=== PATIENT | female | born 1955 | race Asian ===

== ENCOUNTER 2019-01-24 22:09 | Emergency (ER) | payer SELFPAY ==
[~2019-01-24] VITALS: Ht 160 cm; Wt 68.2 kg
[2019-01-24 22:12] VITALS: BP 132/80
[2019-01-24] MEDS ORDERED: INSLAN SQ (22:44)
== END 2019-01-25 01:30 | disposition home or self-care (01) ==
LOC: EMS 22:11
DX: F31.9 Bipolar disorder, unspecified (principal); E11.9 Type 2 diabetes mellitus without complications; I10 Essential (primary) hypertension; Z79.4 Long term (current) use of insulin

== ENCOUNTER 2019-07-14 00:47 | Inpatient (IN) | payer MEDICARE ==
[~2019-07-14] VITALS: Ht 160 cm; Wt 73.8 kg
[~2019-07-14 00:47] MED LIST: AMLO5TAB9 PO; CIPR500S5 PO; DIVA500T52 PO; FOLI1 PO; INSLAN SQ; LISI-662 PO; METF-960 PO; MULT-248 PO; NALT50TA PO; SOLI5 PO; THIA100T67 PO
[2019-07-14 02:15] LABS: GLUCOSE,POINT OF CARE 235 MG/DL (70-110)
[2019-07-14] MEDS ORDERED: METF-960 PO (02:46)
[2019-07-14] MEDS ORDERED: DIVA125T32 PO (02:46)
[2019-07-14] MEDS ORDERED: NALT50TA6 PO (02:46)
[2019-07-14] MEDS ORDERED: ZIPR20CA2 PO (02:46)
[2019-07-14] MEDS ORDERED: SOLI5 PO (02:46)
[2019-07-14] MEDS ORDERED: AMLO5TAB9 PO (02:46)
[2019-07-14] MEDS ORDERED: LISI-660 PO (02:46)
[2019-07-14] MEDS ORDERED: DIVALPROEX SODIUM 125 MG DR TABLET PO ONE (03:45)
[2019-07-14] MEDS ORDERED: SOLIFENACIN SUCCINATE 5 MG TABLET PO ONE (03:45)
[2019-07-14] MEDS ORDERED: AmLODIPine BESYLATE 5 MG TABLET PO ONE (03:45)
[2019-07-14] MEDS ORDERED: LISINOPRIL 10 MG TABLET PO ONE (03:45)
[2019-07-14] MEDS ORDERED: MetFORMIN HCL 500 MG TABLET PO ONE (03:45)
[2019-07-14] MEDS ORDERED: ZIPRASIDONE HCL 20 MG CAPSULE PO ONE (04:00)
[2019-07-14 04:37] LABS: BASOPHILS % (AUTO) 0.6 % (0.0-2.0); EOSINOPHILS % (AUTO) 4.8 % (1.0-6.0); HEMATOCRIT 39.4 % (36-46); HEMOGLOBIN 13.2 g/dL (12.0-16.0); LYMPHOCYTES # (AUTO) 3.2 K/uL (1.0-4.8); LYMPHOCYTES % (AUTO) 40.4 % (22.0-44.0); MEAN CORPUSCULAR HEMOGLOBIN 31.2 pg (26.0-34.0); MEAN CORPUSCULAR HGB CONC 33.6 G/dL (31.0-37.0); MEAN CORPUSCULAR VOLUME 93 fL (80-100); MONOCYTES # (AUTO) 0.6 K/uL (0.1-1.0); MONOCYTES % (AUTO) 7.6 % (2.0-9.0); NEUTROPHILS # (AUTO) 3.7 K/uL (1.8-7.7); NEUTROPHILS % (AUTO) 46.6 % (40.0-70.0); PLATELET COUNT (AUTO) 312 K/uL (150-450); RED BLOOD CELL COUNT(AUTO) 4.24 MIL/uL (4.00-5.20); RED CELL DISTRIBUTION WIDTH 14.1 % (11.5-14.5)
[2019-07-14 05:14] LABS: ALANINE AMINOTRANSFERASE 12 U/L (12-78); ALKALINE PHOSPHATASE 126 U/L (46-116); ANION GAP 7 mmol/L (8-16); ASPARTATE AMINOTRANSFERASE 12 U/L (15-37); BILIRUBIN,TOTAL 0.2 mg/dL (0.1-1.0); CALCIUM, TOTAL 9.1 mg/dL (8.8-10.5); CARBON DIOXIDE 29 mmol/L (22-29); CHLORIDE 99 mmol/L (98-107); CREATININE 0.82 mg/dL (0.60-1.30); GLOMERULAR FILTR. RATE CALC > 60 mL/min (>60); GLUCOSE,RANDOM 252 mg/dL (70-110); POTASSIUM 3.6 mmol/L (3.5-5.1); SODIUM SERUM 135 mmol/L (136-145); TOTAL PROTEIN, SERUM 7.4 g/dL (6.4-8.2); UREA NITROGEN, BLOOD 11 mg/dL (7-18)
[2019-07-14] MEDS ORDERED: ZOLPIDEM TARTRATE 10 MG TABLET PO PRN (05:45)
[2019-07-14] MEDS ORDERED: OLANZapine 5 MG TABLET PO PRN ×2 (05:45→06:00)
[2019-07-14] MEDS ORDERED: LORazepam 2 MG TABLET PO PRN (05:45)
[2019-07-14 06:55] LABS: GLUCOSE,POINT OF CARE 217 MG/DL (70-110)
[2019-07-14] MEDS ORDERED: LOPERAMIDE HCL 2 MG CAPSULE PO PRN (07:15)
[2019-07-14] MEDS ORDERED: ALBUTEROL SULFATE HFA 90 MCG/PUFF 8 GM INHALER IH PRN (07:15)
[2019-07-14] MEDS ORDERED: CloNIDine HCL 0.1 MG TABLET PO PRN (07:15)
[2019-07-14] MEDS ORDERED: DOCUSATE SODIUM 100 MG CAPSULE PO PRN (07:15)
[2019-07-14] MEDS ORDERED: PETROLATUM,WHITE 28 GM JELLY TP PRN (07:15)
[2019-07-14] MEDS ORDERED: IBUPROFEN 400 MG TABLET PO PRN (07:15)
[2019-07-14] MEDS ORDERED: GuaiFENesin/D-METHORPHAN [SUGAR-FREE] 200-20MG/10 ML SYRUP UDCUP PO PRN (07:15)
[2019-07-14] MEDS ORDERED: ACETAMINOPHEN 325 MG TABLET PO PRN (07:15)
[2019-07-14] MEDS ORDERED: MAGNESIUM HYDROXIDE SUSPENSION 30 ML UDCUP PO PRN (07:15)
[2019-07-14] MEDS ORDERED: NICOTINE 14 MG/24 HOUR PATCH TD PRN (07:15)
[2019-07-14] MEDS ORDERED: ONDANSETRON HCL 4 MG TABLET PO PRN (07:15)
[2019-07-14 14:25] VITALS: BP 140/78
[2019-07-14 14:26] LABS: GLUCOMETER DEV NAME(LOC) BV3S.; GLUCOSE,POINT OF CARE 206 MG/DL (70-110)
[2019-07-14] MEDS ORDERED: GLUCAGON,HUMAN RECOMBINANT 1 MG VIAL IM PRN (15:30)
[2019-07-14 16:15] VITALS: BP 140/74
[2019-07-14] MEDS: ZIPRASIDONE HCL 20 MG CAPSULE PO SCH (16:41)
[2019-07-14] MEDS: INSULIN LISPRO 100 UNITS/ML SQ PRN ×2 (17:00→21:00)
[2019-07-14 17:05] LABS: GLUCOMETER DEV NAME(LOC) BV3S.; GLUCOSE,POINT OF CARE 249 MG/DL (70-110)
[2019-07-14] MEDS: MetFORMIN HCL 500 MG TABLET PO SCH (17:07)
[2019-07-14] MEDS: LISINOPRIL 5 MG TABLET PO SCH (17:07)
[2019-07-14 20:46] LABS: GLUCOMETER DEV NAME(LOC) BV3S.; GLUCOSE,POINT OF CARE 258 MG/DL (70-110)
[2019-07-14] MEDS: INSULIN GLARGINE,HUM.REC.ANLOG 100 UNITS/ML SQ SCH (21:00)
[2019-07-15 01:30] VITALS: BP 133/76
[2019-07-15] MEDS ORDERED: PNEUMOCOCCAL VACCINE POLYVALENT 0.5 ML VIAL [PPSV23] IM ONE (02:00)
[2019-07-15] MEDS: ZIPRASIDONE HCL 20 MG CAPSULE PO SCH ×2 (06:35→16:34)
[2019-07-15] MEDS: MetFORMIN HCL 500 MG TABLET PO SCH ×2 (06:35→16:34)
[2019-07-15 06:58] LABS: GLUCOMETER DEV NAME(LOC) BV3S.; GLUCOSE,POINT OF CARE 119 MG/DL (70-110)
[2019-07-15 08:20] VITALS: BP 135/75
[2019-07-15 08:49] LABS: CHOL/HDL RATIO 5.5 (3.9-5.7)
[2019-07-15] MEDS: LISINOPRIL 5 MG TABLET PO SCH ×2 (09:16→16:33)
[2019-07-15] MEDS: INSULIN LISPRO 100 UNITS/ML SQ PRN ×3 (11:52→20:37)
[2019-07-15 12:01] LABS: GLUCOMETER DEV NAME(LOC) BV3S.; GLUCOSE,POINT OF CARE 150 MG/DL (70-110)
[2019-07-15] MEDS ORDERED: GuaiFENesin/D-METHORPHAN [SUGAR-FREE] 200-20MG/10 ML SYRUP UDCUP PO PRN (13:00)
[2019-07-15] MEDS ORDERED: HydrOXYzine PAMOATE 50 MG CAPSULE PO PRN (13:00)
[2019-07-15 16:15] LABS: GLUCOMETER DEV NAME(LOC) BV3S.; GLUCOSE,POINT OF CARE 223 MG/DL (70-110)
[2019-07-15] MEDS: THIAMINE HCL 100 MG TABLET PO SCH (16:34)
[2019-07-15 17:33] VITALS: BP 140/74
[2019-07-15] MEDS: DIVALPROEX SODIUM 500 MG ER TABLET PO SCH (20:32)
[2019-07-15] MEDS: INSULIN GLARGINE,HUM.REC.ANLOG 100 UNITS/ML SQ SCH (20:37)
[2019-07-15 20:48] LABS: GLUCOMETER DEV NAME(LOC) BV3S.; GLUCOSE,POINT OF CARE 156 MG/DL (70-110)
[2019-07-16 06:30] LABS: GLUCOMETER DEV NAME(LOC) BV3S.; GLUCOSE,POINT OF CARE 113 MG/DL (70-110)
[2019-07-16 06:32] VITALS: BP 144/81
[2019-07-16] MEDS: MetFORMIN HCL 500 MG TABLET PO SCH ×2 (07:02→16:12)
[2019-07-16] MEDS: ZIPRASIDONE HCL 20 MG CAPSULE PO SCH (07:02)
[2019-07-16 08:08] VITALS: BP 138/68
[2019-07-16] MEDS: LISINOPRIL 5 MG TABLET PO SCH ×2 (08:51→16:12)
[2019-07-16] MEDS: SOLIFENACIN SUCCINATE 5 MG TABLET PO SCH (08:51)
[2019-07-16] MEDS: MULTIVITAMINS WITH MINERALS, THERAPEUTIC TABLET PO SCH (08:51)
[2019-07-16] MEDS: NALTREXONE HCL 50 MG TABLET PO SCH (08:51)
[2019-07-16] MEDS: FOLIC ACID 1 MG TABLET PO SCH (08:51)
[2019-07-16] MEDS: THIAMINE HCL 100 MG TABLET PO SCH ×2 (08:51→16:12)
[2019-07-16 11:06] LABS: GLUCOMETER DEV NAME(LOC) BV3S.; GLUCOSE,POINT OF CARE 208 MG/DL (70-110)
[2019-07-16] MEDS: INSULIN LISPRO 100 UNITS/ML SQ PRN ×3 (11:43→21:00)
[2019-07-16] MEDS ORDERED: DIVA500T52 PO (15:26)
[2019-07-16] MEDS ORDERED: ZIPR40CA2 PO (15:26)
[2019-07-16] MEDS ORDERED: NALT50TA PO (15:26)
[2019-07-16] MEDS: ZIPRASIDONE HCL 40 MG CAPSULE PO SCH (16:12)
[2019-07-16 16:36] LABS: GLUCOMETER DEV NAME(LOC) BV3S.; GLUCOSE,POINT OF CARE 196 MG/DL (70-110)
[2019-07-16 19:20] VITALS: BP 116/69
[2019-07-16] MEDS: DIVALPROEX SODIUM 500 MG ER TABLET PO SCH (20:05)
[2019-07-16] MEDS: INSULIN GLARGINE,HUM.REC.ANLOG 100 UNITS/ML SQ SCH (21:00)
[2019-07-16 21:10] LABS: GLUCOMETER DEV NAME(LOC) BV3S.; GLUCOSE,POINT OF CARE 218 MG/DL (70-110)
[2019-07-17 06:16] LABS: GLUCOMETER DEV NAME(LOC) BV3S.; GLUCOSE,POINT OF CARE 132 MG/DL (70-110)
[2019-07-17 06:23] VITALS: BP 117/70
[2019-07-17] MEDS: ZIPRASIDONE HCL 40 MG CAPSULE PO SCH (06:56)
[2019-07-17] MEDS: MetFORMIN HCL 500 MG TABLET PO SCH (06:56)
[2019-07-17 08:07] VITALS: BP 148/90
[2019-07-17] MEDS ORDERED: BACTDSB PO (08:13)
[2019-07-17] MEDS ORDERED: CEPH250 PO (08:13)
[2019-07-17] MEDS: SOLIFENACIN SUCCINATE 5 MG TABLET PO SCH (08:17)
[2019-07-17] MEDS: NALTREXONE HCL 50 MG TABLET PO SCH (08:18)
[2019-07-17] MEDS: FOLIC ACID 1 MG TABLET PO SCH (08:18)
[2019-07-17] MEDS: LISINOPRIL 5 MG TABLET PO SCH (08:18)
[2019-07-17] MEDS: MULTIVITAMINS WITH MINERALS, THERAPEUTIC TABLET PO SCH (08:18)
[2019-07-17] MEDS: THIAMINE HCL 100 MG TABLET PO SCH (08:18)
[2019-07-17] MEDS ORDERED: SULFAMETHOX/TRIMETH DS 800-160 MG/TABLET PO SCH (09:00)
[2019-07-17] MEDS ORDERED: CEPHALEXIN MONOHYDRATE 250 MG CAPSULE PO SCH (09:00)
[2019-07-17] MEDS ORDERED: BACITRACIN 28.4 GM OINTMENT TP SCH (09:00)
== END 2019-07-17 10:00 | disposition home or self-care (01) | DRG 885 ==
LOC: EDBD 00:53 → EMS 00:53 → B3A 09:21
PROVIDERS: ADMIT Psychiatry & Neurology Psychiatry; ATTEND Psychiatry & Neurology Psychiatry
DX: F25.0 Schizoaffective disorder, bipolar type (principal); E87.1 Hypo-osmolality and hyponatremia; L03.119 Cellulitis of unspecified part of limb; E11.40 Type 2 diabetes mellitus with diabetic neuropathy, unspecified; E11.65 Type 2 diabetes mellitus with hyperglycemia; F32.9 Major depressive disorder, single episode, unspecified; F41.9 Anxiety disorder, unspecified; I10 Essential (primary) hypertension; R32 Unspecified urinary incontinence; Z79.4 Long term (current) use of insulin; Z91.14 Patient's other noncompliance with medication regimen; Z91.19 Patient's noncompliance with other medical treatment and regimen; Z63.9 Problem related to primary support group, unspecified; Z88.8 Allergy status to other drugs, medicaments and biological substances
CPT/HCPCS: G0480; J1815

== ENCOUNTER → 2019-09-26 | Outpatient (CLI) | payer MEDICARE ==
[~2019-09-26] MED LIST changes: +BACTDSB PO; +CEPH250 PO; +LISI-660 PO; +LISI-661 PO; +MAGOX PO; +NALT50TA6 PO; +ZIPR40CA2 PO; +ZIPR60CA2 PO
== END | disposition home or self-care (01) ==
LOC: LABMN 10:55
PROVIDERS: ATTEND Psychiatry & Neurology Psychiatry
DX: F25.9 Schizoaffective disorder, unspecified (principal); F17.200 Nicotine dependence, unspecified, uncomplicated; Z88.4 Allergy status to anesthetic agent

== ENCOUNTER 2019-09-28 12:22 | Emergency (ER) | payer MEDICARE ==
[~2019-09-28] VITALS: Ht 154.9 cm; Wt 68.0 kg
[~2019-09-28 12:22] MED LIST changes: -LISI-661 PO; -MAGOX PO; -ZIPR60CA2 PO
[2019-09-28] MEDS ORDERED: SODIUM CHLORIDE 0.9% 1,000 ML IV ONE (12:45)
[2019-09-28] MEDS ORDERED: ONDANSETRON HCL 4 MG/2 ML VIAL IVP ONE (12:45)
[2019-09-28 13:00] LABS: BASOPHILS % (AUTO) 0.4 % (0.0-2.0); EOSINOPHILS % (AUTO) 0.5 % (1.0-6.0); HEMATOCRIT 42.4 % (36-46); HEMOGLOBIN 14.1 g/dL (12.0-16.0); LYMPHOCYTES # (AUTO) 1.7 K/uL (1.0-4.8); LYMPHOCYTES % (AUTO) 14.7 % (22.0-44.0); MEAN CORPUSCULAR HEMOGLOBIN 30.5 pg (26.0-34.0); MEAN CORPUSCULAR HGB CONC 33.3 G/dL (31.0-37.0); MEAN CORPUSCULAR VOLUME 92 fL (80-100); MONOCYTES # (AUTO) 0.4 K/uL (0.1-1.0); MONOCYTES % (AUTO) 3.3 % (2.0-9.0); NEUTROPHILS # (AUTO) 9.4 K/uL (1.8-7.7); NEUTROPHILS % (AUTO) 81.1 % (40.0-70.0); PLATELET COUNT (AUTO) 363 K/uL (150-450); RED BLOOD CELL COUNT(AUTO) 4.63 MIL/uL (4.00-5.20); RED CELL DISTRIBUTION WIDTH 13.9 % (11.5-14.5)
[2019-09-28 13:13] LABS: ANION GAP 14 mmol/L (8-16); CALCIUM, TOTAL 9.2 mg/dL (8.8-10.5); CARBON DIOXIDE 23 mmol/L (22-29); CHLORIDE 100 mmol/L (98-107); CREATININE 0.99 mg/dL (0.60-1.30); GLOMERULAR FILTR. RATE CALC 58 mL/min (>60); GLUCOSE,RANDOM 179 mg/dL (70-110); POTASSIUM 3.4 mmol/L (3.5-5.1); SODIUM SERUM 137 mmol/L (136-145); UREA NITROGEN, BLOOD 9 mg/dL (7-18)
[2019-09-28 13:20] LABS: ALANINE AMINOTRANSFERASE 24 U/L (12-78); ALBUMIN 3.4 g/dL (3.4-5.0); ALKALINE PHOSPHATASE 123 U/L (46-116); ASPARTATE AMINOTRANSFERASE 19 U/L (15-37); BILIRUBIN,TOTAL 0.5 mg/dL (0.1-1.0); LIPASE 343 U/L (73-393); TOTAL PROTEIN, SERUM 8.1 g/dL (6.4-8.2); VALPROIC ACID 42 mcg/mL (50-100)
[2019-09-28 14:43] LABS: APPEARANCE,URINE CLOUDY (CLEAR); BILIRUBIN,URINE NEGATIVE (NEGATIVE); GLUCOSE, URINE (UA) NEGATIVE (NEGATIVE); KETONES,URINE 15 mg/dL (NEGATIVE); LEUKOCYTE ESTERASE ,URINE SMALL (NEGATIVE); OCCULT BLOOD,URINE NEGATIVE (NEGATIVE); PROTEIN,URINE POS 1+ (NEGATIVE)
[2019-09-28] MEDS ORDERED: POTASSIUM CHLORIDE 20 MEQ ER TABLET PO ONE (14:45)
[2019-09-28 14:54] LABS: AMPHET/METH SCREEN,URINE NEGATIVE (NEGATIVE); BARBITURATE SCREEN, URINE NEGATIVE (NEGATIVE); BENZODIAZEPINES SCREEN,URINE NEGATIVE (NEGATIVE); CANNABINOID SCREEN,URINE NEGATIVE (NEGATIVE); COCAINE SCREEN,URINE NEGATIVE (NEGATIVE); METHADONE SCREEN, URINE NEGATIVE (NEGATIVE); OPIATE SCREEN,URINE NEGATIVE (NEGATIVE)
[2019-09-28 14:57] LABS: PHENCYCLIDINE SCREEN,URINE NEGATIVE (NEGATIVE)
[2019-09-28 15:17] LABS: BACTERIA,URINE Many /HPF (None Seen); NITRATE,URINE POSITIVE (NEGATIVE); RBC,URINE 0-2 /HPF (0-2); SQUAMOUS EPITHELIAL CELL,UR Moderate /LPF (None Seen); WBC,URINE 26-50 /HPF (0-5)
[2019-09-28] MEDS ORDERED: CefTRIAXone 1 GM/DEXTROSE 50 ML IV ONE (15:30)
[2019-09-28 16:31] VITALS: BP 143/66
== END 2019-09-28 20:15 | disposition home or self-care (01) ==
LOC: EMS 12:24
DX: F25.9 Schizoaffective disorder, unspecified (principal); F22 Delusional disorders; E87.6 Hypokalemia; R11.2 Nausea with vomiting, unspecified; F31.9 Bipolar disorder, unspecified; E11.9 Type 2 diabetes mellitus without complications; I10 Essential (primary) hypertension; Z88.8 Allergy status to other drugs, medicaments and biological substances; Z79.84 Long term (current) use of oral hypoglycemic drugs; Z79.899 Other long term (current) drug therapy; Z79.4 Long term (current) use of insulin
CPT/HCPCS: 36415; 71045; 80053; 80164; 80307; 81001; 83690; 84484; 85025; 87077; 87086; 93005; 96365; 96375; 99285; G0480; J0696; J2405; J7030

== ENCOUNTER 2019-09-29 12:56 | Inpatient (IN) | payer MEDICARE ==
[~2019-09-29] VITALS: Ht 152.4 cm; Wt 70.8 kg
[~2019-09-29 12:56] MED LIST changes: -BACTDSB PO; -CEPH250 PO; -CIPR500S5 PO; -LISI-662 PO; -NALT50TA6 PO
[2019-09-29] MEDS ORDERED: ZOLPIDEM TARTRATE 10 MG TABLET PO PRN (13:30)
[2019-09-29] MEDS ORDERED: HALOPERIDOL 5 MG TABLET PO PRN (13:30)
[2019-09-29 13:43] VITALS: BP 153/98
[2019-09-29] MEDS: NALTREXONE HCL 50 MG TABLET PO SCH (14:59)
[2019-09-29] MEDS ORDERED: -PHARMACY VACCINE NOTE- MISC ONE (15:00)
[2019-09-29 15:43] LABS: GLUCOMETER DEV NAME(LOC) BV2X.; GLUCOSE,POINT OF CARE 201 MG/DL (70-110)
[2019-09-29 16:11] VITALS: BP 138/59
[2019-09-29] MEDS: ZIPRASIDONE HCL 40 MG CAPSULE PO SCH (16:32)
[2019-09-29] MEDS ORDERED: LORazepam 2 MG/ML VIAL ONE (16:36)
[2019-09-29 16:37] VITALS: BP 126/78
[2019-09-29] MEDS: LORazepam 2 MG TABLET PO PRN (16:45)
[2019-09-29] MEDS ORDERED: GLUCAGON,HUMAN RECOMBINANT 1 MG VIAL IM PRN (20:45)
[2019-09-29] MEDS: DIVALPROEX SODIUM 500 MG ER TABLET PO SCH (21:00)
[2019-09-29 21:02] LABS: GLUCOMETER DEV NAME(LOC) BV2X.; GLUCOSE,POINT OF CARE 253 MG/DL (70-110)
[2019-09-29] MEDS: INSULIN LISPRO 100 UNITS/ML SQ PRN (21:05)
[2019-09-29] MEDS: INSULIN GLARGINE,HUM.REC.ANLOG 100 UNITS/ML SQ SCH (21:06)
[2019-09-30 06:23] VITALS: BP 110/89
[2019-09-30 06:29] LABS: GLUCOMETER DEV NAME(LOC) BV2X.; GLUCOSE,POINT OF CARE 188 MG/DL (70-110)
[2019-09-30] MEDS: MetFORMIN HCL 500 MG TABLET PO SCH ×2 (06:49→16:33)
[2019-09-30] MEDS: ZIPRASIDONE HCL 40 MG CAPSULE PO SCH ×2 (06:49→16:33)
[2019-09-30] MEDS: INSULIN LISPRO 100 UNITS/ML SQ PRN ×2 (06:52→16:39)
[2019-09-30 08:14] LABS: BASOPHILS % (AUTO) 0.6 % (0.0-2.0); EOSINOPHILS % (AUTO) 2.6 % (1.0-6.0); HEMATOCRIT 41.6 % (36-46); HEMOGLOBIN 14.2 g/dL (12.0-16.0); LYMPHOCYTES # (AUTO) 2.5 K/uL (1.0-4.8); LYMPHOCYTES % (AUTO) 46.9 % (22.0-44.0); MEAN CORPUSCULAR HEMOGLOBIN 31.5 pg (26.0-34.0); MEAN CORPUSCULAR HGB CONC 34.2 G/dL (31.0-37.0); MEAN CORPUSCULAR VOLUME 92 fL (80-100); MONOCYTES # (AUTO) 0.3 K/uL (0.1-1.0); MONOCYTES % (AUTO) 5.5 % (2.0-9.0); NEUTROPHILS # (AUTO) 2.3 K/uL (1.8-7.7); NEUTROPHILS % (AUTO) 44.4 % (40.0-70.0); PLATELET COUNT (AUTO) 337 K/uL (150-450); RED BLOOD CELL COUNT(AUTO) 4.51 MIL/uL (4.00-5.20); RED CELL DISTRIBUTION WIDTH 13.6 % (11.5-14.5)
[2019-09-30 08:16] VITALS: BP 137/94
[2019-09-30 08:55] LABS: ALANINE AMINOTRANSFERASE 30 U/L (12-78); ALBUMIN 3.2 g/dL (3.4-5.0); ALKALINE PHOSPHATASE 121 U/L (46-116); ANION GAP 9 mmol/L (8-16); ASPARTATE AMINOTRANSFERASE 23 U/L (15-37); BILIRUBIN,TOTAL 0.2 mg/dL (0.1-1.0); CALCIUM, TOTAL 9.1 mg/dL (8.8-10.5); CARBON DIOXIDE 26 mmol/L (22-29); CHLORIDE 104 mmol/L (98-107); CHOL/HDL RATIO 4.6 (3.9-5.7); CHOLESTEROL 174 mg/dL (131-200); CREATINE KINASE, TOTAL ONLY 538 U/L (26-192); FREE T4 (FREE THYROXINE) 0.96 ng/dL (0.76-1.46); GLOMERULAR FILTR. RATE CALC > 60 mL/min (>60); GLUCOSE,RANDOM 242 mg/dL (70-110); HCG,QUANTITATIVE 1 mIU/mL (0-6); HDL CHOLESTEROL 38 mg/dL (40-60); LDL CHOL (CALC.) 104 mg/dL (0-130); POTASSIUM 4.1 mmol/L (3.5-5.1); SODIUM SERUM 139 mmol/L (136-145); THYROID STIMULATING HORMONE 0.87 uIU/mL (0.36-3.74); TOTAL PROTEIN, SERUM 7.9 g/dL (6.4-8.2); TRIGLYCERIDES 159 mg/dL (15-150); UREA NITROGEN, BLOOD 12 mg/dL (7-18)
[2019-09-30] MEDS: THIAMINE HCL 100 MG TABLET PO SCH ×2 (09:12→16:33)
[2019-09-30] MEDS: MULTIVITAMINS WITH MINERALS, THERAPEUTIC TABLET PO SCH (09:12)
[2019-09-30] MEDS: LISINOPRIL 5 MG TABLET PO SCH ×2 (09:12→16:33)
[2019-09-30] MEDS: NALTREXONE HCL 50 MG TABLET PO SCH (09:12)
[2019-09-30] MEDS: FOLIC ACID 1 MG TABLET PO SCH (09:12)
[2019-09-30] MEDS: AmLODIPine BESYLATE 5 MG TABLET PO SCH (09:13)
[2019-09-30] MEDS: CEPHALEXIN MONOHYDRATE 500 MG CAPSULE PO SCH ×3 (09:13→16:33)
[2019-09-30] MEDS: SOLIFENACIN SUCCINATE 5 MG TABLET PO SCH (09:16)
[2019-09-30 11:28] LABS: GLUCOMETER DEV NAME(LOC) BV2X.; GLUCOSE,POINT OF CARE 94 MG/DL (70-110)
[2019-09-30 16:19] VITALS: BP 125/82
[2019-09-30 16:21] LABS: GLUCOMETER DEV NAME(LOC) BV2X.; GLUCOSE,POINT OF CARE 150 MG/DL (70-110)
[2019-09-30] MEDS: LORazepam 2 MG TABLET PO PRN (16:26)
[2019-09-30] MEDS ORDERED: MAGNESIUM OXIDE 400 MG TABLET PO ONE (18:00)
[2019-09-30 20:25] LABS: GLUCOMETER DEV NAME(LOC) BV2X.; GLUCOSE,POINT OF CARE 109 MG/DL (70-110)
[2019-09-30] MEDS: DIVALPROEX SODIUM 500 MG ER TABLET PO SCH (21:04)
[2019-09-30] MEDS: INSULIN GLARGINE,HUM.REC.ANLOG 100 UNITS/ML SQ SCH (21:07)
[2019-10-01 04:09] VITALS: BP 120/80
[2019-10-01 06:42] LABS: GLUCOMETER DEV NAME(LOC) BV2X.; GLUCOSE,POINT OF CARE 155 MG/DL (70-110)
[2019-10-01] MEDS: MetFORMIN HCL 500 MG TABLET PO SCH ×2 (06:52→16:34)
[2019-10-01] MEDS: INSULIN LISPRO 100 UNITS/ML SQ PRN ×3 (06:53→20:37)
[2019-10-01] MEDS: ZIPRASIDONE HCL 40 MG CAPSULE PO SCH (07:27)
[2019-10-01 08:17] VITALS: BP 108/64
[2019-10-01] MEDS: MAGNESIUM OXIDE 400 MG TABLET PO SCH ×2 (08:45→16:33)
[2019-10-01] MEDS: NALTREXONE HCL 50 MG TABLET PO SCH (08:45)
[2019-10-01] MEDS: LISINOPRIL 5 MG TABLET PO SCH ×2 (08:45→16:34)
[2019-10-01] MEDS: THIAMINE HCL 100 MG TABLET PO SCH ×2 (08:45→16:34)
[2019-10-01] MEDS: SOLIFENACIN SUCCINATE 5 MG TABLET PO SCH (08:45)
[2019-10-01] MEDS: FOLIC ACID 1 MG TABLET PO SCH (08:45)
[2019-10-01] MEDS: CEPHALEXIN MONOHYDRATE 500 MG CAPSULE PO SCH ×3 (08:45→16:33)
[2019-10-01] MEDS: AmLODIPine BESYLATE 5 MG TABLET PO SCH (08:46)
[2019-10-01] MEDS: MULTIVITAMINS WITH MINERALS, THERAPEUTIC TABLET PO SCH (08:46)
[2019-10-01] MEDS: LORazepam 2 MG TABLET PO PRN (09:28)
[2019-10-01 11:20] LABS: GLUCOMETER DEV NAME(LOC) BV2X.; GLUCOSE,POINT OF CARE 139 MG/DL (70-110)
[2019-10-01 16:30] VITALS: BP 123/66
[2019-10-01 16:33] LABS: GLUCOMETER DEV NAME(LOC) BV2X.; GLUCOSE,POINT OF CARE 203 MG/DL (70-110)
[2019-10-01] MEDS: ZIPRASIDONE HCL 60 MG CAPSULE PO SCH (16:34)
[2019-10-01 20:28] LABS: GLUCOMETER DEV NAME(LOC) BV2X.; GLUCOSE,POINT OF CARE 165 MG/DL (70-110)
[2019-10-01] MEDS: DIVALPROEX SODIUM 500 MG ER TABLET PO SCH (20:32)
[2019-10-01] MEDS: INSULIN GLARGINE,HUM.REC.ANLOG 100 UNITS/ML SQ SCH (20:37)
[2019-10-02 01:43] VITALS: BP 137/81
[2019-10-02 06:33] LABS: GLUCOMETER DEV NAME(LOC) BV2X.; GLUCOSE,POINT OF CARE 158 MG/DL (70-110)
[2019-10-02] MEDS: INSULIN LISPRO 100 UNITS/ML SQ PRN ×2 (06:44→16:37)
[2019-10-02] MEDS: MetFORMIN HCL 500 MG TABLET PO SCH ×2 (06:44→16:34)
[2019-10-02] MEDS: ZIPRASIDONE HCL 60 MG CAPSULE PO SCH ×2 (06:52→16:34)
[2019-10-02] MEDS: THIAMINE HCL 100 MG TABLET PO SCH ×2 (07:54→16:34)
[2019-10-02] MEDS: FOLIC ACID 1 MG TABLET PO SCH (07:54)
[2019-10-02] MEDS: MULTIVITAMINS WITH MINERALS, THERAPEUTIC TABLET PO SCH (07:54)
[2019-10-02] MEDS: MAGNESIUM OXIDE 400 MG TABLET PO SCH ×2 (07:55→16:34)
[2019-10-02] MEDS: AmLODIPine BESYLATE 5 MG TABLET PO SCH (07:55)
[2019-10-02] MEDS: SOLIFENACIN SUCCINATE 5 MG TABLET PO SCH (07:55)
[2019-10-02] MEDS: LISINOPRIL 5 MG TABLET PO SCH ×2 (07:55→16:34)
[2019-10-02] MEDS: NALTREXONE HCL 50 MG TABLET PO SCH (07:55)
[2019-10-02] MEDS: LORazepam 2 MG TABLET PO PRN ×2 (07:56→15:56)
[2019-10-02] MEDS: CEPHALEXIN MONOHYDRATE 500 MG CAPSULE PO SCH ×3 (07:56→16:34)
[2019-10-02 08:10] VITALS: BP 162/80
[2019-10-02 11:41] LABS: GLUCOMETER DEV NAME(LOC) BV2X.; GLUCOSE,POINT OF CARE 124 MG/DL (70-110)
[2019-10-02 16:10] VITALS: BP 139/87
[2019-10-02 16:47] LABS: GLUCOMETER DEV NAME(LOC) BV2X.; GLUCOSE,POINT OF CARE 203 MG/DL (70-110)
[2019-10-02 20:32] LABS: GLUCOMETER DEV NAME(LOC) BV2X.; GLUCOSE,POINT OF CARE 135 MG/DL (70-110)
[2019-10-02] MEDS: DIVALPROEX SODIUM 500 MG ER TABLET PO SCH (20:39)
[2019-10-02] MEDS: INSULIN GLARGINE,HUM.REC.ANLOG 100 UNITS/ML SQ SCH (20:40)
[2019-10-03 06:07] VITALS: BP 130/81
[2019-10-03 06:32] LABS: GLUCOMETER DEV NAME(LOC) BV2X.; GLUCOSE,POINT OF CARE 119 MG/DL (70-110)
[2019-10-03] MEDS: MetFORMIN HCL 500 MG TABLET PO SCH ×2 (06:46→16:30)
[2019-10-03] MEDS: ZIPRASIDONE HCL 60 MG CAPSULE PO SCH ×2 (06:56→16:30)
[2019-10-03] MEDS: FOLIC ACID 1 MG TABLET PO SCH (08:03)
[2019-10-03] MEDS: SOLIFENACIN SUCCINATE 5 MG TABLET PO SCH (08:03)
[2019-10-03] MEDS: LISINOPRIL 5 MG TABLET PO SCH ×2 (08:03→16:30)
[2019-10-03] MEDS: CEPHALEXIN MONOHYDRATE 500 MG CAPSULE PO SCH ×3 (08:03→16:30)
[2019-10-03] MEDS: MAGNESIUM OXIDE 400 MG TABLET PO SCH ×2 (08:03→16:30)
[2019-10-03] MEDS: AmLODIPine BESYLATE 5 MG TABLET PO SCH (08:03)
[2019-10-03] MEDS: NALTREXONE HCL 50 MG TABLET PO SCH (08:03)
[2019-10-03] MEDS: MULTIVITAMINS WITH MINERALS, THERAPEUTIC TABLET PO SCH (08:03)
[2019-10-03] MEDS: THIAMINE HCL 100 MG TABLET PO SCH ×2 (08:03→16:30)
[2019-10-03 08:34] VITALS: BP 141/89
[2019-10-03 12:17] LABS: GLUCOMETER DEV NAME(LOC) BV2X.; GLUCOSE,POINT OF CARE 127 MG/DL (70-110)
[2019-10-03 16:19] LABS: GLUCOMETER DEV NAME(LOC) BV2X.; GLUCOSE,POINT OF CARE 218 MG/DL (70-110)
[2019-10-03] MEDS: INSULIN LISPRO 100 UNITS/ML SQ PRN (16:35)
[2019-10-03 17:56] VITALS: BP 170/78
[2019-10-03 20:32] LABS: GLUCOMETER DEV NAME(LOC) BV2X.; GLUCOSE,POINT OF CARE 109 MG/DL (70-110)
[2019-10-03] MEDS: DIVALPROEX SODIUM 500 MG ER TABLET PO SCH (20:32)
[2019-10-03] MEDS: INSULIN GLARGINE,HUM.REC.ANLOG 100 UNITS/ML SQ SCH (20:46)
[2019-10-04 06:33] VITALS: BP 128/83
[2019-10-04] MEDS: MetFORMIN HCL 500 MG TABLET PO SCH ×2 (07:08→16:50)
[2019-10-04] MEDS: ZIPRASIDONE HCL 60 MG CAPSULE PO SCH ×2 (07:09→16:50)
[2019-10-04 07:12] LABS: GLUCOMETER DEV NAME(LOC) BV2X.; GLUCOSE,POINT OF CARE 124 MG/DL (70-110)
[2019-10-04 07:20] LABS: APPEARANCE,URINE CLEAR (CLEAR); BILIRUBIN,URINE NEGATIVE (NEGATIVE); GLUCOSE, URINE (UA) NEGATIVE (NEGATIVE); KETONES,URINE NEGATIVE (NEGATIVE); LEUKOCYTE ESTERASE ,URINE NEGATIVE (NEGATIVE); NITRATE,URINE NEGATIVE (NEGATIVE); OCCULT BLOOD,URINE NEGATIVE (NEGATIVE); PROTEIN,URINE NEGATIVE (NEGATIVE); UROBILINOGEN,URINE 0.2 mg/dL (<=1.0)
[2019-10-04 08:22] VITALS: BP 172/99
[2019-10-04] MEDS: CEPHALEXIN MONOHYDRATE 500 MG CAPSULE PO SCH ×3 (08:32→16:51)
[2019-10-04] MEDS: FOLIC ACID 1 MG TABLET PO SCH (08:32)
[2019-10-04] MEDS: MULTIVITAMINS WITH MINERALS, THERAPEUTIC TABLET PO SCH (08:33)
[2019-10-04] MEDS: SOLIFENACIN SUCCINATE 5 MG TABLET PO SCH (08:33)
[2019-10-04] MEDS: NALTREXONE HCL 50 MG TABLET PO SCH (08:33)
[2019-10-04] MEDS: AmLODIPine BESYLATE 5 MG TABLET PO SCH (08:33)
[2019-10-04] MEDS: MAGNESIUM OXIDE 400 MG TABLET PO SCH ×2 (08:33→16:51)
[2019-10-04] MEDS: THIAMINE HCL 100 MG TABLET PO SCH ×2 (08:34→16:51)
[2019-10-04] MEDS: LISINOPRIL 10 MG TABLET PO SCH ×2 (08:34→16:52)
[2019-10-04] MEDS: INSULIN LISPRO 100 UNITS/ML SQ PRN ×3 (11:43→20:45)
[2019-10-04 11:49] LABS: GLUCOMETER DEV NAME(LOC) BV2X.; GLUCOSE,POINT OF CARE 212 MG/DL (70-110)
[2019-10-04 16:10] VITALS: BP 125/77
[2019-10-04 18:06] LABS: GLUCOMETER DEV NAME(LOC) BV2X.; GLUCOSE,POINT OF CARE 158 MG/DL (70-110)
[2019-10-04] MEDS: DIVALPROEX SODIUM 500 MG ER TABLET PO SCH (20:38)
[2019-10-04] MEDS: INSULIN GLARGINE,HUM.REC.ANLOG 100 UNITS/ML SQ SCH (20:43)
[2019-10-04 20:53] LABS: GLUCOMETER DEV NAME(LOC) BV2X.; GLUCOSE,POINT OF CARE 214 MG/DL (70-110)
[2019-10-05 02:11] VITALS: BP 125/75
[2019-10-05] MEDS ORDERED: INFLUENZA VIRUS VACCINE QVS 2019-20 (3YR+)/PF 60 MCG/0.5 ML SYRINGE IM ONE (05:15)
[2019-10-05 06:10] LABS: GLUCOMETER DEV NAME(LOC) BV2S.; GLUCOSE,POINT OF CARE 143 MG/DL (70-110)
[2019-10-05] MEDS: ZIPRASIDONE HCL 60 MG CAPSULE PO SCH ×2 (06:32→16:04)
[2019-10-05] MEDS: MetFORMIN HCL 500 MG TABLET PO SCH ×2 (06:32→16:04)
[2019-10-05] MEDS: INSULIN LISPRO 100 UNITS/ML SQ PRN ×4 (06:48→20:25)
[2019-10-05 08:00] VITALS: BP 129/70
[2019-10-05] MEDS: MULTIVITAMINS WITH MINERALS, THERAPEUTIC TABLET PO SCH (08:21)
[2019-10-05] MEDS: SOLIFENACIN SUCCINATE 5 MG TABLET PO SCH (08:21)
[2019-10-05] MEDS: FOLIC ACID 1 MG TABLET PO SCH (08:22)
[2019-10-05] MEDS: THIAMINE HCL 100 MG TABLET PO SCH ×2 (08:22→16:04)
[2019-10-05] MEDS: AmLODIPine BESYLATE 5 MG TABLET PO SCH (08:22)
[2019-10-05] MEDS: LISINOPRIL 10 MG TABLET PO SCH ×2 (08:22→16:04)
[2019-10-05] MEDS: NALTREXONE HCL 50 MG TABLET PO SCH (08:22)
[2019-10-05] MEDS: MAGNESIUM OXIDE 400 MG TABLET PO SCH ×2 (08:22→16:04)
[2019-10-05 11:31] LABS: GLUCOMETER DEV NAME(LOC) BV2X.; GLUCOSE,POINT OF CARE 191 MG/DL (70-110)
[2019-10-05 16:00] VITALS: BP 139/78
[2019-10-05 16:44] LABS: GLUCOMETER DEV NAME(LOC) BV2X.; GLUCOSE,POINT OF CARE 237 MG/DL (70-110)
[2019-10-05] MEDS: DIVALPROEX SODIUM 500 MG ER TABLET PO SCH (20:05)
[2019-10-05] MEDS: INSULIN GLARGINE,HUM.REC.ANLOG 100 UNITS/ML SQ SCH (20:24)
[2019-10-05 20:31] LABS: GLUCOMETER DEV NAME(LOC) BV2X.; GLUCOSE,POINT OF CARE 178 MG/DL (70-110)
[2019-10-06 04:03] VITALS: BP 113/69
[2019-10-06 06:26] LABS: GLUCOMETER DEV NAME(LOC) BV2X.; GLUCOSE,POINT OF CARE 104 MG/DL (70-110)
[2019-10-06] MEDS: MetFORMIN HCL 500 MG TABLET PO SCH ×2 (06:50→16:38)
[2019-10-06] MEDS: ZIPRASIDONE HCL 60 MG CAPSULE PO SCH ×2 (06:50→16:37)
[2019-10-06 08:01] LABS: ALANINE AMINOTRANSFERASE 26 U/L (12-78); ALBUMIN 3.1 g/dL (3.4-5.0); ALKALINE PHOSPHATASE 96 U/L (46-116); ANION GAP 4 mmol/L (8-16); ASPARTATE AMINOTRANSFERASE 14 U/L (15-37); BILIRUBIN,TOTAL 0.1 mg/dL (0.1-1.0); CALCIUM, TOTAL 8.6 mg/dL (8.8-10.5); CARBON DIOXIDE 33 mmol/L (22-29); CHLORIDE 103 mmol/L (98-107); CREATINE KINASE, TOTAL ONLY 111 U/L (26-192); CREATININE 0.74 mg/dL (0.60-1.30); GLOMERULAR FILTR. RATE CALC > 60 mL/min (>60); GLUCOSE,RANDOM 120 mg/dL (70-110); POTASSIUM 4.1 mmol/L (3.5-5.1); SODIUM SERUM 140 mmol/L (136-145); TOTAL PROTEIN, SERUM 7.4 g/dL (6.4-8.2); UREA NITROGEN, BLOOD 11 mg/dL (7-18)
[2019-10-06 08:42] VITALS: BP 140/89
[2019-10-06] MEDS: SOLIFENACIN SUCCINATE 5 MG TABLET PO SCH (08:47)
[2019-10-06] MEDS: FOLIC ACID 1 MG TABLET PO SCH (08:47)
[2019-10-06] MEDS: MAGNESIUM OXIDE 400 MG TABLET PO SCH ×2 (08:47→16:37)
[2019-10-06] MEDS: NALTREXONE HCL 50 MG TABLET PO SCH (08:47)
[2019-10-06] MEDS: MULTIVITAMINS WITH MINERALS, THERAPEUTIC TABLET PO SCH (08:48)
[2019-10-06] MEDS: LISINOPRIL 10 MG TABLET PO SCH ×2 (08:48→16:37)
[2019-10-06] MEDS: AmLODIPine BESYLATE 5 MG TABLET PO SCH (08:48)
[2019-10-06] MEDS: THIAMINE HCL 100 MG TABLET PO SCH ×2 (08:48→16:38)
[2019-10-06 11:14] LABS: GLUCOMETER DEV NAME(LOC) BV2X.; GLUCOSE,POINT OF CARE 141 MG/DL (70-110)
[2019-10-06] MEDS: INSULIN LISPRO 100 UNITS/ML SQ PRN ×3 (12:29→20:44)
[2019-10-06 16:10] VITALS: BP 162/60
[2019-10-06 16:21] LABS: GLUCOMETER DEV NAME(LOC) BV2X.; GLUCOSE,POINT OF CARE 174 MG/DL (70-110)
[2019-10-06] MEDS ORDERED: CloNIDine HCL 0.1 MG TABLET PO PRN (18:15)
[2019-10-06 18:54] VITALS: BP 141/79
[2019-10-06 20:16] LABS: GLUCOMETER DEV NAME(LOC) BV2X.; GLUCOSE,POINT OF CARE 206 MG/DL (70-110)
[2019-10-06] MEDS: DIVALPROEX SODIUM 500 MG ER TABLET PO SCH (20:37)
[2019-10-06] MEDS: INSULIN GLARGINE,HUM.REC.ANLOG 100 UNITS/ML SQ SCH (20:44)
[2019-10-07 02:40] VITALS: BP 137/68
[2019-10-07] MEDS: MetFORMIN HCL 500 MG TABLET PO SCH ×2 (06:37→16:26)
[2019-10-07] MEDS: INSULIN LISPRO 100 UNITS/ML SQ PRN ×2 (06:38→21:13)
[2019-10-07 06:39] LABS: GLUCOMETER DEV NAME(LOC) BV2X.; GLUCOSE,POINT OF CARE 185 MG/DL (70-110)
[2019-10-07] MEDS: ZIPRASIDONE HCL 60 MG CAPSULE PO SCH ×2 (06:40→16:26)
[2019-10-07 08:23] VITALS: BP 125/78
[2019-10-07] MEDS: LISINOPRIL 10 MG TABLET PO SCH ×2 (09:02→16:26)
[2019-10-07] MEDS: FOLIC ACID 1 MG TABLET PO SCH (09:02)
[2019-10-07] MEDS: MULTIVITAMINS WITH MINERALS, THERAPEUTIC TABLET PO SCH (09:02)
[2019-10-07] MEDS: AmLODIPine BESYLATE 5 MG TABLET PO SCH (09:02)
[2019-10-07] MEDS: MAGNESIUM OXIDE 400 MG TABLET PO SCH ×2 (09:03→16:26)
[2019-10-07] MEDS: NALTREXONE HCL 50 MG TABLET PO SCH (09:03)
[2019-10-07] MEDS: SOLIFENACIN SUCCINATE 5 MG TABLET PO SCH (09:03)
[2019-10-07] MEDS: THIAMINE HCL 100 MG TABLET PO SCH ×2 (09:03→16:26)
[2019-10-07 11:19] LABS: GLUCOMETER DEV NAME(LOC) BV2X.; GLUCOSE,POINT OF CARE 121 MG/DL (70-110)
[2019-10-07 16:12] VITALS: BP 151/78
[2019-10-07 16:36] LABS: GLUCOMETER DEV NAME(LOC) BV2X.; GLUCOSE,POINT OF CARE 130 MG/DL (70-110)
[2019-10-07] MEDS: LORazepam 2 MG TABLET PO PRN (17:18)
[2019-10-07 19:39] VITALS: BP 113/70
[2019-10-07 19:48] LABS: GLUCOMETER DEV NAME(LOC) BV2X.; GLUCOSE,POINT OF CARE 211 MG/DL (70-110)
[2019-10-07] MEDS: DIVALPROEX SODIUM 500 MG ER TABLET PO SCH (20:05)
[2019-10-07] MEDS: INSULIN GLARGINE,HUM.REC.ANLOG 100 UNITS/ML SQ SCH (21:14)
[2019-10-08 00:20] VITALS: BP 139/84
[2019-10-08 06:24] LABS: GLUCOMETER DEV NAME(LOC) BV2X.; GLUCOSE,POINT OF CARE 133 MG/DL (70-110)
[2019-10-08] MEDS: MetFORMIN HCL 500 MG TABLET PO SCH (06:41)
[2019-10-08] MEDS: ZIPRASIDONE HCL 60 MG CAPSULE PO SCH (06:41)
[2019-10-08] MEDS ORDERED: MAGOX PO (07:51)
[2019-10-08] MEDS ORDERED: INSLAN SQ (07:51)
[2019-10-08] MEDS ORDERED: LISI-661 PO (07:51)
[2019-10-08] MEDS ORDERED: ZIPR60CA2 PO (07:51)
[2019-10-08] MEDS ORDERED: DIVA500T52 PO (07:52)
[2019-10-08 08:09] VITALS: BP 127/96
[2019-10-08] MEDS: SOLIFENACIN SUCCINATE 5 MG TABLET PO SCH (09:19)
[2019-10-08] MEDS: FOLIC ACID 1 MG TABLET PO SCH (09:19)
[2019-10-08] MEDS: NALTREXONE HCL 50 MG TABLET PO SCH (09:19)
[2019-10-08] MEDS: THIAMINE HCL 100 MG TABLET PO SCH (09:19)
[2019-10-08] MEDS: MULTIVITAMINS WITH MINERALS, THERAPEUTIC TABLET PO SCH (09:19)
[2019-10-08] MEDS: AmLODIPine BESYLATE 5 MG TABLET PO SCH (09:19)
[2019-10-08] MEDS: MAGNESIUM OXIDE 400 MG TABLET PO SCH (09:19)
[2019-10-08] MEDS: LISINOPRIL 10 MG TABLET PO SCH (09:19)
[2019-10-22] MEDS ORDERED: ARIPiprazole ER SUSPENSION 400 MG PRE-FILLED DUAL CHAMBER SYRINGE IM SCH (09:00)
== END 2019-10-08 10:00 | disposition home or self-care (01) | DRG 885 ==
LOC: B2X 13:24
PROVIDERS: ADMIT Psychiatry & Neurology Psychiatry; ATTEND Psychiatry & Neurology Psychiatry
DX: F25.0 Schizoaffective disorder, bipolar type (principal); M62.82 Rhabdomyolysis; E11.9 Type 2 diabetes mellitus without complications; F41.9 Anxiety disorder, unspecified; I10 Essential (primary) hypertension; J44.9 Chronic obstructive pulmonary disease, unspecified; R32 Unspecified urinary incontinence; E83.42 Hypomagnesemia; K21.9 Gastro-esophageal reflux disease without esophagitis; Z83.3 Family history of diabetes mellitus
CPT/HCPCS: 83036; 83735; 84439; 84443; J1815; J2060

== ENCOUNTER 2019-11-21 17:57 | Inpatient (IN) | payer MEDICARE ==
[~2019-11-21] VITALS: Ht 157.5 cm; Wt 71.4 kg
[~2019-11-21 17:57] MED LIST changes: -FOLI1 PO; -LISI-660 PO; +LISI-661 PO; +MAGOX PO; -MULT-248 PO; -THIA100T67 PO; -ZIPR40CA2 PO; +ZIPR60CA2 PO
[2019-11-21 18:17] LABS: GLUCOSE,POINT OF CARE 118 MG/DL (70-110)
[2019-11-21] MEDS ORDERED: ALBUTEROL SULFATE 5 MG/ML 20 ML NEB SOLN [BULK] NEB ONE (21:30)
[2019-11-21] MEDS: MethylPREDNISolone SOD SUCC 125 MG/2 ML VIAL IVP ONE ×2 (21:30→22:07)
[2019-11-21] MEDS ORDERED: IPRATROPIUM BROMIDE 0.5 MG/2.5 ML NEB SOLUTION NEB ONE (21:30)
[2019-11-21 22:28] LABS: BASOPHILS % (AUTO) 0.5 % (0.0-2.0); EOSINOPHILS % (AUTO) 0.2 % (1.0-6.0); HEMATOCRIT 37.5 % (36-46); HEMOGLOBIN 12.8 g/dL (12.0-16.0); LYMPHOCYTES # (AUTO) 3.5 K/uL (1.0-4.8); LYMPHOCYTES % (AUTO) 19.6 % (22.0-44.0); MEAN CORPUSCULAR HGB CONC 34.1 G/dL (31.0-37.0); MEAN CORPUSCULAR VOLUME 91 fL (80-100); MONOCYTES # (AUTO) 1.2 K/uL (0.1-1.0); MONOCYTES % (AUTO) 6.7 % (2.0-9.0); PLATELET COUNT (AUTO) 337 K/uL (150-450); RED BLOOD CELL COUNT(AUTO) 4.13 MIL/uL (4.00-5.20)
[2019-11-21 22:34] LABS: ANION GAP 6 mmol/L (8-16); CALCIUM, TOTAL 9.1 mg/dL (8.8-10.5); CARBON DIOXIDE 30 mmol/L (22-29); CHLORIDE 101 mmol/L (98-107); CREATININE 0.73 mg/dL (0.60-1.30); GLOMERULAR FILTR. RATE CALC > 60 mL/min (>60); GLUCOSE,RANDOM 107 mg/dL (70-110); POTASSIUM 4.2 mmol/L (3.5-5.1); SODIUM SERUM 137 mmol/L (136-145)
[2019-11-21 22:42] LABS: INFLUENZA TYPE A NEGATIVE FOR TYPE A (NEGATIVE); INFLUENZA TYPE B NEGATIVE FOR TYPE B (NEGATIVE)
[2019-11-21 22:42] LABS: ALANINE AMINOTRANSFERASE 13 U/L (12-78); ALBUMIN 2.9 g/dL (3.4-5.0); ALKALINE PHOSPHATASE 96 U/L (46-116); ASPARTATE AMINOTRANSFERASE 11 U/L (15-37); BILIRUBIN,TOTAL 0.2 mg/dL (0.1-1.0); CREATINE KINASE, TOTAL ONLY 63 U/L (26-192); TOTAL PROTEIN, SERUM 7.2 g/dL (6.4-8.2)
[2019-11-21 22:52] LABS: UREA NITROGEN, BLOOD 8 mg/dL (7-18)
[2019-11-21 22:55] LABS: B-TYPE NATRIURETIC PEPTIDE 9 pg/mL (0-100)
[2019-11-21] MEDS ORDERED: AZITHROMYCIN 500 MG/NS 250 ML IV ONE (23:15)
[2019-11-22] MEDS ORDERED: IPRATROPIUM BROMIDE 0.5 MG/2.5 ML NEB SOLUTION NEB PRN
[2019-11-22] MEDS ORDERED: DEXTROSE 50%-WATER 25 GM/50 ML SYRINGE IVP PRN
[2019-11-22] MEDS ORDERED: ACETAMINOPHEN 325 MG TABLET PO PRN
[2019-11-22] MEDS ORDERED: INSULIN LISPRO 100 UNITS/ML SQ PRN
[2019-11-22] MEDS ORDERED: ALBUTEROL SULFATE 2.5 MG/0.5 ML NEB SOLUTION NEB PRN
[2019-11-22] MEDS: MethylPREDNISolone SOD SUCC 125 MG/2 ML VIAL IVP SCH ×2 (00:22→07:12)
[2019-11-22 07:59] VITALS: BP 132/79
[2019-11-22] MEDS ORDERED: DOCUSATE SODIUM 100 MG CAPSULE PO SCH (09:00)
== END 2019-11-22 04:21 | disposition left against medical advice (07) | DRG 192 ==
LOC: EMS 18:01 → 5S 11-22 04:21 → 5N 11-22 04:22
PROVIDERS: ADMIT Internal Medicine; ATTEND Internal Medicine
DX: J44.1 Chronic obstructive pulmonary disease with (acute) exacerbation (principal); E11.9 Type 2 diabetes mellitus without complications; F20.9 Schizophrenia, unspecified; I10 Essential (primary) hypertension; Z88.8 Allergy status to other drugs, medicaments and biological substances; Z53.29 Procedure and treatment not carried out because of patient's decision for other reasons
CPT/HCPCS: 87804; 93005; 94640; J0456; J2930

== ENCOUNTER 2020-01-16 10:55 | Inpatient (IN) | payer MEDICARE, MEDICAID ==
[~2020-01-16] VITALS: Ht 160 cm; Wt 71.2 kg
[2020-01-16 11:50] VITALS: BP 162/81
[2020-01-16] MEDS ORDERED: HydrOXYzine PAMOATE 50 MG CAPSULE PO PRN ×2 (13:00→14:30)
[2020-01-16] MEDS ORDERED: ZOLPIDEM TARTRATE 10 MG TABLET PO PRN (13:00)
[2020-01-16] MEDS ORDERED: PROMETHAZINE HCL 25 MG TABLET PO PRN ×2 (13:00→14:30)
[2020-01-16] MEDS ORDERED: LORazepam 2 MG TABLET PO PRN (13:00)
[2020-01-16] MEDS ORDERED: HALOPERIDOL DECANOATE 50 MG/ML VIAL IM ONE (13:00)
[2020-01-16] MEDS ORDERED: HALOPERIDOL 5 MG TABLET PO PRN (13:00)
[2020-01-16] MEDS ORDERED: GuaiFENesin/D-METHORPHAN [SUGAR-FREE] 200-20MG/10 ML SYRUP UDCUP PO PRN ×2 (13:00→14:30)
[2020-01-16] MEDS ORDERED: MAGNESIUM HYDROXIDE SUSPENSION 30 ML UDCUP PO PRN (14:30)
[2020-01-16] MEDS ORDERED: LOPERAMIDE HCL 2 MG CAPSULE PO PRN (14:30)
[2020-01-16] MEDS ORDERED: CYANOCOBALAMIN 1,000 MCG/ML VIAL IM ONE (14:30)
[2020-01-16] MEDS ORDERED: MAG HYDROX/AL HYDROX/SIMETH ES 30 ML SUSPENSION UDCUP PO PRN (14:30)
[2020-01-16 14:34] VITALS: BP 145/95
[2020-01-16] MEDS ORDERED: GLUCAGON,HUMAN RECOMBINANT 1 MG VIAL IM PRN (15:15)
[2020-01-16 16:38] LABS: GLUCOMETER DEV NAME(LOC) BV2X.; GLUCOSE,POINT OF CARE 130 MG/DL (70-110)
[2020-01-16 16:43] VITALS: BP 147/87
[2020-01-16] MEDS: THIAMINE HCL 100 MG TABLET PO SCH (17:39)
[2020-01-16] MEDS: MetFORMIN HCL 500 MG TABLET PO SCH (17:40)
[2020-01-16] MEDS: AmLODIPine BESYLATE 5 MG TABLET PO SCH (17:40)
[2020-01-16] MEDS: LISINOPRIL 10 MG TABLET PO SCH (17:40)
[2020-01-16 20:47] LABS: GLUCOMETER DEV NAME(LOC) BV2X.; GLUCOSE,POINT OF CARE 217 MG/DL (70-110)
[2020-01-16] MEDS: HALOPERIDOL 5 MG TABLET PO SCH (21:00)
[2020-01-16] MEDS ORDERED: THIAMINE HCL 100 MG TABLET PO SCH (21:00)
[2020-01-16] MEDS: DIVALPROEX SODIUM 500 MG ER TABLET PO SCH (21:50)
[2020-01-16] MEDS: INSULIN LISPRO 100 UNITS/ML SQ PRN (21:58)
[2020-01-16] MEDS: INSULIN GLARGINE,HUM.REC.ANLOG 100 UNITS/ML SQ SCH (21:58)
[2020-01-17 06:20] LABS: GLUCOMETER DEV NAME(LOC) BV2X.; GLUCOSE,POINT OF CARE 108 MG/DL (70-110)
[2020-01-17 06:29] VITALS: BP 139/69
[2020-01-17] MEDS: MetFORMIN HCL 500 MG TABLET PO SCH ×2 (07:03→16:37)
[2020-01-17 07:59] LABS: BASOPHILS % (AUTO) 0.6 % (0.0-2.0); EOSINOPHILS % (AUTO) 1.1 % (1.0-6.0); HEMATOCRIT 43.1 % (36-46); HEMOGLOBIN 14.4 g/dL (12.0-16.0); LYMPHOCYTES # (AUTO) 3.5 K/uL (1.0-4.8); LYMPHOCYTES % (AUTO) 41.5 % (22.0-44.0); MEAN CORPUSCULAR HEMOGLOBIN 30.7 pg (26.0-34.0); MEAN CORPUSCULAR HGB CONC 33.4 G/dL (31.0-37.0); MEAN CORPUSCULAR VOLUME 92 fL (80-100); MONOCYTES # (AUTO) 0.4 K/uL (0.1-1.0); MONOCYTES % (AUTO) 4.2 % (2.0-9.0); NEUTROPHILS # (AUTO) 4.4 K/uL (1.8-7.7); NEUTROPHILS % (AUTO) 52.6 % (40.0-70.0); PLATELET COUNT (AUTO) 312 K/uL (150-450); RED CELL DISTRIBUTION WIDTH 14.1 % (11.5-14.5)
[2020-01-17 08:14] VITALS: BP 153/89
[2020-01-17 08:15] LABS: ALANINE AMINOTRANSFERASE 20 U/L (12-78); ALKALINE PHOSPHATASE 97 U/L (46-116); ANION GAP 10 mmol/L (8-16); ASPARTATE AMINOTRANSFERASE 11 U/L (15-37); BILIRUBIN,TOTAL 0.4 mg/dL (0.1-1.0); CARBON DIOXIDE 26 mmol/L (22-29); CHLORIDE 104 mmol/L (98-107); CHOL/HDL RATIO 5.2 (3.9-5.7); CHOLESTEROL 197 mg/dL (131-200); CREATININE 0.74 mg/dL (0.60-1.30); GLOMERULAR FILTR. RATE CALC > 60 mL/min (>60); GLUCOSE,RANDOM 105 mg/dL (70-110); HDL CHOLESTEROL 38 mg/dL (40-60); LDL CHOL (CALC.) 138 mg/dL (0-130); POTASSIUM 3.6 mmol/L (3.5-5.1); SODIUM SERUM 140 mmol/L (136-145); TOTAL PROTEIN, SERUM 7.2 g/dL (6.4-8.2); TRIGLYCERIDES 105 mg/dL (15-150); UREA NITROGEN, BLOOD 14 mg/dL (7-18); VALPROIC ACID 75 mcg/mL (50-100)
[2020-01-17] MEDS ORDERED: FOLIC ACID 1 MG TABLET PO SCH (09:00)
[2020-01-17] MEDS ORDERED: MULTIVITAMINS WITH MINERALS, THERAPEUTIC TABLET PO SCH (09:00)
[2020-01-17] MEDS: SOLIFENACIN SUCCINATE 5 MG TABLET PO SCH (09:13)
[2020-01-17] MEDS: LISINOPRIL 10 MG TABLET PO SCH ×2 (09:13→16:37)
[2020-01-17] MEDS: NALTREXONE HCL 50 MG TABLET PO SCH (09:14)
[2020-01-17] MEDS: MULTIVITAMINS WITH MINERALS, THERAPEUTIC TABLET PO SCH (09:14)
[2020-01-17] MEDS: THIAMINE HCL 100 MG TABLET PO SCH ×2 (09:14→16:37)
[2020-01-17] MEDS: FOLIC ACID 1 MG TABLET PO SCH (09:14)
[2020-01-17] MEDS: AmLODIPine BESYLATE 5 MG TABLET PO SCH (09:18)
[2020-01-17] MEDS: INSULIN LISPRO 100 UNITS/ML SQ PRN ×2 (11:09→16:44)
[2020-01-17 11:22] LABS: GLUCOMETER DEV NAME(LOC) BV2X.; GLUCOSE,POINT OF CARE 172 MG/DL (70-110)
[2020-01-17 16:22] VITALS: BP 125/70
[2020-01-17] MEDS: TERBINAFINE HCL 1% 30 GM CREAM TP SCH (16:37)
[2020-01-17 16:48] LABS: GLUCOMETER DEV NAME(LOC) BV2X.; GLUCOSE,POINT OF CARE 173 MG/DL (70-110)
[2020-01-17 20:27] LABS: GLUCOMETER DEV NAME(LOC) BV2X.; GLUCOSE,POINT OF CARE 133 MG/DL (70-110)
[2020-01-17] MEDS: HALOPERIDOL 5 MG TABLET PO SCH (20:43)
[2020-01-17] MEDS: DIVALPROEX SODIUM 500 MG ER TABLET PO SCH (20:43)
[2020-01-17] MEDS: INSULIN GLARGINE,HUM.REC.ANLOG 100 UNITS/ML SQ SCH (20:48)
[2020-01-18 00:28] VITALS: BP 134/72
[2020-01-18] MEDS: MetFORMIN HCL 500 MG TABLET PO SCH ×2 (07:02→16:37)
[2020-01-18 07:07] LABS: GLUCOMETER DEV NAME(LOC) BV2X.; GLUCOSE,POINT OF CARE 122 MG/DL (70-110)
[2020-01-18 08:33] VITALS: BP 150/82
[2020-01-18] MEDS: FOLIC ACID 1 MG TABLET PO SCH (09:43)
[2020-01-18] MEDS: AmLODIPine BESYLATE 5 MG TABLET PO SCH (09:44)
[2020-01-18] MEDS: THIAMINE HCL 100 MG TABLET PO SCH ×2 (09:44→16:37)
[2020-01-18] MEDS: SOLIFENACIN SUCCINATE 5 MG TABLET PO SCH (09:44)
[2020-01-18] MEDS: NALTREXONE HCL 50 MG TABLET PO SCH (09:44)
[2020-01-18] MEDS: ARIPiprazole 5 MG TABLET PO SCH (09:44)
[2020-01-18] MEDS: MULTIVITAMINS WITH MINERALS, THERAPEUTIC TABLET PO SCH (09:44)
[2020-01-18] MEDS: LISINOPRIL 10 MG TABLET PO SCH ×2 (09:44→16:37)
[2020-01-18] MEDS: TERBINAFINE HCL 1% 30 GM CREAM TP SCH ×2 (09:45→16:43)
[2020-01-18 11:31] LABS: GLUCOMETER DEV NAME(LOC) BV2X.; GLUCOSE,POINT OF CARE 131 MG/DL (70-110)
[2020-01-18 16:24] VITALS: BP 144/69
[2020-01-18 16:24] LABS: GLUCOMETER DEV NAME(LOC) BV2X.; GLUCOSE,POINT OF CARE 178 MG/DL (70-110)
[2020-01-18] MEDS: INSULIN LISPRO 100 UNITS/ML SQ PRN (16:39)
[2020-01-18 20:20] LABS: GLUCOMETER DEV NAME(LOC) BV2X.; GLUCOSE,POINT OF CARE 117 MG/DL (70-110)
[2020-01-18] MEDS: DIVALPROEX SODIUM 500 MG ER TABLET PO SCH (20:35)
[2020-01-18] MEDS: HALOPERIDOL 5 MG TABLET PO SCH (20:35)
[2020-01-18] MEDS: INSULIN GLARGINE,HUM.REC.ANLOG 100 UNITS/ML SQ SCH (20:39)
[2020-01-19 00:44] VITALS: BP 144/92
[2020-01-19] MEDS: MetFORMIN HCL 500 MG TABLET PO SCH ×2 (06:06→16:24)
[2020-01-19 06:52] LABS: GLUCOMETER DEV NAME(LOC) BV2X.; GLUCOSE,POINT OF CARE 84 MG/DL (70-110)
[2020-01-19 08:36] VITALS: BP 150/74
[2020-01-19] MEDS: NALTREXONE HCL 50 MG TABLET PO SCH (09:12)
[2020-01-19] MEDS: THIAMINE HCL 100 MG TABLET PO SCH ×2 (09:13→16:24)
[2020-01-19] MEDS: LISINOPRIL 10 MG TABLET PO SCH ×2 (09:13→16:24)
[2020-01-19] MEDS: MULTIVITAMINS WITH MINERALS, THERAPEUTIC TABLET PO SCH (09:13)
[2020-01-19] MEDS: FOLIC ACID 1 MG TABLET PO SCH (09:13)
[2020-01-19] MEDS: SOLIFENACIN SUCCINATE 5 MG TABLET PO SCH (09:14)
[2020-01-19] MEDS: ARIPiprazole 5 MG TABLET PO SCH (09:30)
[2020-01-19] MEDS: AmLODIPine BESYLATE 5 MG TABLET PO SCH (09:30)
[2020-01-19] MEDS: TERBINAFINE HCL 1% 30 GM CREAM TP SCH ×2 (09:31→16:25)
[2020-01-19 11:09] LABS: GLUCOMETER DEV NAME(LOC) BV2X.; GLUCOSE,POINT OF CARE 88 MG/DL (70-110)
[2020-01-19] MEDS ORDERED: LOPERAMIDE HCL 2 MG CAPSULE PO PRN (14:30)
[2020-01-19 14:49] VITALS: BP 116/90
[2020-01-19] MEDS: ACETAMINOPHEN 325 MG TABLET PO PRN (16:24)
[2020-01-19 16:30] VITALS: BP 148/80
[2020-01-19] MEDS: INSULIN LISPRO 100 UNITS/ML SQ PRN (16:39)
[2020-01-19 16:47] LABS: GLUCOMETER DEV NAME(LOC) BV2X.; GLUCOSE,POINT OF CARE 143 MG/DL (70-110)
[2020-01-19] MEDS: DIVALPROEX SODIUM 500 MG ER TABLET PO SCH (20:53)
[2020-01-19] MEDS: HALOPERIDOL 10 MG TABLET PO SCH (20:54)
[2020-01-19] MEDS: INSULIN GLARGINE,HUM.REC.ANLOG 100 UNITS/ML SQ SCH (21:02)
[2020-01-19 21:23] LABS: GLUCOMETER DEV NAME(LOC) BV2X.; GLUCOSE,POINT OF CARE 97 MG/DL (70-110)
[2020-01-20 00:22] VITALS: BP 140/101
[2020-01-20] MEDS: ACETAMINOPHEN 325 MG TABLET PO PRN (00:23)
[2020-01-20 02:18] VITALS: BP 124/69
[2020-01-20] MEDS: MetFORMIN HCL 500 MG TABLET PO SCH ×2 (06:32→16:22)
[2020-01-20 06:44] LABS: GLUCOMETER DEV NAME(LOC) BV2X.; GLUCOSE,POINT OF CARE 79 MG/DL (70-110)
[2020-01-20] MEDS: FOLIC ACID 1 MG TABLET PO SCH (08:04)
[2020-01-20] MEDS: THIAMINE HCL 100 MG TABLET PO SCH ×2 (08:05→16:22)
[2020-01-20] MEDS: NALTREXONE HCL 50 MG TABLET PO SCH (08:05)
[2020-01-20] MEDS: LISINOPRIL 10 MG TABLET PO SCH ×2 (08:05→16:22)
[2020-01-20] MEDS: SOLIFENACIN SUCCINATE 5 MG TABLET PO SCH (08:05)
[2020-01-20] MEDS: AmLODIPine BESYLATE 5 MG TABLET PO SCH (08:05)
[2020-01-20] MEDS: MULTIVITAMINS WITH MINERALS, THERAPEUTIC TABLET PO SCH (08:08)
[2020-01-20 08:22] VITALS: BP 137/69
[2020-01-20] MEDS: TERBINAFINE HCL 1% 30 GM CREAM TP SCH ×2 (09:03→16:30)
[2020-01-20 11:57] LABS: GLUCOMETER DEV NAME(LOC) BV2X.; GLUCOSE,POINT OF CARE 86 MG/DL (70-110)
[2020-01-20 16:25] VITALS: BP 121/66
[2020-01-20] MEDS: INSULIN LISPRO 100 UNITS/ML SQ PRN (16:27)
[2020-01-20 16:31] LABS: GLUCOMETER DEV NAME(LOC) BV2X.; GLUCOSE,POINT OF CARE 169 MG/DL (70-110)
[2020-01-20] MEDS: NICOTINE 14 MG/24 HOUR PATCH TD SCH (19:58)
[2020-01-20] MEDS: HALOPERIDOL 10 MG TABLET PO SCH (20:00)
[2020-01-20] MEDS: DIVALPROEX SODIUM 500 MG ER TABLET PO SCH (20:00)
[2020-01-20] MEDS: INSULIN GLARGINE,HUM.REC.ANLOG 100 UNITS/ML SQ SCH ×2 (20:02→21:09)
[2020-01-20 20:13] LABS: GLUCOMETER DEV NAME(LOC) BV2X.; GLUCOSE,POINT OF CARE 93 MG/DL (70-110)
[2020-01-21 03:26] VITALS: BP 118/72
[2020-01-21 06:23] VITALS: BP 133/78
[2020-01-21] MEDS: MetFORMIN HCL 500 MG TABLET PO SCH ×2 (06:34→16:22)
[2020-01-21 06:43] LABS: GLUCOMETER DEV NAME(LOC) BV2X.; GLUCOSE,POINT OF CARE 65 MG/DL (70-110)
[2020-01-21 06:43] LABS: GLUCOMETER DEV NAME(LOC) BV2X.; GLUCOSE,POINT OF CARE 75 MG/DL (70-110)
[2020-01-21 08:23] VITALS: BP 143/76
[2020-01-21] MEDS: SOLIFENACIN SUCCINATE 5 MG TABLET PO SCH (08:34)
[2020-01-21] MEDS: MULTIVITAMINS WITH MINERALS, THERAPEUTIC TABLET PO SCH (08:34)
[2020-01-21] MEDS: FOLIC ACID 1 MG TABLET PO SCH (08:34)
[2020-01-21] MEDS: THIAMINE HCL 100 MG TABLET PO SCH ×2 (08:34→16:22)
[2020-01-21] MEDS: NALTREXONE HCL 50 MG TABLET PO SCH (08:34)
[2020-01-21] MEDS: LISINOPRIL 10 MG TABLET PO SCH ×2 (08:34→16:22)
[2020-01-21] MEDS: AmLODIPine BESYLATE 5 MG TABLET PO SCH (08:39)
[2020-01-21] MEDS: NICOTINE 14 MG/24 HOUR PATCH TD SCH (08:47)
[2020-01-21] MEDS: TERBINAFINE HCL 1% 30 GM CREAM TP SCH ×2 (09:14→17:13)
[2020-01-21 11:24] LABS: GLUCOMETER DEV NAME(LOC) BV2X.; GLUCOSE,POINT OF CARE 75 MG/DL (70-110)
[2020-01-21 16:29] VITALS: BP 149/84
[2020-01-21 16:40] LABS: GLUCOMETER DEV NAME(LOC) BV2X.; GLUCOSE,POINT OF CARE 121 MG/DL (70-110)
[2020-01-21] MEDS: DIVALPROEX SODIUM 500 MG ER TABLET PO SCH (20:45)
[2020-01-21 20:50] LABS: GLUCOMETER DEV NAME(LOC) BV2X.; GLUCOSE,POINT OF CARE 131 MG/DL (70-110)
[2020-01-21] MEDS: INSULIN GLARGINE,HUM.REC.ANLOG 100 UNITS/ML SQ SCH (20:52)
[2020-01-21] MEDS: HALOPERIDOL 10 MG TABLET PO SCH (21:02)
[2020-01-22 06:23] VITALS: BP 139/79
[2020-01-22] MEDS: MetFORMIN HCL 500 MG TABLET PO SCH (07:07)
[2020-01-22 07:09] LABS: GLUCOMETER DEV NAME(LOC) BV2X.; GLUCOSE,POINT OF CARE 107 MG/DL (70-110)
[2020-01-22] MEDS ORDERED: HALO10 PO (08:39)
[2020-01-22] MEDS ORDERED: INSLAN SQ (08:44)
[2020-01-22] MEDS: FOLIC ACID 1 MG TABLET PO SCH (09:00)
[2020-01-22] MEDS: NICOTINE 14 MG/24 HOUR PATCH TD SCH (09:00)
[2020-01-22] MEDS: THIAMINE HCL 100 MG TABLET PO SCH (09:00)
[2020-01-22] MEDS: SOLIFENACIN SUCCINATE 5 MG TABLET PO SCH (09:00)
[2020-01-22] MEDS: TERBINAFINE HCL 1% 30 GM CREAM TP SCH (09:00)
[2020-01-22] MEDS: MULTIVITAMINS WITH MINERALS, THERAPEUTIC TABLET PO SCH (09:00)
[2020-01-22] MEDS: AmLODIPine BESYLATE 5 MG TABLET PO SCH (09:00)
[2020-01-22] MEDS: LISINOPRIL 10 MG TABLET PO SCH (09:00)
[2020-01-22] MEDS: NALTREXONE HCL 50 MG TABLET PO SCH (09:00)
[2020-01-22 11:06] LABS: GLUCOMETER DEV NAME(LOC) BV2X.; GLUCOSE,POINT OF CARE 76 MG/DL (70-110)
[2020-01-23] MEDS ORDERED: HALOPERIDOL DECANOATE 50 MG/ML VIAL IM SCH (09:00)
== END 2020-01-22 13:11 | disposition home or self-care (01) | DRG 885 ==
LOC: B2X 14:19
PROVIDERS: ADMIT Psychiatry & Neurology Psychiatry; ATTEND Psychiatry & Neurology Psychiatry
DX: F25.0 Schizoaffective disorder, bipolar type (principal); E11.9 Type 2 diabetes mellitus without complications; F17.210 Nicotine dependence, cigarettes, uncomplicated; F41.9 Anxiety disorder, unspecified; I10 Essential (primary) hypertension; J44.9 Chronic obstructive pulmonary disease, unspecified; R32 Unspecified urinary incontinence; Z79.4 Long term (current) use of insulin; Z79.899 Other long term (current) drug therapy; Z91.19 Patient's noncompliance with other medical treatment and regimen
CPT/HCPCS: 83036; J1631; J1815; J3420

== ENCOUNTER 2020-06-18 14:49 | Emergency (ER) | payer MEDICARE, SELFPAY ==
[~2020-06-18] VITALS: Ht 162.6 cm; Wt 72.7 kg
[~2020-06-18 14:49] MED LIST changes: +AMLO-257 PO; -AMLO5TAB9 PO; +DIVA-80 PO; -DIVA500T52 PO; +HALO10 PO; -MAGOX PO; -ZIPR60CA2 PO
[2020-06-18] MEDS ORDERED: DiphenhydrAMINE HCL 50 MG/ML VIAL IVP ONE (15:30)
[2020-06-18] MEDS ORDERED: METOCLOPRAMIDE HCL 5 MG/ML 2 ML VIAL IVP ONE (15:30)
[2020-06-18] MEDS ORDERED: ACETAMINOPHEN 500 MG TABLET PO ONE (15:30)
[2020-06-18] MEDS ORDERED: SODIUM CHLORIDE 0.9% 500 ML IV ONE (15:30)
[2020-06-18] MEDS ORDERED: 0.9% SODIUM CHLORIDE 10 ML SYRINGE IVP PRN (15:45)
[2020-06-18 16:17] LABS: BASOPHILS % (AUTO) 0.5 % (0.0-2.0); EOSINOPHILS % (AUTO) 0.3 % (1.0-6.0); HEMATOCRIT 41.1 % (36-46); HEMOGLOBIN 13.6 g/dL (12.0-16.0); LYMPHOCYTES # (AUTO) 1.8 K/uL (1.0-4.8); LYMPHOCYTES % (AUTO) 9.8 % (22.0-44.0); MEAN CORPUSCULAR HEMOGLOBIN 30.2 pg (26.0-34.0); MEAN CORPUSCULAR HGB CONC 33.2 G/dL (31.0-37.0); MEAN CORPUSCULAR VOLUME 91 fL (80-100); MONOCYTES # (AUTO) 0.7 K/uL (0.1-1.0); MONOCYTES % (AUTO) 3.7 % (2.0-9.0); NEUTROPHILS # (AUTO) 15.7 K/uL (1.8-7.7); NEUTROPHILS % (AUTO) 85.7 % (40.0-70.0); PLATELET COUNT (AUTO) 431 K/uL (150-450); RED BLOOD CELL COUNT(AUTO) 4.51 MIL/uL (4.00-5.20); RED CELL DISTRIBUTION WIDTH 13.1 % (11.5-14.5)
[2020-06-18 16:31] LABS: D-DIMER 0.97 mg/L FEU (0.00-0.50); PROTHROMBIN TIME 10.4 SEC (9.4-11.6)
[2020-06-18 16:34] LABS: LACTIC ACID 1.6 mmol/L (0.4-2.0)
[2020-06-18 16:49] LABS: B-TYPE NATRIURETIC PEPTIDE 27 pg/mL (0-100)
[2020-06-18 16:55] LABS: ANION GAP 10 mmol/L (8-16); CALCIUM, TOTAL 9.3 mg/dL (8.8-10.5); CARBON DIOXIDE 27 mmol/L (22-29); CHLORIDE 99 mmol/L (98-107); CREATININE 0.87 mg/dL (0.60-1.30); GLOMERULAR FILTR. RATE CALC > 60 mL/min (>60); GLUCOSE,RANDOM 204 mg/dL (70-110); POTASSIUM 3.9 mmol/L (3.5-5.1); SODIUM SERUM 136 mmol/L (136-145); UREA NITROGEN, BLOOD 9 mg/dL (7-18)
[2020-06-18] MEDS ORDERED: SODIUM CHLORIDE 0.9% 1,000 ML IV ONE (17:00)
[2020-06-18] MEDS ORDERED: IOVERSOL 350 MG/ML 100 ML VIAL ONE (17:01)
[2020-06-18] MEDS ORDERED: SODIUM CHLORIDE 0.9% 100 ML ONE (17:01)
[2020-06-18 17:06] LABS: ALANINE AMINOTRANSFERASE 23 U/L (12-78); ALKALINE PHOSPHATASE 103 U/L (46-116); ASPARTATE AMINOTRANSFERASE 12 U/L (15-37); BILIRUBIN,TOTAL 0.4 mg/dL (0.1-1.0); CREATINE KINASE, TOTAL ONLY 42 U/L (26-192); HCG,QUANTITATIVE 1 mIU/mL (0-6); TOTAL PROTEIN, SERUM 8.2 g/dL (6.4-8.2)
[2020-06-18 17:50] LABS: INFLUENZA TYPE A NEGATIVE FOR TYPE A (NEGATIVE); INFLUENZA TYPE B NEGATIVE FOR TYPE B (NEGATIVE)
[2020-06-18] MEDS ORDERED: AZITHROMYCIN 500 MG TABLET PO ONE (18:00)
[2020-06-18 19:13] LABS: APPEARANCE,URINE CLEAR (CLEAR); BILIRUBIN,URINE NEGATIVE (NEGATIVE); GLUCOSE, URINE (UA) NEGATIVE (NEGATIVE); KETONES,URINE NEGATIVE (NEGATIVE); LEUKOCYTE ESTERASE ,URINE NEGATIVE (NEGATIVE); NITRATE,URINE NEGATIVE (NEGATIVE); OCCULT BLOOD,URINE TRACE (NEGATIVE); PROTEIN,URINE NEGATIVE (NEGATIVE); UROBILINOGEN,URINE 0.2 mg/dL (<=1.0)
[2020-06-18 19:23] LABS: BACTERIA,URINE None Seen /HPF (None Seen); RBC,URINE 0-2 /HPF (0-2); SQUAMOUS EPITHELIAL CELL,UR Few /LPF (None Seen); WBC,URINE None Seen /HPF (0-5)
[2020-06-18 19:45] VITALS: BP 146/49
== END 2020-06-18 20:48 | disposition home or self-care (01) ==
LOC: EMS 14:51
DX: B34.9 Viral infection, unspecified (principal); G43.909 Migraine, unspecified, not intractable, without status migrainosus; R50.9 Fever, unspecified; R05 Cough; Z20.828 Contact with and (suspected) exposure to other viral communicable diseases
CPT/HCPCS: 36415; 71045; 71275; 80053; 81001; 82550; 83605; 83880; 84145; 84484; 84702; 85025; 85379; 85610; 87040; 87804; 93005; 96361; 96374; 96375; 99285; J1200; J2765; J7030; J7040; J7050; Q9967; U0003

== ENCOUNTER → 2020-07-06 | Outpatient (CLI) | payer MEDICARE | END | disposition home or self-care (01) | LOC: LABPV 13:12 | PROVIDERS: ATTEND Psychiatry & Neurology Psychiatry | DX: F25.0 Schizoaffective disorder, bipolar type (principal) ==

== ENCOUNTER 2021-10-12 17:42 | Emergency (ER) | payer MEDICARE, SELFPAY ==
[~2021-10-12] VITALS: Ht 160 cm; Wt 66.8 kg
[~2021-10-12 17:42] MED LIST changes: +ARIP15TA27 PO; +ARIP400S3 IM; +ATOR10TA84 PO; -HALO10 PO; -INSLAN SQ; -LISI-661 PO; +LISI-893 PO; +MELA5TAB40 PO; +METF-1211 PO; -METF-960 PO; -NALT50TA PO; +OMEG-135 PO
[2021-10-12] MEDS ORDERED: LORazepam 1 MG TABLET PO ONE (19:00)
[2021-10-12 19:30] VITALS: BP 133/72
== END 2021-10-12 19:39 | disposition home or self-care (01) ==
LOC: EMS 17:45
DX: F41.9 Anxiety disorder, unspecified (principal); F20.9 Schizophrenia, unspecified
CPT/HCPCS: 99283

== ENCOUNTER 2021-11-02 08:54 | Inpatient (IN) | payer MEDICARE ==
[~2021-11-02] VITALS: Ht 152.4 cm; Wt 71.8 kg
[2021-11-02 09:48] LABS: BASOPHILS % (AUTO) 0.7 % (0.0-2.0); EOSINOPHILS % (AUTO) 2.8 % (1.0-6.0); HEMATOCRIT 41.6 % (36-46); LYMPHOCYTES # (AUTO) 2.9 K/uL (1.0-4.8); LYMPHOCYTES % (AUTO) 24.8 % (22.0-44.0); MEAN CORPUSCULAR HEMOGLOBIN 30.8 pg (26.0-34.0); MEAN CORPUSCULAR HGB CONC 33.7 G/dL (31.0-37.0); MEAN CORPUSCULAR VOLUME 91 fL (80-100); MONOCYTES # (AUTO) 0.8 K/uL (0.1-1.0); MONOCYTES % (AUTO) 7.2 % (2.0-9.0); NEUTROPHILS # (AUTO) 7.4 K/uL (1.8-7.7); NEUTROPHILS % (AUTO) 64.5 % (40.0-70.0); PLATELET COUNT (AUTO) 316 K/uL (150-450); RED BLOOD CELL COUNT(AUTO) 4.55 MIL/uL (4.00-5.20); RED CELL DISTRIBUTION WIDTH 14.3 % (11.5-14.5)
[2021-11-02 10:13] LABS: ANION GAP 7 mmol/L (8-16); CALCIUM, TOTAL 9.5 mg/dL (8.8-10.5); CARBON DIOXIDE 31 mmol/L (22-29); CHLORIDE 97 mmol/L (98-107); CREATININE 0.89 mg/dL (0.60-1.30); GLOMERULAR FILTR. RATE CALC > 60 mL/min (>60); GLUCOSE,RANDOM 299 mg/dL (70-110); POTASSIUM 4.2 mmol/L (3.5-5.1); SODIUM SERUM 135 mmol/L (136-145); UREA NITROGEN, BLOOD 18 mg/dL (7-18)
[2021-11-02 10:18] LABS: ALANINE AMINOTRANSFERASE 17 U/L (12-78); ALBUMIN 3.5 g/dL (3.4-5.0); ALKALINE PHOSPHATASE 111 U/L (46-116); ASPARTATE AMINOTRANSFERASE 16 U/L (15-37); BILIRUBIN,TOTAL 0.3 mg/dL (0.1-1.0); TOTAL PROTEIN, SERUM 9.1 g/dL (6.4-8.2)
[2021-11-02] MEDS ORDERED: HydrOXYzine PAMOATE 50 MG CAPSULE PO PRN (12:00)
[2021-11-02] MEDS ORDERED: GuaiFENesin/D-METHORPHAN [SUGAR-FREE] 200-20MG/10 ML SYRUP UDCUP PO PRN (12:00)
[2021-11-02] MEDS ORDERED: OLANZapine 5 MG RAPDIS TABLET PO PRN (12:00)
[2021-11-02] MEDS ORDERED: PROMETHAZINE HCL 25 MG TABLET PO PRN (12:00)
[2021-11-02 13:27] LABS: COVID AG,FIA SOURCE NASOPHARYNGEAL
[2021-11-02 16:17] VITALS: BP 168/90
[2021-11-02 16:41] LABS: GLUCOMETER DEV NAME(LOC) BV2X.2; GLUCOSE,POINT OF CARE 331 MG/DL (70-110)
[2021-11-02] MEDS ORDERED: GLUCAGON,HUMAN RECOMBINANT 1 MG VIAL IM PRN (16:45)
[2021-11-02] MEDS: INSULIN LISPRO 100 UNITS/ML SQ PRN (17:11)
[2021-11-02] MEDS ORDERED: -PHARMACY VACCINE NOTE- MISC ONE ×2 (17:30→17:45)
[2021-11-02] MEDS ORDERED: INFLUENZA VIRUS VACCINE QVS 2021-22 (6MO+)/PF 60 MCG/0.5 ML SYRINGE IM. ONE (17:30)
[2021-11-02] MEDS: AmLODIPine BESYLATE 5 MG TABLET PO SCH (17:52)
[2021-11-02] MEDS: MetFORMIN HCL 500 MG TABLET PO SCH (17:53)
[2021-11-02] MEDS: LISINOPRIL 10 MG TABLET PO SCH (17:53)
[2021-11-02] MEDS: THIAMINE 100 MG TABLET PO SCH (17:57)
[2021-11-02] MEDS: DIVALPROEX SODIUM 500 MG ER TABLET PO SCH (20:22)
[2021-11-02] MEDS: ATORVASTATIN CALCIUM 10 MG TABLET PO SCH (20:22)
[2021-11-02] MEDS: MELATONIN 5 MG TABLET PO SCH (20:22)
[2021-11-02] MEDS ORDERED: INSULIN GLARGINE,HUM.REC.ANLOG 100 UNITS/ML SQ SCH (21:00)
[2021-11-02 21:01] LABS: GLUCOMETER DEV NAME(LOC) BV2X.2; GLUCOSE,POINT OF CARE 278 MG/DL (70-110)
[2021-11-03 06:17] LABS: GLUCOMETER DEV NAME(LOC) BV2X.2; GLUCOSE,POINT OF CARE 211 MG/DL (70-110)
[2021-11-03] MEDS: MetFORMIN HCL 500 MG TABLET PO SCH ×2 (06:39→16:23)
[2021-11-03] MEDS: INSULIN LISPRO 100 UNITS/ML SQ PRN ×3 (06:40→16:36)
[2021-11-03 06:41] VITALS: BP 141/75
[2021-11-03 07:35] LABS: HEMOGLOBIN A1C 9.4 % (3.8-5.6)
[2021-11-03 07:50] LABS: FREE T4 (FREE THYROXINE) 1.6 ng/dL (0.76-1.46); THYROID STIMULATING HORMONE 0.81 uIU/mL (0.36-3.74)
[2021-11-03 08:26] VITALS: BP 156/69
[2021-11-03] MEDS: THIAMINE 100 MG TABLET PO SCH ×2 (08:56→16:23)
[2021-11-03] MEDS: LISINOPRIL 10 MG TABLET PO SCH ×2 (08:56→16:23)
[2021-11-03] MEDS: OMEGA-3/DHA/EPA/FISH OIL 1,000 MG CAPSULE PO SCH (08:56)
[2021-11-03] MEDS: MULTIVITAMINS WITH MINERALS, THERAPEUTIC TABLET PO SCH (08:56)
[2021-11-03] MEDS: ARIPiprazole 15 MG TABLET PO SCH (08:56)
[2021-11-03] MEDS: NALTREXONE HCL 50 MG TABLET PO SCH (08:57)
[2021-11-03] MEDS: FOLIC ACID 1 MG TABLET PO SCH (08:57)
[2021-11-03] MEDS: AmLODIPine BESYLATE 5 MG TABLET PO SCH (08:57)
[2021-11-03] MEDS: NICOTINE 21 MG/24 HOUR PATCH TD SCH (08:58)
[2021-11-03] MEDS: LORazepam 2 MG TABLET PO PRN (08:58)
[2021-11-03] MEDS: SOLIFENACIN SUCCINATE 5 MG TABLET PO SCH (09:34)
[2021-11-03 11:36] LABS: GLUCOMETER DEV NAME(LOC) BV2X.2; GLUCOSE,POINT OF CARE 234 MG/DL (70-110)
[2021-11-03] MEDS ORDERED: ARIPiprazole ER SUSPENSION 400 MG PRE-FILLED DUAL CHAMBER SYRINGE IM ONE (14:45)
[2021-11-03 16:46] LABS: GLUCOMETER DEV NAME(LOC) BV2X.2; GLUCOSE,POINT OF CARE 169 MG/DL (70-110)
[2021-11-03 18:41] VITALS: BP 154/74
[2021-11-03] MEDS: DIVALPROEX SODIUM 500 MG ER TABLET PO SCH (20:44)
[2021-11-03] MEDS: MELATONIN 5 MG TABLET PO SCH (20:44)
[2021-11-03] MEDS: ATORVASTATIN CALCIUM 10 MG TABLET PO SCH (20:45)
[2021-11-03] MEDS: INSULIN GLARGINE,HUM.REC.ANLOG 100 UNITS/ML SQ SCH (20:55)
[2021-11-03 21:06] LABS: GLUCOMETER DEV NAME(LOC) BV2X.2; GLUCOSE,POINT OF CARE 131 MG/DL (70-110)
[2021-11-04 06:16] LABS: GLUCOMETER DEV NAME(LOC) BV2X.2; GLUCOSE,POINT OF CARE 264 MG/DL (70-110)
[2021-11-04] MEDS: MetFORMIN HCL 500 MG TABLET PO SCH ×2 (06:25→16:42)
[2021-11-04] MEDS: INSULIN LISPRO 100 UNITS/ML SQ PRN ×3 (06:26→16:45)
[2021-11-04 06:40] VITALS: BP_SYST 138; BP_SYST 150; BP_DIAS 72; BP_DIAS 74
[2021-11-04] MEDS: OMEGA-3/DHA/EPA/FISH OIL 1,000 MG CAPSULE PO SCH (08:35)
[2021-11-04] MEDS: THIAMINE 100 MG TABLET PO SCH ×2 (08:35→16:42)
[2021-11-04] MEDS: LISINOPRIL 20 MG TABLET PO SCH (08:35)
[2021-11-04] MEDS: FOLIC ACID 1 MG TABLET PO SCH (08:35)
[2021-11-04] MEDS: MULTIVITAMINS WITH MINERALS, THERAPEUTIC TABLET PO SCH (08:35)
[2021-11-04] MEDS: NALTREXONE HCL 50 MG TABLET PO SCH (08:37)
[2021-11-04] MEDS: LORazepam 2 MG TABLET PO PRN (08:37)
[2021-11-04] MEDS: SOLIFENACIN SUCCINATE 5 MG TABLET PO SCH (08:38)
[2021-11-04] MEDS: NICOTINE 21 MG/24 HOUR PATCH TD SCH (08:38)
[2021-11-04 08:51] VITALS: BP 135/74
[2021-11-04] MEDS: AmLODIPine BESYLATE 5 MG TABLET PO SCH (08:54)
[2021-11-04] MEDS: ARIPiprazole 15 MG TABLET PO SCH (08:54)
[2021-11-04 11:26] LABS: GLUCOMETER DEV NAME(LOC) BV2X.2; GLUCOSE,POINT OF CARE 221 MG/DL (70-110)
[2021-11-04 16:50] VITALS: BP 130/72
[2021-11-04 17:22] LABS: GLUCOMETER DEV NAME(LOC) BV2S.; GLUCOSE,POINT OF CARE 205 MG/DL (70-110)
[2021-11-04] MEDS: DIVALPROEX SODIUM 500 MG ER TABLET PO SCH (20:22)
[2021-11-04] MEDS: MELATONIN 5 MG TABLET PO SCH (20:22)
[2021-11-04] MEDS: ATORVASTATIN CALCIUM 10 MG TABLET PO SCH (20:22)
[2021-11-04] MEDS: INSULIN GLARGINE,HUM.REC.ANLOG 100 UNITS/ML SQ SCH (20:28)
[2021-11-04 21:21] LABS: GLUCOMETER DEV NAME(LOC) BV2S.; GLUCOSE,POINT OF CARE 123 MG/DL (70-110)
[2021-11-05] MEDS: ZOLPIDEM TARTRATE 10 MG TABLET PO PRN (01:24)
[2021-11-05 06:36] VITALS: BP 134/80
[2021-11-05] MEDS: MetFORMIN HCL 500 MG TABLET PO SCH ×2 (06:44→16:34)
[2021-11-05 06:50] LABS: GLUCOMETER DEV NAME(LOC) BV2X.2; GLUCOSE,POINT OF CARE 98 MG/DL (70-110)
[2021-11-05 07:29] LABS: AMPHET/METH SCREEN,URINE POSITIVE (NEGATIVE); BARBITURATE SCREEN, URINE NEGATIVE (NEGATIVE); BENZODIAZEPINES SCREEN,URINE NEGATIVE (NEGATIVE); CANNABINOID SCREEN,URINE NEGATIVE (NEGATIVE); COCAINE SCREEN,URINE NEGATIVE (NEGATIVE); METHADONE SCREEN, URINE NEGATIVE (NEGATIVE); OPIATE SCREEN,URINE NEGATIVE (NEGATIVE)
[2021-11-05 07:31] LABS: PHENCYCLIDINE SCREEN,URINE NEGATIVE (NEGATIVE)
[2021-11-05 08:00] VITALS: BP 137/78
[2021-11-05] MEDS: THIAMINE 100 MG TABLET PO SCH ×2 (09:24→16:35)
[2021-11-05] MEDS: ARIPiprazole 15 MG TABLET PO SCH (09:24)
[2021-11-05] MEDS: LISINOPRIL 20 MG TABLET PO SCH (09:24)
[2021-11-05] MEDS: SOLIFENACIN SUCCINATE 5 MG TABLET PO SCH (09:25)
[2021-11-05] MEDS: AmLODIPine BESYLATE 5 MG TABLET PO SCH (09:25)
[2021-11-05] MEDS: OMEGA-3/DHA/EPA/FISH OIL 1,000 MG CAPSULE PO SCH (09:25)
[2021-11-05] MEDS: NALTREXONE HCL 50 MG TABLET PO SCH (09:25)
[2021-11-05] MEDS: FOLIC ACID 1 MG TABLET PO SCH (09:25)
[2021-11-05] MEDS: MULTIVITAMINS WITH MINERALS, THERAPEUTIC TABLET PO SCH (09:25)
[2021-11-05] MEDS: NICOTINE 21 MG/24 HOUR PATCH TD SCH (09:33)
[2021-11-05] MEDS: INSULIN LISPRO 100 UNITS/ML SQ PRN ×3 (11:29→20:53)
[2021-11-05 11:46] LABS: GLUCOMETER DEV NAME(LOC) BV2X.2; GLUCOSE,POINT OF CARE 192 MG/DL (70-110)
[2021-11-05 16:11] VITALS: BP 155/82
[2021-11-05 16:21] LABS: GLUCOMETER DEV NAME(LOC) BV2X.2; GLUCOSE,POINT OF CARE 196 MG/DL (70-110)
[2021-11-05 20:21] LABS: GLUCOMETER DEV NAME(LOC) BV2X.2; GLUCOSE,POINT OF CARE 254 MG/DL (70-110)
[2021-11-05] MEDS: MELATONIN 5 MG TABLET PO SCH (20:48)
[2021-11-05] MEDS: ATORVASTATIN CALCIUM 10 MG TABLET PO SCH (20:48)
[2021-11-05] MEDS: DIVALPROEX SODIUM 500 MG ER TABLET PO SCH (20:49)
[2021-11-05] MEDS: INSULIN GLARGINE,HUM.REC.ANLOG 100 UNITS/ML SQ SCH (20:53)
[2021-11-06 00:16] VITALS: BP 121/68
[2021-11-06 06:41] LABS: GLUCOMETER DEV NAME(LOC) BV2X.2; GLUCOSE,POINT OF CARE 217 MG/DL (70-110)
[2021-11-06] MEDS: INSULIN LISPRO 100 UNITS/ML SQ PRN ×4 (06:44→20:52)
[2021-11-06] MEDS: MetFORMIN HCL 500 MG TABLET PO SCH ×2 (06:46→16:03)
[2021-11-06] MEDS: FOLIC ACID 1 MG TABLET PO SCH (08:31)
[2021-11-06] MEDS: MULTIVITAMINS WITH MINERALS, THERAPEUTIC TABLET PO SCH (08:31)
[2021-11-06] MEDS: OMEGA-3/DHA/EPA/FISH OIL 1,000 MG CAPSULE PO SCH (08:31)
[2021-11-06] MEDS: LISINOPRIL 20 MG TABLET PO SCH (08:31)
[2021-11-06] MEDS: SOLIFENACIN SUCCINATE 5 MG TABLET PO SCH (08:31)
[2021-11-06] MEDS: ARIPiprazole 15 MG TABLET PO SCH (08:31)
[2021-11-06] MEDS: THIAMINE 100 MG TABLET PO SCH ×2 (08:32→16:03)
[2021-11-06] MEDS: NALTREXONE HCL 50 MG TABLET PO SCH (08:32)
[2021-11-06] MEDS: AmLODIPine BESYLATE 5 MG TABLET PO SCH (08:32)
[2021-11-06] MEDS: NICOTINE 21 MG/24 HOUR PATCH TD SCH (08:33)
[2021-11-06 08:47] VITALS: BP 143/70
[2021-11-06 11:31] LABS: GLUCOMETER DEV NAME(LOC) BV2X.2; GLUCOSE,POINT OF CARE 157 MG/DL (70-110)
[2021-11-06] MEDS: LORazepam 0.5 MG TABLET PO PRN (12:25)
[2021-11-06 16:44] VITALS: BP 131/61
[2021-11-06 16:46] LABS: GLUCOMETER DEV NAME(LOC) BV2X.2; GLUCOSE,POINT OF CARE 227 MG/DL (70-110)
[2021-11-06] MEDS: MELATONIN 5 MG TABLET PO SCH (20:15)
[2021-11-06] MEDS: ATORVASTATIN CALCIUM 10 MG TABLET PO SCH (20:15)
[2021-11-06] MEDS: DIVALPROEX SODIUM 500 MG ER TABLET PO SCH (20:15)
[2021-11-06 20:41] LABS: GLUCOMETER DEV NAME(LOC) BV2X.2; GLUCOSE,POINT OF CARE 298 MG/DL (70-110)
[2021-11-06] MEDS: INSULIN GLARGINE,HUM.REC.ANLOG 100 UNITS/ML SQ SCH (20:52)
[2021-11-07 00:15] VITALS: BP 134/66
[2021-11-07 03:14] VITALS: BP 132/68
[2021-11-07] MEDS: LORazepam 0.5 MG TABLET PO PRN ×2 (03:19→15:23)
[2021-11-07] MEDS: ZOLPIDEM TARTRATE 10 MG TABLET PO PRN (03:19)
[2021-11-07] MEDS: INSULIN LISPRO 100 UNITS/ML SQ PRN ×4 (06:29→20:28)
[2021-11-07] MEDS: MetFORMIN HCL 500 MG TABLET PO SCH ×2 (06:30→16:23)
[2021-11-07 06:37] LABS: GLUCOMETER DEV NAME(LOC) BV2X.2; GLUCOSE,POINT OF CARE 249 MG/DL (70-110)
[2021-11-07 07:32] LABS: BASOPHILS % (AUTO) 0.7 % (0.0-2.0); EOSINOPHILS % (AUTO) 4.2 % (1.0-6.0); HEMATOCRIT 37.7 % (36-46); HEMOGLOBIN 13.1 g/dL (12.0-16.0); LYMPHOCYTES # (AUTO) 2.9 K/uL (1.0-4.8); LYMPHOCYTES % (AUTO) 41.6 % (22.0-44.0); MEAN CORPUSCULAR HEMOGLOBIN 31.5 pg (26.0-34.0); MEAN CORPUSCULAR HGB CONC 34.8 G/dL (31.0-37.0); MEAN CORPUSCULAR VOLUME 91 fL (80-100); MONOCYTES # (AUTO) 0.4 K/uL (0.1-1.0); NEUTROPHILS # (AUTO) 3.4 K/uL (1.8-7.7); NEUTROPHILS % (AUTO) 48.5 % (40.0-70.0); PLATELET COUNT (AUTO) 254 K/uL (150-450); RED BLOOD CELL COUNT(AUTO) 4.16 MIL/uL (4.00-5.20); RED CELL DISTRIBUTION WIDTH 14.1 % (11.5-14.5)
[2021-11-07 07:56] LABS: COVID AG,FIA SOURCE NASOPHARYNGEAL
[2021-11-07 08:10] VITALS: BP 147/74
[2021-11-07] MEDS: FOLIC ACID 1 MG TABLET PO SCH (08:54)
[2021-11-07] MEDS: MULTIVITAMINS WITH MINERALS, THERAPEUTIC TABLET PO SCH (08:54)
[2021-11-07] MEDS: ARIPiprazole 15 MG TABLET PO SCH (08:54)
[2021-11-07] MEDS: LISINOPRIL 20 MG TABLET PO SCH (08:54)
[2021-11-07] MEDS: THIAMINE 100 MG TABLET PO SCH ×2 (08:54→16:23)
[2021-11-07] MEDS: OMEGA-3/DHA/EPA/FISH OIL 1,000 MG CAPSULE PO SCH (08:54)
[2021-11-07] MEDS: NICOTINE 21 MG/24 HOUR PATCH TD SCH (08:55)
[2021-11-07] MEDS: NALTREXONE HCL 50 MG TABLET PO SCH (08:55)
[2021-11-07] MEDS: SOLIFENACIN SUCCINATE 5 MG TABLET PO SCH (08:55)
[2021-11-07] MEDS: AmLODIPine BESYLATE 5 MG TABLET PO SCH (08:56)
[2021-11-07 11:21] LABS: GLUCOMETER DEV NAME(LOC) BV2X.2; GLUCOSE,POINT OF CARE 150 MG/DL (70-110)
[2021-11-07] MEDS ORDERED: QUEtiapine FUMARATE 100 MG TABLET PO PRN (14:30)
[2021-11-07 16:25] VITALS: BP 135/72
[2021-11-07 16:51] LABS: GLUCOMETER DEV NAME(LOC) BV2X.2; GLUCOSE,POINT OF CARE 327 MG/DL (70-110)
[2021-11-07] MEDS: DIVALPROEX SODIUM 500 MG ER TABLET PO SCH (20:25)
[2021-11-07] MEDS: ATORVASTATIN CALCIUM 10 MG TABLET PO SCH (20:25)
[2021-11-07] MEDS: MELATONIN 5 MG TABLET PO SCH (20:26)
[2021-11-07] MEDS: INSULIN GLARGINE,HUM.REC.ANLOG 100 UNITS/ML SQ SCH (20:29)
[2021-11-07 20:31] LABS: GLUCOMETER DEV NAME(LOC) BV2X.2; GLUCOSE,POINT OF CARE 244 MG/DL (70-110)
[2021-11-07] MEDS ORDERED: QUEtiapine FUMARATE 200 MG TABLET PO SCH (21:00)
[2021-11-08 05:13] VITALS: BP 130/60
[2021-11-08 06:26] LABS: GLUCOMETER DEV NAME(LOC) BV2X.2; GLUCOSE,POINT OF CARE 194 MG/DL (70-110)
[2021-11-08] MEDS: INSULIN LISPRO 100 UNITS/ML SQ PRN ×4 (06:33→20:16)
[2021-11-08] MEDS: MetFORMIN HCL 500 MG TABLET PO SCH ×2 (06:33→16:24)
[2021-11-08 08:17] VITALS: BP 170/74
[2021-11-08] MEDS: AmLODIPine BESYLATE 5 MG TABLET PO SCH (09:23)
[2021-11-08] MEDS: NICOTINE 21 MG/24 HOUR PATCH TD SCH (09:23)
[2021-11-08] MEDS: NALTREXONE HCL 50 MG TABLET PO SCH (09:23)
[2021-11-08] MEDS: FOLIC ACID 1 MG TABLET PO SCH (09:23)
[2021-11-08] MEDS: OMEGA-3/DHA/EPA/FISH OIL 1,000 MG CAPSULE PO SCH (09:23)
[2021-11-08] MEDS: THIAMINE 100 MG TABLET PO SCH ×2 (09:23→16:12)
[2021-11-08] MEDS: MULTIVITAMINS WITH MINERALS, THERAPEUTIC TABLET PO SCH (09:24)
[2021-11-08] MEDS: ARIPiprazole 15 MG TABLET PO SCH (09:24)
[2021-11-08] MEDS: LISINOPRIL 20 MG TABLET PO SCH (09:24)
[2021-11-08] MEDS: SOLIFENACIN SUCCINATE 5 MG TABLET PO SCH (09:24)
[2021-11-08 11:36] LABS: GLUCOMETER DEV NAME(LOC) BV2X.2; GLUCOSE,POINT OF CARE 292 MG/DL (70-110)
[2021-11-08] MEDS: LORazepam 0.5 MG TABLET PO PRN (16:12)
[2021-11-08 16:13] VITALS: BP 166/79
[2021-11-08 17:47] LABS: GLUCOMETER DEV NAME(LOC) BV2X.2; GLUCOSE,POINT OF CARE 232 MG/DL (70-110)
[2021-11-08] MEDS: ATORVASTATIN CALCIUM 10 MG TABLET PO SCH (20:04)
[2021-11-08] MEDS: DIVALPROEX SODIUM 500 MG ER TABLET PO SCH (20:04)
[2021-11-08] MEDS: MELATONIN 5 MG TABLET PO SCH (20:04)
[2021-11-08] MEDS: QUEtiapine FUMARATE 200 MG TABLET PO SCH ×2 (20:06→20:18)
[2021-11-08 20:36] LABS: GLUCOMETER DEV NAME(LOC) BV2X.2; GLUCOSE,POINT OF CARE 285 MG/DL (70-110)
[2021-11-08] MEDS ORDERED: INSULIN GLARGINE,HUM.REC.ANLOG 100 UNITS/ML SQ SCH (21:00)
[2021-11-09 02:07] VITALS: BP 146/66
[2021-11-09 05:41] LABS: GLUCOMETER DEV NAME(LOC) BV2X.2; GLUCOSE,POINT OF CARE 247 MG/DL (70-110)
[2021-11-09] MEDS: INSULIN LISPRO 100 UNITS/ML SQ PRN ×4 (06:02→20:29)
[2021-11-09] MEDS: MetFORMIN HCL 500 MG TABLET PO SCH ×3 (06:03→16:49)
[2021-11-09 08:13] VITALS: BP 168/78
[2021-11-09] MEDS: THIAMINE 100 MG TABLET PO SCH ×2 (08:32→16:22)
[2021-11-09] MEDS: FOLIC ACID 1 MG TABLET PO SCH (08:32)
[2021-11-09] MEDS: LORazepam 0.5 MG TABLET PO PRN ×2 (08:32→16:22)
[2021-11-09] MEDS: LISINOPRIL 20 MG TABLET PO SCH (08:32)
[2021-11-09] MEDS: MULTIVITAMINS WITH MINERALS, THERAPEUTIC TABLET PO SCH (08:32)
[2021-11-09] MEDS: ARIPiprazole 15 MG TABLET PO SCH (08:32)
[2021-11-09] MEDS: SOLIFENACIN SUCCINATE 5 MG TABLET PO SCH (08:32)
[2021-11-09] MEDS: OMEGA-3/DHA/EPA/FISH OIL 1,000 MG CAPSULE PO SCH (08:32)
[2021-11-09] MEDS: NALTREXONE HCL 50 MG TABLET PO SCH (08:33)
[2021-11-09] MEDS: AmLODIPine BESYLATE 5 MG TABLET PO SCH (08:33)
[2021-11-09] MEDS: NICOTINE 21 MG/24 HOUR PATCH TD SCH (08:44)
[2021-11-09 11:26] LABS: GLUCOMETER DEV NAME(LOC) BV2X.2; GLUCOSE,POINT OF CARE 180 MG/DL (70-110)
[2021-11-09 16:10] VITALS: BP 145/75
[2021-11-09 17:41] LABS: GLUCOMETER DEV NAME(LOC) BV2X.2; GLUCOSE,POINT OF CARE 320 MG/DL (70-110)
[2021-11-09] MEDS: MELATONIN 5 MG TABLET PO SCH (20:01)
[2021-11-09] MEDS: DIVALPROEX SODIUM 500 MG ER TABLET PO SCH (20:01)
[2021-11-09] MEDS: ATORVASTATIN CALCIUM 10 MG TABLET PO SCH (20:01)
[2021-11-09] MEDS: QUEtiapine FUMARATE 200 MG TABLET PO SCH (20:09)
[2021-11-09 20:26] LABS: GLUCOMETER DEV NAME(LOC) BV2X.2; GLUCOSE,POINT OF CARE 272 MG/DL (70-110)
[2021-11-09] MEDS ORDERED: INSULIN GLARGINE,HUM.REC.ANLOG 100 UNITS/ML SQ SCH (21:00)
[2021-11-10 01:01] VITALS: BP 167/81
[2021-11-10 02:00] VITALS: BP 150/77
[2021-11-10 06:51] LABS: GLUCOMETER DEV NAME(LOC) BV2X.2; GLUCOSE,POINT OF CARE 90 MG/DL (70-110)
[2021-11-10] MEDS: MetFORMIN HCL 500 MG TABLET PO SCH ×2 (06:51→17:00)
[2021-11-10] MEDS: NICOTINE 21 MG/24 HOUR PATCH TD SCH (08:57)
[2021-11-10] MEDS: NALTREXONE HCL 50 MG TABLET PO SCH (08:57)
[2021-11-10] MEDS: ARIPiprazole 15 MG TABLET PO SCH (08:58)
[2021-11-10] MEDS: AmLODIPine BESYLATE 5 MG TABLET PO SCH (08:58)
[2021-11-10] MEDS: FOLIC ACID 1 MG TABLET PO SCH (08:58)
[2021-11-10] MEDS: OMEGA-3/DHA/EPA/FISH OIL 1,000 MG CAPSULE PO SCH (08:58)
[2021-11-10] MEDS: LISINOPRIL 20 MG TABLET PO SCH (08:58)
[2021-11-10] MEDS: THIAMINE 100 MG TABLET PO SCH ×2 (08:58→18:13)
[2021-11-10] MEDS: MULTIVITAMINS WITH MINERALS, THERAPEUTIC TABLET PO SCH (08:59)
[2021-11-10] MEDS: SOLIFENACIN SUCCINATE 5 MG TABLET PO SCH (08:59)
[2021-11-10 09:03] VITALS: BP 118/69
[2021-11-10 12:01] LABS: GLUCOMETER DEV NAME(LOC) BV2X.2; GLUCOSE,POINT OF CARE 70 MG/DL (70-110)
[2021-11-10 12:51] LABS: GLUCOMETER DEV NAME(LOC) POC.BV
[2021-11-10] MEDS: ACETAMINOPHEN 325 MG TABLET PO PRN (12:52)
[2021-11-10 16:06] VITALS: BP 111/60
[2021-11-10] MEDS: QUEtiapine FUMARATE 200 MG TABLET PO SCH (21:13)
[2021-11-10] MEDS: DIVALPROEX SODIUM 500 MG ER TABLET PO SCH (21:13)
[2021-11-10] MEDS: ATORVASTATIN CALCIUM 10 MG TABLET PO SCH (21:14)
[2021-11-10] MEDS: MELATONIN 5 MG TABLET PO SCH (21:14)
[2021-11-10] MEDS: INSULIN LISPRO 100 UNITS/ML SQ PRN (21:56)
[2021-11-10] MEDS: INSULIN GLARGINE,HUM.REC.ANLOG 100 UNITS/ML SQ SCH (21:57)
[2021-11-10 22:16] LABS: GLUCOMETER DEV NAME(LOC) BV2X.2; GLUCOSE,POINT OF CARE 150 MG/DL (70-110)
[2021-11-11] VITALS (7 sets, daily range): BP systolic 110–136; BP diastolic 60–73
[2021-11-11 05:51] LABS: GLUCOMETER DEV NAME(LOC) BV2X.2; GLUCOSE,POINT OF CARE 80 MG/DL (70-110)
[2021-11-11] MEDS: MetFORMIN HCL 500 MG TABLET PO SCH ×2 (06:16→16:54)
[2021-11-11] MEDS: NALTREXONE HCL 50 MG TABLET PO SCH (09:02)
[2021-11-11] MEDS: MULTIVITAMINS WITH MINERALS, THERAPEUTIC TABLET PO SCH (09:02)
[2021-11-11] MEDS: SOLIFENACIN SUCCINATE 5 MG TABLET PO SCH (09:02)
[2021-11-11] MEDS: OMEGA-3/DHA/EPA/FISH OIL 1,000 MG CAPSULE PO SCH (09:02)
[2021-11-11] MEDS: AmLODIPine BESYLATE 5 MG TABLET PO SCH (09:02)
[2021-11-11] MEDS: ARIPiprazole 15 MG TABLET PO SCH (09:02)
[2021-11-11] MEDS: FOLIC ACID 1 MG TABLET PO SCH (09:02)
[2021-11-11] MEDS: LISINOPRIL 20 MG TABLET PO SCH (09:03)
[2021-11-11] MEDS: NICOTINE 21 MG/24 HOUR PATCH TD SCH (09:03)
[2021-11-11] MEDS: THIAMINE 100 MG TABLET PO SCH ×2 (09:03→16:54)
[2021-11-11 11:31] LABS: GLUCOMETER DEV NAME(LOC) BV2X.2; GLUCOSE,POINT OF CARE 182 MG/DL (70-110)
[2021-11-11] MEDS: INSULIN LISPRO 100 UNITS/ML SQ PRN ×3 (11:42→20:43)
[2021-11-11 17:06] LABS: GLUCOMETER DEV NAME(LOC) BV2X.2; GLUCOSE,POINT OF CARE 229 MG/DL (70-110)
[2021-11-11 20:17] LABS: GLUCOMETER DEV NAME(LOC) BV2X.2; GLUCOSE,POINT OF CARE 174 MG/DL (70-110)
[2021-11-11] MEDS: ATORVASTATIN CALCIUM 10 MG TABLET PO SCH (20:30)
[2021-11-11] MEDS: DIVALPROEX SODIUM 500 MG ER TABLET PO SCH (20:30)
[2021-11-11] MEDS: ACETAMINOPHEN 325 MG TABLET PO PRN (20:30)
[2021-11-11] MEDS: QUEtiapine FUMARATE 200 MG TABLET PO SCH (20:31)
[2021-11-11] MEDS: MELATONIN 5 MG TABLET PO SCH (20:32)
[2021-11-11] MEDS: INSULIN GLARGINE,HUM.REC.ANLOG 100 UNITS/ML SQ SCH (20:43)
[2021-11-12] VITALS (10 sets, daily range): BP systolic 13–161; BP diastolic 64–82
[2021-11-12 06:17] LABS: GLUCOMETER DEV NAME(LOC) BV2X.2; GLUCOSE,POINT OF CARE 215 MG/DL (70-110)
[2021-11-12] MEDS: MetFORMIN HCL 500 MG TABLET PO SCH ×2 (06:43→17:00)
[2021-11-12] MEDS: INSULIN LISPRO 100 UNITS/ML SQ PRN ×3 (06:44→21:05)
[2021-11-12] MEDS: MULTIVITAMINS WITH MINERALS, THERAPEUTIC TABLET PO SCH (09:29)
[2021-11-12] MEDS: OMEGA-3/DHA/EPA/FISH OIL 1,000 MG CAPSULE PO SCH (09:29)
[2021-11-12] MEDS: FOLIC ACID 1 MG TABLET PO SCH (09:29)
[2021-11-12] MEDS: AmLODIPine BESYLATE 5 MG TABLET PO SCH (09:29)
[2021-11-12] MEDS: THIAMINE 100 MG TABLET PO SCH (09:29)
[2021-11-12] MEDS: SOLIFENACIN SUCCINATE 5 MG TABLET PO SCH (09:29)
[2021-11-12] MEDS: NALTREXONE HCL 50 MG TABLET PO SCH (09:29)
[2021-11-12] MEDS: NICOTINE 21 MG/24 HOUR PATCH TD SCH (09:30)
[2021-11-12] MEDS: LISINOPRIL 20 MG TABLET PO SCH (09:30)
[2021-11-12] MEDS: ARIPiprazole 15 MG TABLET PO SCH (09:30)
[2021-11-12 11:26] LABS: GLUCOMETER DEV NAME(LOC) BV2X.2; GLUCOSE,POINT OF CARE 108 MG/DL (70-110)
[2021-11-12 16:31] LABS: GLUCOMETER DEV NAME(LOC) BV2X.2; GLUCOSE,POINT OF CARE 167 MG/DL (70-110)
[2021-11-12] MEDS: DIVALPROEX SODIUM 500 MG ER TABLET PO SCH (20:13)
[2021-11-12] MEDS: ATORVASTATIN CALCIUM 10 MG TABLET PO SCH (20:13)
[2021-11-12] MEDS: MELATONIN 5 MG TABLET PO SCH (20:13)
[2021-11-12 20:46] LABS: GLUCOMETER DEV NAME(LOC) BV2X.2; GLUCOSE,POINT OF CARE 180 MG/DL (70-110)
[2021-11-12] MEDS: QUEtiapine FUMARATE 200 MG TABLET PO SCH (21:00)
[2021-11-12] MEDS: INSULIN GLARGINE,HUM.REC.ANLOG 100 UNITS/ML SQ SCH (21:06)
[2021-11-13] VITALS (9 sets, daily range): BP systolic 117–158; BP diastolic 49–90
[2021-11-13 06:51] LABS: GLUCOMETER DEV NAME(LOC) BV2X.2; GLUCOSE,POINT OF CARE 135 MG/DL (70-110)
[2021-11-13] MEDS: MetFORMIN HCL 500 MG TABLET PO SCH ×2 (07:00→17:00)
[2021-11-13] MEDS: SOLIFENACIN SUCCINATE 5 MG TABLET PO SCH (09:19)
[2021-11-13] MEDS: MULTIVITAMINS WITH MINERALS, THERAPEUTIC TABLET PO SCH (09:19)
[2021-11-13] MEDS: OMEGA-3/DHA/EPA/FISH OIL 1,000 MG CAPSULE PO SCH (09:19)
[2021-11-13] MEDS: NALTREXONE HCL 50 MG TABLET PO SCH (09:19)
[2021-11-13] MEDS: LISINOPRIL 20 MG TABLET PO SCH (09:19)
[2021-11-13] MEDS: ARIPiprazole 15 MG TABLET PO SCH (09:19)
[2021-11-13] MEDS: NICOTINE 21 MG/24 HOUR PATCH TD SCH (09:20)
[2021-11-13] MEDS: AmLODIPine BESYLATE 5 MG TABLET PO SCH (09:20)
[2021-11-13 11:32] LABS: GLUCOMETER DEV NAME(LOC) BV2X.2; GLUCOSE,POINT OF CARE 215 MG/DL (70-110)
[2021-11-13] MEDS: INSULIN LISPRO 100 UNITS/ML SQ PRN (11:32)
[2021-11-13] MEDS: LORazepam 0.5 MG TABLET PO PRN (11:42)
[2021-11-13 17:16] LABS: GLUCOMETER DEV NAME(LOC) BV2X.2; GLUCOSE,POINT OF CARE 90 MG/DL (70-110)
[2021-11-13 17:16] LABS: GLUCOMETER DEV NAME(LOC) BV2X.2; GLUCOSE,POINT OF CARE 65 MG/DL (70-110)
[2021-11-13] MEDS: MELATONIN 5 MG TABLET PO SCH (20:11)
[2021-11-13] MEDS: DIVALPROEX SODIUM 500 MG ER TABLET PO SCH (20:12)
[2021-11-13] MEDS: ATORVASTATIN CALCIUM 10 MG TABLET PO SCH (20:12)
[2021-11-13] MEDS: QUEtiapine FUMARATE 200 MG TABLET PO SCH (20:12)
[2021-11-13] MEDS: INSULIN GLARGINE,HUM.REC.ANLOG 100 UNITS/ML SQ SCH (20:29)
[2021-11-13 21:01] LABS: GLUCOMETER DEV NAME(LOC) BV2X.2; GLUCOSE,POINT OF CARE 135 MG/DL (70-110)
[2021-11-14] VITALS (9 sets, daily range): BP systolic 105–139; BP diastolic 54–84
[2021-11-14 06:16] LABS: GLUCOMETER DEV NAME(LOC) BV2X.2; GLUCOSE,POINT OF CARE 162 MG/DL (70-110)
[2021-11-14] MEDS: INSULIN LISPRO 100 UNITS/ML SQ PRN ×3 (06:35→17:03)
[2021-11-14] MEDS: MetFORMIN HCL 500 MG TABLET PO SCH ×2 (06:40→16:02)
[2021-11-14] MEDS: AmLODIPine BESYLATE 5 MG TABLET PO SCH (09:00)
[2021-11-14] MEDS: OMEGA-3/DHA/EPA/FISH OIL 1,000 MG CAPSULE PO SCH (09:23)
[2021-11-14] MEDS: NICOTINE 21 MG/24 HOUR PATCH TD SCH (09:24)
[2021-11-14] MEDS: SOLIFENACIN SUCCINATE 5 MG TABLET PO SCH (09:24)
[2021-11-14] MEDS: NALTREXONE HCL 50 MG TABLET PO SCH (09:24)
[2021-11-14] MEDS: ARIPiprazole 15 MG TABLET PO SCH (09:24)
[2021-11-14] MEDS: MULTIVITAMINS WITH MINERALS, THERAPEUTIC TABLET PO SCH (09:24)
[2021-11-14] MEDS: LISINOPRIL 20 MG TABLET PO SCH (09:24)
[2021-11-14 11:11] LABS: GLUCOMETER DEV NAME(LOC) BV2X.2; GLUCOSE,POINT OF CARE 303 MG/DL (70-110)
[2021-11-14 17:10] LABS: GLUCOMETER DEV NAME(LOC) BV2X.2; GLUCOSE,POINT OF CARE 342 MG/DL (70-110)
[2021-11-14] MEDS: ATORVASTATIN CALCIUM 10 MG TABLET PO SCH (20:23)
[2021-11-14] MEDS: MELATONIN 5 MG TABLET PO SCH (20:24)
[2021-11-14] MEDS: DIVALPROEX SODIUM 500 MG ER TABLET PO SCH (20:24)
[2021-11-14] MEDS ORDERED: QUEtiapine FUMARATE 300 MG TABLET PO SCH (21:00)
[2021-11-14] MEDS: INSULIN GLARGINE,HUM.REC.ANLOG 100 UNITS/ML SQ SCH (21:54)
[2021-11-14 22:01] LABS: GLUCOMETER DEV NAME(LOC) BV2X.2; GLUCOSE,POINT OF CARE 183 MG/DL (70-110)
[2021-11-15] VITALS (10 sets, daily range): BP systolic 107–153; BP diastolic 56–84
[2021-11-15] MEDS: INSULIN LISPRO 100 UNITS/ML SQ PRN ×4 (06:43→20:52)
[2021-11-15 06:46] LABS: GLUCOMETER DEV NAME(LOC) BV2X.2; GLUCOSE,POINT OF CARE 310 MG/DL (70-110)
[2021-11-15] MEDS: MetFORMIN HCL 500 MG TABLET PO SCH ×2 (07:00→17:00)
[2021-11-15] MEDS: NALTREXONE HCL 50 MG TABLET PO SCH (08:37)
[2021-11-15] MEDS: LISINOPRIL 20 MG TABLET PO SCH (08:37)
[2021-11-15] MEDS: MULTIVITAMINS WITH MINERALS, THERAPEUTIC TABLET PO SCH (08:37)
[2021-11-15] MEDS: OMEGA-3/DHA/EPA/FISH OIL 1,000 MG CAPSULE PO SCH (08:37)
[2021-11-15] MEDS: SOLIFENACIN SUCCINATE 5 MG TABLET PO SCH (08:37)
[2021-11-15] MEDS: ARIPiprazole 15 MG TABLET PO SCH (08:37)
[2021-11-15] MEDS: AmLODIPine BESYLATE 5 MG TABLET PO SCH (08:38)
[2021-11-15] MEDS: LORazepam 0.5 MG TABLET PO PRN (08:44)
[2021-11-15] MEDS: NICOTINE 21 MG/24 HOUR PATCH TD SCH (08:45)
[2021-11-15 11:11] LABS: GLUCOMETER DEV NAME(LOC) BV2X.2; GLUCOSE,POINT OF CARE 220 MG/DL (70-110)
[2021-11-15 16:46] LABS: GLUCOMETER DEV NAME(LOC) BV2X.2; GLUCOSE,POINT OF CARE 300 MG/DL (70-110)
[2021-11-15] MEDS: QUEtiapine FUMARATE 200 MG TABLET PO SCH (20:43)
[2021-11-15] MEDS: MELATONIN 5 MG TABLET PO SCH (20:43)
[2021-11-15] MEDS: ATORVASTATIN CALCIUM 10 MG TABLET PO SCH (20:43)
[2021-11-15] MEDS: DIVALPROEX SODIUM 500 MG ER TABLET PO SCH (20:43)
[2021-11-15 20:46] LABS: GLUCOMETER DEV NAME(LOC) BV2X.2; GLUCOSE,POINT OF CARE 216 MG/DL (70-110)
[2021-11-15] MEDS: INSULIN GLARGINE,HUM.REC.ANLOG 100 UNITS/ML SQ SCH (20:52)
[2021-11-16] VITALS (11 sets, daily range): BP systolic 103–143; BP diastolic 52–88
[2021-11-16 05:47] LABS: GLUCOMETER DEV NAME(LOC) BV2X.2; GLUCOSE,POINT OF CARE 200 MG/DL (70-110)
[2021-11-16] MEDS: INSULIN LISPRO 100 UNITS/ML SQ PRN ×4 (06:38→20:45)
[2021-11-16] MEDS: MetFORMIN HCL 500 MG TABLET PO SCH ×2 (06:39→17:00)
[2021-11-16] MEDS: ARIPiprazole 15 MG TABLET PO SCH (09:23)
[2021-11-16] MEDS: LISINOPRIL 20 MG TABLET PO SCH (09:23)
[2021-11-16] MEDS: AmLODIPine BESYLATE 5 MG TABLET PO SCH (09:23)
[2021-11-16] MEDS: NALTREXONE HCL 50 MG TABLET PO SCH (09:24)
[2021-11-16] MEDS: NICOTINE 21 MG/24 HOUR PATCH TD SCH (09:24)
[2021-11-16] MEDS: SOLIFENACIN SUCCINATE 5 MG TABLET PO SCH (09:25)
[2021-11-16] MEDS: MULTIVITAMINS WITH MINERALS, THERAPEUTIC TABLET PO SCH (09:26)
[2021-11-16] MEDS: OMEGA-3/DHA/EPA/FISH OIL 1,000 MG CAPSULE PO SCH (09:27)
[2021-11-16 13:01] LABS: GLUCOMETER DEV NAME(LOC) BV2X.2; GLUCOSE,POINT OF CARE 324 MG/DL (70-110)
[2021-11-16 17:07] LABS: GLUCOMETER DEV NAME(LOC) BV2X.2; GLUCOSE,POINT OF CARE 280 MG/DL (70-110)
[2021-11-16] MEDS: MELATONIN 5 MG TABLET PO SCH (20:36)
[2021-11-16] MEDS: QUEtiapine FUMARATE 200 MG TABLET PO SCH (20:37)
[2021-11-16] MEDS: DIVALPROEX SODIUM 500 MG ER TABLET PO SCH (20:37)
[2021-11-16] MEDS: ATORVASTATIN CALCIUM 10 MG TABLET PO SCH (20:37)
[2021-11-16 20:51] LABS: GLUCOMETER DEV NAME(LOC) BV2X.2; GLUCOSE,POINT OF CARE 300 MG/DL (70-110)
[2021-11-16] MEDS ORDERED: INSULIN GLARGINE,HUM.REC.ANLOG 100 UNITS/ML SQ SCH (21:00)
[2021-11-17 00:16] VITALS: BP 128/76
[2021-11-17 06:16] VITALS: BP 130/77
[2021-11-17 06:56] LABS: GLUCOMETER DEV NAME(LOC) BV2X.2; GLUCOSE,POINT OF CARE 127 MG/DL (70-110)
[2021-11-17] MEDS: MetFORMIN HCL 500 MG TABLET PO SCH (07:00)
[2021-11-17 08:17] VITALS: BP 126/54
[2021-11-17] MEDS: SOLIFENACIN SUCCINATE 5 MG TABLET PO SCH (09:00)
[2021-11-17] MEDS: MULTIVITAMINS WITH MINERALS, THERAPEUTIC TABLET PO SCH (09:00)
[2021-11-17] MEDS: OMEGA-3/DHA/EPA/FISH OIL 1,000 MG CAPSULE PO SCH (09:00)
[2021-11-17] MEDS: ARIPiprazole 15 MG TABLET PO SCH (09:00)
[2021-11-17] MEDS: LISINOPRIL 20 MG TABLET PO SCH (09:00)
[2021-11-17] MEDS: NALTREXONE HCL 50 MG TABLET PO SCH (09:00)
[2021-11-17] MEDS: AmLODIPine BESYLATE 5 MG TABLET PO SCH (09:01)
[2021-11-17] MEDS: NICOTINE 21 MG/24 HOUR PATCH TD SCH (09:02)
[2021-11-17 09:16] LABS: GLUCOMETER DEV NAME(LOC) POC.BV
[2021-11-17] MEDS ORDERED: OMEG-135 PO (09:26)
[2021-11-17] MEDS ORDERED: QUET200T30 PO (09:26)
[2021-11-17] MEDS ORDERED: DIVA-80 PO (09:26)
[2021-11-17] MEDS ORDERED: NALT50TA PO (09:26)
[2021-11-17] MEDS ORDERED: MELA5TAB40 PO (09:26)
[2021-11-17 10:17] VITALS: BP 136/58
[2021-11-17 11:16] LABS: GLUCOMETER DEV NAME(LOC) BV2X.2; GLUCOSE,POINT OF CARE 241 MG/DL (70-110)
[2021-11-17] MEDS: INSULIN LISPRO 100 UNITS/ML SQ PRN (11:38)
[2021-11-17 12:16] VITALS: BP 135/56
[2021-11-17 14:31] VITALS: BP 147/79
[2021-12-01] MEDS ORDERED: ARIPiprazole ER SUSPENSION 400 MG PRE-FILLED DUAL CHAMBER SYRINGE IM SCH (09:00)
== END 2021-11-17 17:20 | disposition home or self-care (01) | DRG 885 ==
LOC: EMS 08:57 → B2X 11:54
PROVIDERS: ADMIT Psychiatry & Neurology Psychiatry; ATTEND Psychiatry & Neurology Psychiatry
DX: F25.0 Schizoaffective disorder, bipolar type (principal); U07.1 COVID-19; E11.65 Type 2 diabetes mellitus with hyperglycemia; R45.851 Suicidal ideations; I12.9 Hypertensive chronic kidney disease with stage 1 through stage 4 chronic kidney disease, or unspecified chronic kidney disease; E03.9 Hypothyroidism, unspecified; E11.22 Type 2 diabetes mellitus with diabetic chronic kidney disease; E78.5 Hyperlipidemia, unspecified; N18.1 Chronic kidney disease, stage 1; M79.671 Pain in right foot; M79.672 Pain in left foot; J44.9 Chronic obstructive pulmonary disease, unspecified; F32.A Depression, unspecified; N32.81 Overactive bladder; R32 Unspecified urinary incontinence; F41.9 Anxiety disorder, unspecified; Z55.9 Problems related to education and literacy, unspecified; Z59.9 Problem related to housing and economic circumstances, unspecified; Z63.9 Problem related to primary support group, unspecified; Z65.3 Problems related to other legal circumstances; Z82.49 Family history of ischemic heart disease and other diseases of the circulatory system; Z83.3 Family history of diabetes mellitus; Z86.718 Personal history of other venous thrombosis and embolism; Z87.891 Personal history of nicotine dependence; Z91.19 Patient's noncompliance with other medical treatment and regimen; Z28.21 Immunization not carried out because of patient refusal; Z88.4 Allergy status to anesthetic agent; Z79.899 Other long term (current) drug therapy
CPT/HCPCS: 80053; 80164; 82962; 83036; 84439; 84443; 85025; 86592; 99285; G0480; J0401; J1815; Q9967

== ENCOUNTER 2022-03-24 16:48 | Emergency (ER) | payer MEDICARE, SELFPAY ==
[~2022-03-24] VITALS: Ht 160 cm; Wt 71.4 kg
[~2022-03-24 16:48] MED LIST changes: +ATOR20TA65 PO; +INSLAN SQ; +LISI-894 PO; +NALT50TA PO; +OMEG-108 PO; -OMEG-135 PO; +QUET200T30 PO
[2022-03-24 17:25] VITALS: BP 161/82
[2022-03-24] MEDS ORDERED: ARIP15TA27 PO (17:33)
[2022-03-24] MEDS ORDERED: LISI-893 PO (17:34)
[2022-03-24] MEDS ORDERED: METF-1211 PO (17:35)
[2022-03-24] MEDS ORDERED: DIVA-80 PO (17:36)
== END 2022-03-24 17:54 | disposition home or self-care (01) ==
LOC: EMS 16:58
DX: E11.9 Type 2 diabetes mellitus without complications (principal); F20.0 Paranoid schizophrenia; F31.9 Bipolar disorder, unspecified; F12.90 Cannabis use, unspecified, uncomplicated; F17.210 Nicotine dependence, cigarettes, uncomplicated; Z76.0 Encounter for issue of repeat prescription; Z88.8 Allergy status to other drugs, medicaments and biological substances; Z79.84 Long term (current) use of oral hypoglycemic drugs; Z79.899 Other long term (current) drug therapy
CPT/HCPCS: 99281; Z7502

== ENCOUNTER 2022-06-18 20:06 | Emergency (ER) | payer MEDICARE ==
[~2022-06-18] VITALS: Ht 160 cm; Wt 71.4 kg
[~2022-06-18 20:06] MED LIST changes: -OMEG-108 PO; +OMEG-135 PO
[2022-06-18 20:12] VITALS: BP 142/71
[2022-06-18] MEDS ORDERED: HALOPERIDOL 5 MG TABLET PO ONE (21:00)
[2022-06-18] MEDS ORDERED: LORazepam 1 MG TABLET PO ONE (21:00)
[2022-06-18 21:17] LABS: BASOPHILS % (AUTO) 0.6 % (0.0-2.0); EOSINOPHILS % (AUTO) 1.6 % (1.0-6.0); HEMATOCRIT 38.1 % (36-46); HEMOGLOBIN 13.1 g/dL (12.0-16.0); LYMPHOCYTES # (AUTO) 2.7 K/uL (1.0-4.8); LYMPHOCYTES % (AUTO) 35.6 % (22.0-44.0); MEAN CORPUSCULAR HEMOGLOBIN 30.9 pg (26.0-34.0); MEAN CORPUSCULAR HGB CONC 34.3 G/dL (31.0-37.0); MEAN CORPUSCULAR VOLUME 90 fL (80-100); MONOCYTES # (AUTO) 0.4 K/uL (0.1-1.0); MONOCYTES % (AUTO) 4.7 % (2.0-9.0); NEUTROPHILS # (AUTO) 4.4 K/uL (1.8-7.7); NEUTROPHILS % (AUTO) 57.5 % (40.0-70.0); PLATELET COUNT (AUTO) 378 K/uL (150-450); RED BLOOD CELL COUNT(AUTO) 4.23 MIL/uL (4.00-5.20); RED CELL DISTRIBUTION WIDTH 13.3 % (11.5-14.5)
[2022-06-18 21:23] LABS: ANION GAP 5 mmol/L (8-16); CALCIUM, TOTAL 8.8 mg/dL (8.8-10.5); CARBON DIOXIDE 29 mmol/L (22-29); CHLORIDE 101 mmol/L (98-107); CREATININE 0.91 mg/dL (0.60-1.30); GLUCOSE,RANDOM 264 mg/dL (70-110); POTASSIUM 3.8 mmol/L (3.5-5.1); SODIUM SERUM 135 mmol/L (136-145); UREA NITROGEN, BLOOD 11 mg/dL (7-18)
[2022-06-18 21:24] LABS: GLOMERULAR FILTR. RATE CALC > 60 mL/min (>60)
[2022-06-18 21:29] LABS: ALANINE AMINOTRANSFERASE 17 U/L (12-78); ALKALINE PHOSPHATASE 90 U/L (46-116); ASPARTATE AMINOTRANSFERASE 11 U/L (15-37); BILIRUBIN,TOTAL 0.3 mg/dL (0.1-1.0); TOTAL PROTEIN, SERUM 7.3 g/dL (6.4-8.2)
== END 2022-06-19 05:18 | disposition home or self-care (01) ==
LOC: EMS 20:06
DX: F20.9 Schizophrenia, unspecified (principal); F32.A Depression, unspecified; E11.9 Type 2 diabetes mellitus without complications; R10.9 Unspecified abdominal pain; F12.90 Cannabis use, unspecified, uncomplicated; F17.210 Nicotine dependence, cigarettes, uncomplicated; Z98.890 Other specified postprocedural states; Z88.4 Allergy status to anesthetic agent
CPT/HCPCS: 99284; 80053; 82962; 85025; 36415; 74022; G0480; 99283

== ENCOUNTER 2022-06-25 21:38 | Emergency (ER) | payer MEDICARE ==
[~2022-06-25] VITALS: Ht 160 cm; Wt 62.0 kg
[~2022-06-25 21:38] MED LIST changes: -ATOR10TA84 PO; -LISI-893 PO
[2022-06-25] MEDS ORDERED: LORazepam 1 MG TABLET PO ONE (22:00)
[2022-06-25] MEDS ORDERED: HALOPERIDOL 5 MG TABLET PO ONE (22:00)
[2022-06-26 05:57] VITALS: BP 136/69
== END 2022-06-26 06:35 | disposition home or self-care (01) ==
LOC: EMS 21:39
DX: F25.9 Schizoaffective disorder, unspecified (principal); F15.10 Other stimulant abuse, uncomplicated; F32.A Depression, unspecified; F17.210 Nicotine dependence, cigarettes, uncomplicated; F12.90 Cannabis use, unspecified, uncomplicated; E11.9 Type 2 diabetes mellitus without complications; I10 Essential (primary) hypertension; Z98.890 Other specified postprocedural states; Z59.00 Homelessness unspecified
CPT/HCPCS: 99283

== ENCOUNTER 2022-08-03 20:49 | Inpatient (IN) | payer MEDICARE ==
[~2022-08-03] VITALS: Ht 160 cm; Wt 52.2 kg
[2022-08-03] MEDS ORDERED: OLANZapine 5 MG RAPDIS TABLET PO PRN (23:15)
[2022-08-03] MEDS ORDERED: ZOLPIDEM TARTRATE 10 MG TABLET PO PRN (23:15)
[2022-08-03] MEDS ORDERED: LORazepam 2 MG TABLET PO PRN (23:15)
[2022-08-03 23:22] LABS: APPEARANCE,URINE CLEAR (CLEAR); BILIRUBIN,URINE NEGATIVE (NEGATIVE); GLUCOSE, URINE (UA) TRACE mg/dL (NEGATIVE); KETONES,URINE TRACE mg/dL (NEGATIVE); LEUKOCYTE ESTERASE ,URINE NEGATIVE (NEGATIVE); NITRATE,URINE NEGATIVE (NEGATIVE); OCCULT BLOOD,URINE NEGATIVE (NEGATIVE); PROTEIN,URINE 30-70 mg/dL (NEGATIVE); SPECIFIC GRAVITIY, URINE 1.025 (1.003-1.030); UROBILINOGEN,URINE <=1.0 mg/dL (<=1.0)
[2022-08-03 23:28] LABS: AMPHET/METH SCREEN,URINE POSITIVE (NEGATIVE); BARBITURATE SCREEN, URINE NEGATIVE (NEGATIVE); BENZODIAZEPINES SCREEN,URINE NEGATIVE (NEGATIVE); CANNABINOID SCREEN,URINE NEGATIVE (NEGATIVE); COCAINE SCREEN,URINE NEGATIVE (NEGATIVE); METHADONE SCREEN, URINE NEGATIVE (NEGATIVE); OPIATE SCREEN,URINE NEGATIVE (NEGATIVE); PHENCYCLIDINE SCREEN,URINE NEGATIVE (NEGATIVE)
[2022-08-03 23:29] LABS: COVID AG,FIA SOURCE NASOPHARYNGEAL
[2022-08-03 23:32] LABS: BASOPHILS % (AUTO) 0.4 % (0.0-2.0); EOSINOPHILS % (AUTO) 1.4 % (1.0-6.0); HEMATOCRIT 40.6 % (36-46); HEMOGLOBIN 13.5 g/dL (12.0-16.0); LYMPHOCYTES % (AUTO) 32.1 % (22.0-44.0); MEAN CORPUSCULAR HGB CONC 33.4 G/dL (31.0-37.0); MEAN CORPUSCULAR VOLUME 93 fL (80-100); MONOCYTES # (AUTO) 0.8 K/uL (0.1-1.0); MONOCYTES % (AUTO) 8.1 % (2.0-9.0); NEUTROPHILS # (AUTO) 5.4 K/uL (1.8-7.7); PLATELET COUNT (AUTO) 331 K/uL (150-450); RED BLOOD CELL COUNT(AUTO) 4.36 MIL/uL (4.00-5.20); RED CELL DISTRIBUTION WIDTH 14.1 % (11.5-14.5)
[2022-08-03 23:47] LABS: ALANINE AMINOTRANSFERASE 14 U/L (12-78); ALBUMIN 3.6 g/dL (3.4-5.0); ALKALINE PHOSPHATASE 112 U/L (46-116); ANION GAP 7 mmol/L (8-16); ASPARTATE AMINOTRANSFERASE 9 U/L (15-37); BILIRUBIN,TOTAL 0.4 mg/dL (0.1-1.0); CALCIUM, TOTAL 9.1 mg/dL (8.8-10.5); CARBON DIOXIDE 31 mmol/L (22-29); CHLORIDE 102 mmol/L (98-107); CREATININE 0.75 mg/dL (0.60-1.30); GLUCOSE,RANDOM 126 mg/dL (70-110); SODIUM SERUM 140 mmol/L (136-145); TOTAL PROTEIN, SERUM 8.2 g/dL (6.4-8.2); UREA NITROGEN, BLOOD 18 mg/dL (7-18); VALPROIC ACID 39 mcg/mL (50-100)
[2022-08-03 23:48] LABS: GLOMERULAR FILTR. RATE CALC > 60 mL/min (>60)
[2022-08-03 23:49] LABS: POTASSIUM 2.9 mmol/L (3.5-5.1)
[2022-08-04] MEDS ORDERED: POTASSIUM CHLORIDE 20 MEQ ER TABLET PO ONE
[2022-08-04 03:17] VITALS: BP 121/68
[2022-08-04 06:52] LABS: GLUCOMETER DEV NAME(LOC) BV3S.; GLUCOSE,POINT OF CARE 180 MG/DL (70-110)
[2022-08-04 08:34] VITALS: BP 196/92
[2022-08-04] MEDS ORDERED: GLUCAGON,HUMAN RECOMBINANT 1 MG VIAL IM PRN (09:30)
[2022-08-04 09:40] VITALS: BP 173/88
[2022-08-04] MEDS: AmLODIPine BESYLATE 5 MG TABLET PO SCH (09:40)
[2022-08-04] MEDS: LISINOPRIL 20 MG TABLET PO SCH (09:41)
[2022-08-04] MEDS ORDERED: LOPERAMIDE HCL 2 MG CAPSULE PO PRN (09:45)
[2022-08-04] MEDS ORDERED: ACETAMINOPHEN 325 MG TABLET PO PRN (09:45)
[2022-08-04] MEDS ORDERED: TUBERCULIN, PURIFIED PROTEIN DERIVATIVE 5 TU/0.1 ML SYRINGE ID ONE (09:45)
[2022-08-04] MEDS ORDERED: MAGNESIUM HYDROXIDE SUSPENSION 30 ML UDCUP PO PRN (09:45)
[2022-08-04] MEDS ORDERED: PROMETHAZINE HCL 25 MG TABLET PO PRN (09:45)
[2022-08-04] MEDS ORDERED: MAG HYDROX/AL HYDROX/SIMETH ES 30 ML SUSPENSION UDCUP PO PRN (09:45)
[2022-08-04] MEDS ORDERED: GuaiFENesin/D-METHORPHAN [SUGAR-FREE] 200-20MG/10 ML SYRUP UDCUP PO PRN (09:45)
[2022-08-04] MEDS ORDERED: HydrOXYzine PAMOATE 50 MG CAPSULE PO PRN (09:45)
[2022-08-04 13:00] VITALS: BP 142/74
[2022-08-04] MEDS ORDERED: ARIPiprazole ER SUSPENSION 400 MG PRE-FILLED DUAL CHAMBER SYRINGE IM ONE (16:00)
[2022-08-04 16:31] LABS: GLUCOMETER DEV NAME(LOC) BV3S.; GLUCOSE,POINT OF CARE 225 MG/DL (70-110)
[2022-08-04] MEDS: THIAMINE 100 MG TABLET PO SCH (16:34)
[2022-08-04] MEDS: INSULIN LISPRO 100 UNITS/ML SQ PRN (16:35)
[2022-08-04 20:22] LABS: GLUCOMETER DEV NAME(LOC) BV3S.; GLUCOSE,POINT OF CARE 186 MG/DL (70-110)
[2022-08-04] MEDS: DIVALPROEX SODIUM 500 MG ER TABLET PO SCH (20:37)
[2022-08-04] MEDS: ARIPiprazole 10 MG TABLET PO SCH (20:37)
[2022-08-04] MEDS: MELATONIN 5 MG TABLET PO SCH (20:37)
[2022-08-04 21:13] VITALS: BP 159/77
[2022-08-05] MEDS: MetFORMIN HCL 500 MG TABLET PO SCH ×2 (06:49→17:14)
[2022-08-05 07:01] LABS: GLUCOMETER DEV NAME(LOC) BV3S.; GLUCOSE,POINT OF CARE 136 MG/DL (70-110)
[2022-08-05 07:43] VITALS: BP 191/86
[2022-08-05] MEDS: MULTIVITAMINS WITH MINERALS, THERAPEUTIC TABLET PO SCH (07:58)
[2022-08-05] MEDS: THIAMINE 100 MG TABLET PO SCH ×2 (07:58→17:15)
[2022-08-05] MEDS: LISINOPRIL 20 MG TABLET PO SCH (07:58)
[2022-08-05] MEDS: FOLIC ACID 1 MG TABLET PO SCH (07:58)
[2022-08-05] MEDS: AmLODIPine BESYLATE 5 MG TABLET PO SCH (07:58)
[2022-08-05] MEDS: CloNIDine HCL 0.1 MG TABLET PO PRN (07:58)
[2022-08-05] MEDS: NALTREXONE HCL 50 MG TABLET PO SCH (07:58)
[2022-08-05] MEDS: OMEGA-3/DHA/EPA/FISH OIL 1,000 MG CAPSULE PO SCH (07:59)
[2022-08-05 08:52] VITALS: BP 191/86
[2022-08-05] MEDS ORDERED: OMEGA-3/DHA/EPA/FISH OIL 1,000 MG CAPSULE PO SCH (09:00)
[2022-08-05 09:37] LABS: CHOL/HDL RATIO 3.7 (3.9-5.7); FREE T4 (FREE THYROXINE) 1.15 ng/dL (0.76-1.46); THYROID STIMULATING HORMONE 1.38 uIU/mL (0.36-3.74)
[2022-08-05 11:47] LABS: GLUCOMETER DEV NAME(LOC) BV3S.; GLUCOSE,POINT OF CARE 180 MG/DL (70-110)
[2022-08-05] MEDS: INSULIN LISPRO 100 UNITS/ML SQ PRN (11:53)
[2022-08-05] MEDS: DIVALPROEX SODIUM 500 MG ER TABLET PO SCH (20:22)
[2022-08-05] MEDS: INSULIN GLARGINE,HUM.REC.ANLOG 100 UNITS/ML SQ SCH (21:00)
[2022-08-05] MEDS: ATORVASTATIN CALCIUM 10 MG TABLET PO SCH (21:00)
[2022-08-05] MEDS: ARIPiprazole 10 MG TABLET PO SCH (21:00)
[2022-08-05] MEDS: MELATONIN 5 MG TABLET PO SCH (21:00)
[2022-08-06 06:16] LABS: GLUCOMETER DEV NAME(LOC) BV3S.; GLUCOSE,POINT OF CARE 96 MG/DL (70-110)
[2022-08-06] MEDS: MetFORMIN HCL 500 MG TABLET PO SCH ×2 (07:01→16:59)
[2022-08-06] MEDS: THIAMINE 100 MG TABLET PO SCH ×2 (08:29→16:59)
[2022-08-06] MEDS: MULTIVITAMINS WITH MINERALS, THERAPEUTIC TABLET PO SCH (08:29)
[2022-08-06] MEDS: OMEGA-3/DHA/EPA/FISH OIL 1,000 MG CAPSULE PO SCH (08:29)
[2022-08-06] MEDS: FOLIC ACID 1 MG TABLET PO SCH (08:29)
[2022-08-06] MEDS: NALTREXONE HCL 50 MG TABLET PO SCH (08:29)
[2022-08-06] MEDS: AmLODIPine BESYLATE 5 MG TABLET PO SCH (08:29)
[2022-08-06] MEDS: LISINOPRIL 20 MG TABLET PO SCH (08:29)
[2022-08-06] MEDS: SOLIFENACIN SUCCINATE 5 MG TABLET PO SCH (08:29)
[2022-08-06 08:35] VITALS: BP 155/71
[2022-08-06 17:01] LABS: GLUCOMETER DEV NAME(LOC) BV3S.; GLUCOSE,POINT OF CARE 163 MG/DL (70-110)
[2022-08-06 20:08] VITALS: BP 147/74
[2022-08-06] MEDS: DIVALPROEX SODIUM 500 MG ER TABLET PO SCH (20:52)
[2022-08-06] MEDS: ATORVASTATIN CALCIUM 10 MG TABLET PO SCH (21:00)
[2022-08-06] MEDS: ARIPiprazole 10 MG TABLET PO SCH (21:00)
[2022-08-06] MEDS: INSULIN GLARGINE,HUM.REC.ANLOG 100 UNITS/ML SQ SCH (21:00)
[2022-08-06] MEDS: MELATONIN 5 MG TABLET PO SCH (21:00)
[2022-08-07] MEDS: INSULIN LISPRO 100 UNITS/ML SQ PRN ×2 (06:39→17:40)
[2022-08-07 06:51] LABS: GLUCOMETER DEV NAME(LOC) BV3S.; GLUCOSE,POINT OF CARE 143 MG/DL (70-110)
[2022-08-07] MEDS: MetFORMIN HCL 500 MG TABLET PO SCH ×2 (06:55→17:29)
[2022-08-07 08:24] VITALS: BP 132/79
[2022-08-07] MEDS: THIAMINE 100 MG TABLET PO SCH ×2 (08:25→17:29)
[2022-08-07] MEDS: LISINOPRIL 20 MG TABLET PO SCH (08:25)
[2022-08-07] MEDS: NALTREXONE HCL 50 MG TABLET PO SCH (08:25)
[2022-08-07] MEDS: OMEGA-3/DHA/EPA/FISH OIL 1,000 MG CAPSULE PO SCH (08:25)
[2022-08-07] MEDS: AmLODIPine BESYLATE 5 MG TABLET PO SCH (08:26)
[2022-08-07] MEDS: FOLIC ACID 1 MG TABLET PO SCH (08:26)
[2022-08-07] MEDS: SOLIFENACIN SUCCINATE 5 MG TABLET PO SCH (08:26)
[2022-08-07] MEDS: MULTIVITAMINS WITH MINERALS, THERAPEUTIC TABLET PO SCH (08:26)
[2022-08-07 12:27] LABS: GLUCOMETER DEV NAME(LOC) BV3S.; GLUCOSE,POINT OF CARE 122 MG/DL (70-110)
[2022-08-07 17:51] LABS: GLUCOMETER DEV NAME(LOC) BV3S.; GLUCOSE,POINT OF CARE 220 MG/DL (70-110)
[2022-08-07] MEDS ORDERED: ARIPiprazole ER SUSPENSION 400 MG PRE-FILLED DUAL CHAMBER SYRINGE IM ONE (18:15)
[2022-08-07 20:12] VITALS: BP 146/72
[2022-08-07 20:56] LABS: GLUCOMETER DEV NAME(LOC) BV3S.; GLUCOSE,POINT OF CARE 91 MG/DL (70-110)
[2022-08-07] MEDS: INSULIN GLARGINE,HUM.REC.ANLOG 100 UNITS/ML SQ SCH (21:00)
[2022-08-07] MEDS: DIVALPROEX SODIUM 500 MG ER TABLET PO SCH (21:56)
[2022-08-07] MEDS: ARIPiprazole 10 MG TABLET PO SCH (21:56)
[2022-08-07] MEDS: ATORVASTATIN CALCIUM 10 MG TABLET PO SCH (21:56)
[2022-08-07] MEDS: MELATONIN 5 MG TABLET PO SCH (21:57)
[2022-08-08] MEDS: MetFORMIN HCL 500 MG TABLET PO SCH ×2 (06:40→17:02)
[2022-08-08 06:41] LABS: GLUCOMETER DEV NAME(LOC) BV3S.; GLUCOSE,POINT OF CARE 107 MG/DL (70-110)
[2022-08-08] MEDS: NALTREXONE HCL 50 MG TABLET PO SCH (08:15)
[2022-08-08] MEDS: FOLIC ACID 1 MG TABLET PO SCH (08:15)
[2022-08-08] MEDS: OMEGA-3/DHA/EPA/FISH OIL 1,000 MG CAPSULE PO SCH (08:15)
[2022-08-08] MEDS: LISINOPRIL 20 MG TABLET PO SCH (08:15)
[2022-08-08] MEDS: AmLODIPine BESYLATE 5 MG TABLET PO SCH (08:15)
[2022-08-08] MEDS: SOLIFENACIN SUCCINATE 5 MG TABLET PO SCH (08:15)
[2022-08-08] MEDS: THIAMINE 100 MG TABLET PO SCH ×2 (08:15→17:01)
[2022-08-08] MEDS: MULTIVITAMINS WITH MINERALS, THERAPEUTIC TABLET PO SCH (08:16)
[2022-08-08 08:29] VITALS: BP 194/87
[2022-08-08 10:25] VITALS: BP 190/80
[2022-08-08] MEDS: CloNIDine HCL 0.1 MG TABLET PO PRN (10:26)
[2022-08-08 11:30] VITALS: BP 144/52
[2022-08-08] MEDS: INSULIN LISPRO 100 UNITS/ML SQ PRN ×2 (11:57→16:56)
[2022-08-08 12:06] LABS: GLUCOMETER DEV NAME(LOC) BV3S.; GLUCOSE,POINT OF CARE 211 MG/DL (70-110)
[2022-08-08] MEDS ORDERED: ARIPiprazole ER SUSPENSION 400 MG PRE-FILLED DUAL CHAMBER SYRINGE IM ONE (14:00)
[2022-08-08 17:11] LABS: GLUCOMETER DEV NAME(LOC) BV3S.; GLUCOSE,POINT OF CARE 234 MG/DL (70-110)
[2022-08-08] MEDS: DIVALPROEX SODIUM 500 MG ER TABLET PO SCH (20:09)
[2022-08-08] MEDS: ARIPiprazole 10 MG TABLET PO SCH (20:09)
[2022-08-08] MEDS: ATORVASTATIN CALCIUM 10 MG TABLET PO SCH (20:09)
[2022-08-08] MEDS: MELATONIN 5 MG TABLET PO SCH (20:17)
[2022-08-08] MEDS: INSULIN GLARGINE,HUM.REC.ANLOG 100 UNITS/ML SQ SCH (20:51)
[2022-08-09 06:21] LABS: GLUCOMETER DEV NAME(LOC) BV3S.; GLUCOSE,POINT OF CARE 112 MG/DL (70-110)
[2022-08-09] MEDS: MetFORMIN HCL 500 MG TABLET PO SCH ×2 (06:53→16:30)
[2022-08-09 06:56] LABS: GLUCOMETER DEV NAME(LOC) BV3S.; GLUCOSE,POINT OF CARE 130 MG/DL (70-110)
[2022-08-09 08:10] VITALS: BP 162/72
[2022-08-09] MEDS: THIAMINE 100 MG TABLET PO SCH ×2 (08:41→16:30)
[2022-08-09] MEDS: AmLODIPine BESYLATE 5 MG TABLET PO SCH (08:41)
[2022-08-09] MEDS: NALTREXONE HCL 50 MG TABLET PO SCH (08:41)
[2022-08-09] MEDS: MULTIVITAMINS WITH MINERALS, THERAPEUTIC TABLET PO SCH (08:41)
[2022-08-09] MEDS: OMEGA-3/DHA/EPA/FISH OIL 1,000 MG CAPSULE PO SCH (08:41)
[2022-08-09] MEDS: FOLIC ACID 1 MG TABLET PO SCH (08:41)
[2022-08-09] MEDS: LISINOPRIL 20 MG TABLET PO SCH (08:43)
[2022-08-09] MEDS: SOLIFENACIN SUCCINATE 5 MG TABLET PO SCH (08:43)
[2022-08-09 11:56] LABS: GLUCOMETER DEV NAME(LOC) BV3S.; GLUCOSE,POINT OF CARE 114 MG/DL (70-110)
[2022-08-09 12:51] VITALS: BP 157/73
[2022-08-09] MEDS ORDERED: ARIP400S3 IM (14:42)
[2022-08-09] MEDS ORDERED: METF-1211 PO (14:42)
[2022-08-09] MEDS ORDERED: MELA5TAB40 PO (14:42)
[2022-08-09] MEDS ORDERED: ARIP10TA38 PO (14:42)
[2022-08-09] MEDS ORDERED: NALT50TA PO (14:42)
[2022-08-09] MEDS ORDERED: OMEG-135 PO (14:42)
[2022-08-09] MEDS ORDERED: DIVA-80 PO (14:42)
[2022-08-09] MEDS: INSULIN LISPRO 100 UNITS/ML SQ PRN (17:02)
[2022-08-09 17:21] LABS: GLUCOMETER DEV NAME(LOC) BV3N.; GLUCOSE,POINT OF CARE 176 MG/DL (70-110)
[2022-08-09 21:11] VITALS: BP 145/81
[2022-08-09] MEDS: MELATONIN 5 MG TABLET PO SCH (21:21)
[2022-08-09] MEDS: ARIPiprazole 10 MG TABLET PO SCH (21:21)
[2022-08-09] MEDS: DIVALPROEX SODIUM 500 MG ER TABLET PO SCH (21:22)
[2022-08-09] MEDS: ATORVASTATIN CALCIUM 10 MG TABLET PO SCH (21:22)
[2022-08-09] MEDS: INSULIN GLARGINE,HUM.REC.ANLOG 100 UNITS/ML SQ SCH (22:06)
[2022-08-09 22:47] LABS: GLUCOMETER DEV NAME(LOC) BV3N.; GLUCOSE,POINT OF CARE 171 MG/DL (70-110)
[2022-08-10 07:06] LABS: GLUCOMETER DEV NAME(LOC) BV3N.; GLUCOSE,POINT OF CARE 117 MG/DL (70-110)
[2022-08-10] MEDS: MetFORMIN HCL 500 MG TABLET PO SCH (07:11)
[2022-08-10] MEDS: FOLIC ACID 1 MG TABLET PO SCH (08:12)
[2022-08-10] MEDS: OMEGA-3/DHA/EPA/FISH OIL 1,000 MG CAPSULE PO SCH (08:12)
[2022-08-10] MEDS: LISINOPRIL 20 MG TABLET PO SCH (08:12)
[2022-08-10] MEDS: MULTIVITAMINS WITH MINERALS, THERAPEUTIC TABLET PO SCH (08:12)
[2022-08-10] MEDS: AmLODIPine BESYLATE 5 MG TABLET PO SCH (08:12)
[2022-08-10] MEDS: THIAMINE 100 MG TABLET PO SCH (08:12)
[2022-08-10] MEDS: NALTREXONE HCL 50 MG TABLET PO SCH (08:12)
[2022-08-10] MEDS: SOLIFENACIN SUCCINATE 5 MG TABLET PO SCH (08:13)
[2022-08-10 08:22] VITALS: BP 189/67
[2022-08-10 10:00] VITALS: BP 150/80
[2022-08-10] MEDS ORDERED: INSLAN SQ (10:07)
[2022-08-10] MEDS: INSULIN LISPRO 100 UNITS/ML SQ PRN (11:45)
[2022-08-10 12:27] LABS: GLUCOMETER DEV NAME(LOC) BV3S.; GLUCOSE,POINT OF CARE 166 MG/DL (70-110)
[2022-09-04] MEDS ORDERED: ARIPiprazole ER SUSPENSION 400 MG PRE-FILLED DUAL CHAMBER SYRINGE IM SCH (09:00)
== END 2022-08-10 14:28 | disposition home or self-care (01) | DRG 885 ==
LOC: EMS 20:54 → B3A 08-04 01:31
PROVIDERS: ADMIT Psychiatry & Neurology Psychiatry; ATTEND Psychiatry & Neurology Psychiatry
DX: F25.9 Schizoaffective disorder, unspecified (principal); E03.9 Hypothyroidism, unspecified; E11.22 Type 2 diabetes mellitus with diabetic chronic kidney disease; E78.5 Hyperlipidemia, unspecified; E87.6 Hypokalemia; F15.10 Other stimulant abuse, uncomplicated; F39 Unspecified mood [affective] disorder; Z20.822 Contact with and (suspected) exposure to COVID-19; F41.9 Anxiety disorder, unspecified; G47.00 Insomnia, unspecified; I12.9 Hypertensive chronic kidney disease with stage 1 through stage 4 chronic kidney disease, or unspecified chronic kidney disease; J44.9 Chronic obstructive pulmonary disease, unspecified; N18.1 Chronic kidney disease, stage 1; R32 Unspecified urinary incontinence; Z55.9 Problems related to education and literacy, unspecified; Z88.8 Allergy status to other drugs, medicaments and biological substances; Z59.9 Problem related to housing and economic circumstances, unspecified; Z63.9 Problem related to primary support group, unspecified; Z65.3 Problems related to other legal circumstances; Z82.49 Family history of ischemic heart disease and other diseases of the circulatory system; Z83.3 Family history of diabetes mellitus; Z86.16 Personal history of COVID-19; Z87.891 Personal history of nicotine dependence; Z91.14 Patient's other noncompliance with medication regimen
CPT/HCPCS: 80053; 80061; 80164; 81003; 82962; 84132; 84439; 84443; 84481; 85025; 86592; 99285; G0480; J0401; J1815; Q9967

== ENCOUNTER 2022-10-10 21:00 | Inpatient (IN) | payer MEDICARE ==
[~2022-10-10] VITALS: Ht 152.4 cm; Wt 64.9 kg
[~2022-10-10 21:00] MED LIST changes: -AMLO-257 PO; +ARIP10TA38 PO; -LISI-894 PO; -QUET200T30 PO
[2022-10-10 22:27] LABS: BASOPHILS % (AUTO) 0.6 % (0.0-2.0); EOSINOPHILS % (AUTO) 1.2 % (1.0-6.0); HEMATOCRIT 38.6 % (36-46); HEMOGLOBIN 12.8 g/dL (12.0-16.0); LYMPHOCYTES # (AUTO) 2.6 K/uL (1.0-4.8); LYMPHOCYTES % (AUTO) 22.3 % (22.0-44.0); MEAN CORPUSCULAR HEMOGLOBIN 30.4 pg (26.0-34.0); MEAN CORPUSCULAR HGB CONC 33.1 G/dL (31.0-37.0); MEAN CORPUSCULAR VOLUME 92 fL (80-100); MONOCYTES # (AUTO) 0.8 K/uL (0.1-1.0); MONOCYTES % (AUTO) 7.1 % (2.0-9.0); NEUTROPHILS % (AUTO) 68.8 % (40.0-70.0); PLATELET COUNT (AUTO) 384 K/uL (150-450); RED BLOOD CELL COUNT(AUTO) 4.21 MIL/uL (4.00-5.20); RED CELL DISTRIBUTION WIDTH 14.5 % (11.5-14.5)
[2022-10-10 22:37] LABS: ANION GAP 4 mmol/L (8-16); CALCIUM, TOTAL 9.9 mg/dL (8.8-10.5); CARBON DIOXIDE 30 mmol/L (22-29); CHLORIDE 99 mmol/L (98-107); CREATININE 0.89 mg/dL (0.60-1.30); GLUCOSE,RANDOM 318 mg/dL (70-110); POTASSIUM 3.8 mmol/L (3.5-5.1); SODIUM SERUM 133 mmol/L (136-145); UREA NITROGEN, BLOOD 14 mg/dL (7-18)
[2022-10-10 22:40] LABS: GLOMERULAR FILTR. RATE CALC > 60 mL/min (>60)
[2022-10-10 22:40] LABS: AMPHET/METH SCREEN,URINE NEGATIVE (NEGATIVE); BARBITURATE SCREEN, URINE NEGATIVE (NEGATIVE); BENZODIAZEPINES SCREEN,URINE NEGATIVE (NEGATIVE); CANNABINOID SCREEN,URINE NEGATIVE (NEGATIVE); COCAINE SCREEN,URINE NEGATIVE (NEGATIVE); METHADONE SCREEN, URINE NEGATIVE (NEGATIVE); OPIATE SCREEN,URINE NEGATIVE (NEGATIVE); PHENCYCLIDINE SCREEN,URINE NEGATIVE (NEGATIVE)
[2022-10-10 22:43] LABS: ALANINE AMINOTRANSFERASE 9 U/L (12-78); ALBUMIN 3.3 g/dL (3.4-5.0); ALKALINE PHOSPHATASE 113 U/L (46-116); ASPARTATE AMINOTRANSFERASE 9 U/L (15-37); BILIRUBIN,TOTAL 0.2 mg/dL (0.1-1.0); TOTAL PROTEIN, SERUM 8.5 g/dL (6.4-8.2); VALPROIC ACID 39 mcg/mL (50-100)
[2022-10-10 23:33] LABS: COVID AG,FIA SOURCE NASOPHARYNGEAL
[2022-10-11 03:21] LABS: GLUCOSE,POINT OF CARE 199 MG/DL (70-110)
[2022-10-11 03:29] LABS: APPEARANCE,URINE HAZY (CLEAR); BILIRUBIN,URINE NEGATIVE (NEGATIVE); GLUCOSE, URINE (UA) >=1000 mg/dL (NEGATIVE); KETONES,URINE NEGATIVE (NEGATIVE); LEUKOCYTE ESTERASE ,URINE MODERATE (NEGATIVE); NITRATE,URINE NEGATIVE (NEGATIVE); OCCULT BLOOD,URINE TRACE (NEGATIVE); PH,URINE 6.5 (5.0-8.0); PROTEIN,URINE TRACE mg/dL (NEGATIVE); UROBILINOGEN,URINE <=1.0 mg/dL (<=1.0)
[2022-10-11 03:31] LABS: BACTERIA,URINE Moderate /HPF (None Seen); RBC,URINE 0-2 /HPF (0-2); SQUAMOUS EPITHELIAL CELL,UR Moderate /LPF (None Seen)
[2022-10-11] MEDS ORDERED: NITROFURANTOIN MONOHYD/M-CRYST 100 MG CAPSULE [MACROBID] PO ONE (03:45)
[2022-10-11] MEDS ORDERED: GLUCAGON,HUMAN RECOMBINANT 1 MG VIAL IM PRN (08:00)
[2022-10-11] MEDS: SOLIFENACIN SUCCINATE 5 MG TABLET PO SCH ×2 (09:00→15:08)
[2022-10-11] MEDS: LISINOPRIL 20 MG TABLET PO SCH (09:57)
[2022-10-11] MEDS: LORazepam 2 MG TABLET PO PRN (09:57)
[2022-10-11] MEDS: NITROFURANTOIN MONOHYD/M-CRYST 100 MG CAPSULE [MACROBID] PO SCH ×2 (09:57→16:55)
[2022-10-11 11:16] LABS: GLUCOMETER DEV NAME(LOC) BV3S.; GLUCOSE,POINT OF CARE 257 MG/DL (70-110)
[2022-10-11] MEDS: INSULIN LISPRO 100 UNITS/ML SQ PRN ×3 (11:57→20:55)
[2022-10-11] MEDS ORDERED: PROMETHAZINE HCL 25 MG TABLET PO PRN (14:00)
[2022-10-11] MEDS ORDERED: TUBERCULIN, PURIFIED PROTEIN DERIVATIVE 5 TU/0.1 ML SYRINGE ID ONE (14:00)
[2022-10-11] MEDS ORDERED: MAG HYDROX/AL HYDROX/SIMETH ES 30 ML SUSPENSION UDCUP PO PRN (14:00)
[2022-10-11] MEDS ORDERED: LOPERAMIDE HCL 2 MG CAPSULE PO PRN (14:00)
[2022-10-11] MEDS ORDERED: GuaiFENesin/D-METHORPHAN [SUGAR-FREE] 200-20MG/10 ML SYRUP UDCUP PO PRN (14:00)
[2022-10-11] MEDS ORDERED: ACETAMINOPHEN 325 MG TABLET PO PRN (14:00)
[2022-10-11] MEDS ORDERED: HydrOXYzine PAMOATE 50 MG CAPSULE PO PRN (14:00)
[2022-10-11] MEDS ORDERED: MAGNESIUM HYDROXIDE SUSPENSION 30 ML UDCUP PO PRN (14:00)
[2022-10-11] MEDS ORDERED: PALIPERIDONE PALMITATE 234 MG/1.5 ML SYRINGE IM ONE (16:00)
[2022-10-11] MEDS: THIAMINE 100 MG TABLET PO SCH (16:54)
[2022-10-11] MEDS: MetFORMIN HCL 500 MG TABLET PO SCH (16:55)
[2022-10-11] MEDS ORDERED: INFLUENZA VIRUS VACCINE QVS 2022-23 (6MO+)/PF 60 MCG/0.5 ML SYRINGE IM. ONE (17:00)
[2022-10-11 17:21] LABS: GLUCOMETER DEV NAME(LOC) BV3S.; GLUCOSE,POINT OF CARE 291 MG/DL (70-110)
[2022-10-11 19:08] VITALS: BP 138/75
[2022-10-11] MEDS: OLANZapine 5 MG RAPDIS TABLET PO SCH (20:30)
[2022-10-11] MEDS: DIVALPROEX SODIUM 500 MG ER TABLET PO SCH (20:30)
[2022-10-11] MEDS: ATORVASTATIN CALCIUM 20 MG TABLET PO SCH (20:30)
[2022-10-11] MEDS: MELATONIN 5 MG TABLET PO SCH (20:33)
[2022-10-11] MEDS: INSULIN GLARGINE,HUM.REC.ANLOG 100 UNITS/ML SQ SCH (20:52)
[2022-10-11 21:01] LABS: GLUCOMETER DEV NAME(LOC) BV3S.; GLUCOSE,POINT OF CARE 231 MG/DL (70-110)
[2022-10-11 21:02] VITALS: BP 140/79
[2022-10-12 05:51] LABS: GLUCOMETER DEV NAME(LOC) BV3S.; GLUCOSE,POINT OF CARE 223 MG/DL (70-110)
[2022-10-12] MEDS: INSULIN LISPRO 100 UNITS/ML SQ PRN ×3 (06:35→19:56)
[2022-10-12] MEDS: MetFORMIN HCL 500 MG TABLET PO SCH ×2 (06:37→16:42)
[2022-10-12 07:29] LABS: CHOL/HDL RATIO 3.7 (3.9-5.7); FREE T4 (FREE THYROXINE) 1.07 ng/dL (0.76-1.46); THYROID STIMULATING HORMONE 1.5 uIU/mL (0.36-3.74)
[2022-10-12 07:43] LABS: HEMOGLOBIN A1C 8.1 % (3.8-5.6)
[2022-10-12 08:00] VITALS: BP 162/87
[2022-10-12] MEDS: FOLIC ACID 1 MG TABLET PO SCH (08:21)
[2022-10-12] MEDS: NALTREXONE HCL 50 MG TABLET PO SCH (08:22)
[2022-10-12] MEDS: MULTIVITAMINS WITH MINERALS, THERAPEUTIC TABLET PO SCH (08:22)
[2022-10-12] MEDS: NITROFURANTOIN MONOHYD/M-CRYST 100 MG CAPSULE [MACROBID] PO SCH ×2 (08:22→16:19)
[2022-10-12] MEDS: THIAMINE 100 MG TABLET PO SCH ×2 (08:22→16:19)
[2022-10-12] MEDS: SOLIFENACIN SUCCINATE 5 MG TABLET PO SCH (08:22)
[2022-10-12] MEDS: OMEGA-3/DHA/EPA/FISH OIL 1,000 MG CAPSULE PO SCH (08:22)
[2022-10-12] MEDS: LISINOPRIL 20 MG TABLET PO SCH (08:22)
[2022-10-12] MEDS: LORazepam 2 MG TABLET PO PRN (08:27)
[2022-10-12 11:36] LABS: GLUCOMETER DEV NAME(LOC) BV3S.; GLUCOSE,POINT OF CARE 72 MG/DL (70-110)
[2022-10-12] MEDS ORDERED: PALIPERIDONE PALMITATE 234 MG/1.5 ML SYRINGE IM ONE (13:30)
[2022-10-12 17:26] LABS: GLUCOMETER DEV NAME(LOC) BV3S.; GLUCOSE,POINT OF CARE 193 MG/DL (70-110)
[2022-10-12] MEDS: INSULIN GLARGINE,HUM.REC.ANLOG 100 UNITS/ML SQ SCH (19:57)
[2022-10-12] MEDS: OLANZapine 5 MG RAPDIS TABLET PO SCH (19:59)
[2022-10-12] MEDS: ATORVASTATIN CALCIUM 20 MG TABLET PO SCH (19:59)
[2022-10-12] MEDS: MELATONIN 5 MG TABLET PO SCH (20:00)
[2022-10-12] MEDS: DIVALPROEX SODIUM 500 MG ER TABLET PO SCH (20:00)
[2022-10-12 20:16] LABS: GLUCOMETER DEV NAME(LOC) BV3S.; GLUCOSE,POINT OF CARE 165 MG/DL (70-110)
[2022-10-13 02:37] VITALS: BP 140/75
[2022-10-13] MEDS: MetFORMIN HCL 500 MG TABLET PO SCH ×2 (06:36→16:31)
[2022-10-13] MEDS: INSULIN LISPRO 100 UNITS/ML SQ PRN ×3 (06:36→19:54)
[2022-10-13 06:41] LABS: GLUCOMETER DEV NAME(LOC) BV3S.; GLUCOSE,POINT OF CARE 188 MG/DL (70-110)
[2022-10-13] MEDS: SOLIFENACIN SUCCINATE 5 MG TABLET PO SCH (08:04)
[2022-10-13] MEDS: NALTREXONE HCL 50 MG TABLET PO SCH (08:05)
[2022-10-13] MEDS: NITROFURANTOIN MONOHYD/M-CRYST 100 MG CAPSULE [MACROBID] PO SCH ×2 (08:05→16:30)
[2022-10-13] MEDS: OMEGA-3/DHA/EPA/FISH OIL 1,000 MG CAPSULE PO SCH (08:05)
[2022-10-13] MEDS: FOLIC ACID 1 MG TABLET PO SCH (08:05)
[2022-10-13] MEDS: LISINOPRIL 20 MG TABLET PO SCH (08:05)
[2022-10-13] MEDS: THIAMINE 100 MG TABLET PO SCH ×2 (08:05→16:31)
[2022-10-13] MEDS: MULTIVITAMINS WITH MINERALS, THERAPEUTIC TABLET PO SCH (08:05)
[2022-10-13] MEDS: LORazepam 2 MG TABLET PO PRN (08:06)
[2022-10-13 12:26] VITALS: BP 156/94
[2022-10-13 13:11] LABS: GLUCOMETER DEV NAME(LOC) BV3S.; GLUCOSE,POINT OF CARE 132 MG/DL (70-110)
[2022-10-13 16:46] LABS: GLUCOMETER DEV NAME(LOC) BV3S.; GLUCOSE,POINT OF CARE 286 MG/DL (70-110)
[2022-10-13] MEDS: INSULIN GLARGINE,HUM.REC.ANLOG 100 UNITS/ML SQ SCH (19:54)
[2022-10-13] MEDS: ATORVASTATIN CALCIUM 20 MG TABLET PO SCH (20:02)
[2022-10-13] MEDS: DIVALPROEX SODIUM 500 MG ER TABLET PO SCH (20:03)
[2022-10-13] MEDS: MELATONIN 5 MG TABLET PO SCH (20:03)
[2022-10-13 20:06] LABS: GLUCOMETER DEV NAME(LOC) BV3S.; GLUCOSE,POINT OF CARE 161 MG/DL (70-110)
[2022-10-13 20:45] VITALS: BP 151/78
[2022-10-14 06:27] LABS: GLUCOMETER DEV NAME(LOC) BV3S.; GLUCOSE,POINT OF CARE 233 MG/DL (70-110)
[2022-10-14] MEDS: MetFORMIN HCL 500 MG TABLET PO SCH ×2 (06:55→16:19)
[2022-10-14] MEDS: INSULIN LISPRO 100 UNITS/ML SQ PRN ×3 (06:57→20:23)
[2022-10-14 08:24] VITALS: BP 183/93
[2022-10-14] MEDS: SOLIFENACIN SUCCINATE 5 MG TABLET PO SCH (08:51)
[2022-10-14] MEDS: FOLIC ACID 1 MG TABLET PO SCH (08:53)
[2022-10-14] MEDS: NALTREXONE HCL 50 MG TABLET PO SCH (08:53)
[2022-10-14] MEDS: MULTIVITAMINS WITH MINERALS, THERAPEUTIC TABLET PO SCH (08:53)
[2022-10-14] MEDS: THIAMINE 100 MG TABLET PO SCH ×2 (08:53→16:19)
[2022-10-14] MEDS: NITROFURANTOIN MONOHYD/M-CRYST 100 MG CAPSULE [MACROBID] PO SCH ×2 (08:53→16:19)
[2022-10-14] MEDS: LISINOPRIL 20 MG TABLET PO SCH (08:53)
[2022-10-14] MEDS: OMEGA-3/DHA/EPA/FISH OIL 1,000 MG CAPSULE PO SCH (08:53)
[2022-10-14] MEDS: LORazepam 2 MG TABLET PO PRN (08:54)
[2022-10-14] MEDS: HALOPERIDOL 5 MG TABLET PO PRN (08:54)
[2022-10-14 09:00] VITALS: BP 138/89
[2022-10-14 12:06] LABS: GLUCOMETER DEV NAME(LOC) BV3S.; GLUCOSE,POINT OF CARE 182 MG/DL (70-110)
[2022-10-14] MEDS ORDERED: BENZOCAINE/MENTHOL LOZENGE PO PRN (13:00)
[2022-10-14 14:36] LABS: GLUCOMETER DEV NAME(LOC) POC.BV
[2022-10-14 16:51] LABS: GLUCOMETER DEV NAME(LOC) BV3S.; GLUCOSE,POINT OF CARE 212 MG/DL (70-110)
[2022-10-14 20:07] VITALS: BP 148/80
[2022-10-14 20:11] VITALS: BP 110/60
[2022-10-14] MEDS: MELATONIN 5 MG TABLET PO SCH (20:14)
[2022-10-14] MEDS: DIVALPROEX SODIUM 500 MG ER TABLET PO SCH (20:14)
[2022-10-14] MEDS: ATORVASTATIN CALCIUM 20 MG TABLET PO SCH (20:15)
[2022-10-14] MEDS: INSULIN GLARGINE,HUM.REC.ANLOG 100 UNITS/ML SQ SCH (20:22)
[2022-10-14 20:40] LABS: GLUCOMETER DEV NAME(LOC) BV3S.; GLUCOSE,POINT OF CARE 214 MG/DL (70-110)
[2022-10-15] MEDS: HALOPERIDOL 5 MG TABLET PO PRN (02:19)
[2022-10-15] MEDS: ZOLPIDEM TARTRATE 10 MG TABLET PO PRN (02:19)
[2022-10-15 06:31] LABS: GLUCOMETER DEV NAME(LOC) BV3S.; GLUCOSE,POINT OF CARE 142 MG/DL (70-110)
[2022-10-15] MEDS: MetFORMIN HCL 500 MG TABLET PO SCH ×2 (06:42→16:01)
[2022-10-15] MEDS: INSULIN LISPRO 100 UNITS/ML SQ PRN ×2 (06:50→12:11)
[2022-10-15] MEDS: FOLIC ACID 1 MG TABLET PO SCH (08:14)
[2022-10-15] MEDS: LISINOPRIL 20 MG TABLET PO SCH (08:14)
[2022-10-15] MEDS: NALTREXONE HCL 50 MG TABLET PO SCH (08:14)
[2022-10-15] MEDS: SOLIFENACIN SUCCINATE 5 MG TABLET PO SCH (08:14)
[2022-10-15] MEDS: NITROFURANTOIN MONOHYD/M-CRYST 100 MG CAPSULE [MACROBID] PO SCH ×2 (08:14→16:01)
[2022-10-15] MEDS: MULTIVITAMINS WITH MINERALS, THERAPEUTIC TABLET PO SCH (08:14)
[2022-10-15] MEDS: OMEGA-3/DHA/EPA/FISH OIL 1,000 MG CAPSULE PO SCH (08:14)
[2022-10-15] MEDS: LORazepam 2 MG TABLET PO PRN ×2 (08:14→15:57)
[2022-10-15] MEDS: THIAMINE 100 MG TABLET PO SCH ×2 (08:16→16:01)
[2022-10-15] MEDS ORDERED: PALIPERIDONE PALMITATE 156 MG/ML SYRINGE IM ONE (09:00)
[2022-10-15 10:19] VITALS: BP 135/79
[2022-10-15 10:21] VITALS: BP 135/79
[2022-10-15 12:16] LABS: GLUCOMETER DEV NAME(LOC) BV3S.; GLUCOSE,POINT OF CARE 193 MG/DL (70-110)
[2022-10-15 20:14] VITALS: BP 144/78
[2022-10-15] MEDS: MELATONIN 5 MG TABLET PO SCH (20:29)
[2022-10-15] MEDS: DIVALPROEX SODIUM 500 MG ER TABLET PO SCH (20:29)
[2022-10-15] MEDS: ATORVASTATIN CALCIUM 20 MG TABLET PO SCH (20:29)
[2022-10-15] MEDS: INSULIN GLARGINE,HUM.REC.ANLOG 100 UNITS/ML SQ SCH (20:36)
[2022-10-15 20:52] LABS: GLUCOMETER DEV NAME(LOC) BV3S.; GLUCOSE,POINT OF CARE 135 MG/DL (70-110)
[2022-10-16 06:31] LABS: GLUCOMETER DEV NAME(LOC) BV3S.; GLUCOSE,POINT OF CARE 96 MG/DL (70-110)
[2022-10-16] MEDS: MetFORMIN HCL 500 MG TABLET PO SCH ×2 (06:34→16:25)
[2022-10-16 08:18] VITALS: BP 169/82
[2022-10-16] MEDS: MULTIVITAMINS WITH MINERALS, THERAPEUTIC TABLET PO SCH (08:50)
[2022-10-16] MEDS: OMEGA-3/DHA/EPA/FISH OIL 1,000 MG CAPSULE PO SCH (08:50)
[2022-10-16] MEDS: LISINOPRIL 20 MG TABLET PO SCH (08:50)
[2022-10-16] MEDS: NALTREXONE HCL 50 MG TABLET PO SCH (08:50)
[2022-10-16] MEDS: FOLIC ACID 1 MG TABLET PO SCH (08:50)
[2022-10-16] MEDS: SOLIFENACIN SUCCINATE 5 MG TABLET PO SCH (08:50)
[2022-10-16] MEDS: THIAMINE 100 MG TABLET PO SCH ×2 (08:50→16:25)
[2022-10-16] MEDS: LORazepam 2 MG TABLET PO PRN ×2 (08:53→16:26)
[2022-10-16 10:45] VITALS: BP 145/88
[2022-10-16] MEDS: INSULIN LISPRO 100 UNITS/ML SQ PRN ×2 (11:56→20:35)
[2022-10-16 11:57] LABS: GLUCOMETER DEV NAME(LOC) BV3S.; GLUCOSE,POINT OF CARE 221 MG/DL (70-110)
[2022-10-16] MEDS: HALOPERIDOL 5 MG TABLET PO PRN (16:26)
[2022-10-16 17:21] LABS: GLUCOMETER DEV NAME(LOC) BV3S.; GLUCOSE,POINT OF CARE 230 MG/DL (70-110)
[2022-10-16] MEDS: DIVALPROEX SODIUM 500 MG ER TABLET PO SCH (20:25)
[2022-10-16] MEDS: ATORVASTATIN CALCIUM 20 MG TABLET PO SCH (20:25)
[2022-10-16] MEDS: MELATONIN 5 MG TABLET PO SCH (20:25)
[2022-10-16] MEDS: INSULIN GLARGINE,HUM.REC.ANLOG 100 UNITS/ML SQ SCH (20:28)
[2022-10-16 20:47] LABS: GLUCOMETER DEV NAME(LOC) BV3S.; GLUCOSE,POINT OF CARE 206 MG/DL (70-110)
[2022-10-17 02:19] VITALS: BP 146/76
[2022-10-17 06:36] LABS: GLUCOMETER DEV NAME(LOC) BV3S.; GLUCOSE,POINT OF CARE 112 MG/DL (70-110)
[2022-10-17] MEDS: MetFORMIN HCL 500 MG TABLET PO SCH ×2 (06:44→16:06)
[2022-10-17 08:30] VITALS: BP 159/80
[2022-10-17] MEDS ORDERED: PALIPERIDONE PALMITATE 156 MG/ML SYRINGE IM ONE (09:00)
[2022-10-17] MEDS: OMEGA-3/DHA/EPA/FISH OIL 1,000 MG CAPSULE PO SCH (09:42)
[2022-10-17] MEDS: MULTIVITAMINS WITH MINERALS, THERAPEUTIC TABLET PO SCH (09:42)
[2022-10-17] MEDS: FOLIC ACID 1 MG TABLET PO SCH (09:42)
[2022-10-17] MEDS: SOLIFENACIN SUCCINATE 5 MG TABLET PO SCH (09:42)
[2022-10-17] MEDS: THIAMINE 100 MG TABLET PO SCH ×2 (09:42→16:06)
[2022-10-17] MEDS: NALTREXONE HCL 50 MG TABLET PO SCH (09:42)
[2022-10-17] MEDS: LISINOPRIL 20 MG TABLET PO SCH (09:43)
[2022-10-17] MEDS: LORazepam 2 MG TABLET PO PRN ×2 (09:48→16:06)
[2022-10-17] MEDS: INSULIN LISPRO 100 UNITS/ML SQ PRN ×2 (12:09→21:05)
[2022-10-17 12:46] LABS: GLUCOMETER DEV NAME(LOC) BV3S.; GLUCOSE,POINT OF CARE 192 MG/DL (70-110)
[2022-10-17] MEDS: HALOPERIDOL 5 MG TABLET PO PRN (16:06)
[2022-10-17] MEDS: MELATONIN 5 MG TABLET PO SCH (20:12)
[2022-10-17] MEDS: DIVALPROEX SODIUM 500 MG ER TABLET PO SCH (20:12)
[2022-10-17 20:34] VITALS: BP 149/76
[2022-10-17 20:51] LABS: GLUCOMETER DEV NAME(LOC) BV3S.; GLUCOSE,POINT OF CARE 227 MG/DL (70-110)
[2022-10-17] MEDS: ATORVASTATIN CALCIUM 20 MG TABLET PO SCH (20:51)
[2022-10-17] MEDS: INSULIN GLARGINE,HUM.REC.ANLOG 100 UNITS/ML SQ SCH (21:04)
[2022-10-18 05:41] LABS: GLUCOMETER DEV NAME(LOC) BV3S.; GLUCOSE,POINT OF CARE 96 MG/DL (70-110)
[2022-10-18] MEDS: MetFORMIN HCL 500 MG TABLET PO SCH ×2 (06:44→16:15)
[2022-10-18 08:21] VITALS: BP 151/70
[2022-10-18] MEDS: NALTREXONE HCL 50 MG TABLET PO SCH (08:27)
[2022-10-18] MEDS: SOLIFENACIN SUCCINATE 5 MG TABLET PO SCH (08:27)
[2022-10-18] MEDS: THIAMINE 100 MG TABLET PO SCH ×2 (08:27→16:15)
[2022-10-18] MEDS: OMEGA-3/DHA/EPA/FISH OIL 1,000 MG CAPSULE PO SCH (08:27)
[2022-10-18] MEDS: LISINOPRIL 20 MG TABLET PO SCH (08:27)
[2022-10-18] MEDS: FOLIC ACID 1 MG TABLET PO SCH (08:27)
[2022-10-18] MEDS: LORazepam 2 MG TABLET PO PRN (08:27)
[2022-10-18] MEDS: MULTIVITAMINS WITH MINERALS, THERAPEUTIC TABLET PO SCH (08:27)
[2022-10-18] MEDS: INSULIN LISPRO 100 UNITS/ML SQ PRN ×3 (11:46→20:19)
[2022-10-18 11:56] LABS: GLUCOMETER DEV NAME(LOC) BV3S.; GLUCOSE,POINT OF CARE 201 MG/DL (70-110)
[2022-10-18] MEDS: NICOTINE 21 MG/24 HOUR PATCH TD SCH (16:15)
[2022-10-18 16:36] LABS: GLUCOMETER DEV NAME(LOC) BV3S.; GLUCOSE,POINT OF CARE 170 MG/DL (70-110)
[2022-10-18 20:06] VITALS: BP 150/75
[2022-10-18] MEDS: ATORVASTATIN CALCIUM 20 MG TABLET PO SCH (20:10)
[2022-10-18] MEDS: DIVALPROEX SODIUM 500 MG ER TABLET PO SCH (20:10)
[2022-10-18] MEDS: MELATONIN 5 MG TABLET PO SCH (20:10)
[2022-10-18] MEDS: INSULIN GLARGINE,HUM.REC.ANLOG 100 UNITS/ML SQ SCH (20:19)
[2022-10-18 20:41] LABS: GLUCOMETER DEV NAME(LOC) BV3S.; GLUCOSE,POINT OF CARE 147 MG/DL (70-110)
[2022-10-19] MEDS: LORazepam 2 MG TABLET PO PRN ×4 (00:02→18:08)
[2022-10-19] MEDS: ZOLPIDEM TARTRATE 10 MG TABLET PO PRN ×2 (00:02→20:41)
[2022-10-19 06:31] LABS: GLUCOMETER DEV NAME(LOC) BV3S.; GLUCOSE,POINT OF CARE 120 MG/DL (70-110)
[2022-10-19] MEDS: MetFORMIN HCL 500 MG TABLET PO SCH ×2 (06:39→16:53)
[2022-10-19] MEDS: OMEGA-3/DHA/EPA/FISH OIL 1,000 MG CAPSULE PO SCH (08:05)
[2022-10-19] MEDS: LISINOPRIL 20 MG TABLET PO SCH (08:05)
[2022-10-19] MEDS: SOLIFENACIN SUCCINATE 5 MG TABLET PO SCH (08:05)
[2022-10-19] MEDS: THIAMINE 100 MG TABLET PO SCH ×2 (08:05→17:00)
[2022-10-19] MEDS: MULTIVITAMINS WITH MINERALS, THERAPEUTIC TABLET PO SCH (08:05)
[2022-10-19] MEDS: NALTREXONE HCL 50 MG TABLET PO SCH (08:05)
[2022-10-19] MEDS: FOLIC ACID 1 MG TABLET PO SCH (08:05)
[2022-10-19] MEDS: NICOTINE 21 MG/24 HOUR PATCH TD SCH (08:10)
[2022-10-19 08:15] VITALS: BP 149/69
[2022-10-19] MEDS ORDERED: PALIPERIDONE PALMITATE 156 MG/ML SYRINGE IM ONE (09:00)
[2022-10-19] MEDS: INSULIN LISPRO 100 UNITS/ML SQ PRN ×2 (11:56→17:03)
[2022-10-19 12:26] LABS: GLUCOMETER DEV NAME(LOC) BV3S.; GLUCOSE,POINT OF CARE 148 MG/DL (70-110)
[2022-10-19] MEDS ORDERED: DIVA-80 PO (15:36)
[2022-10-19] MEDS ORDERED: MELA5TAB40 PO (15:36)
[2022-10-19] MEDS ORDERED: PALI117D IM (15:36)
[2022-10-19] MEDS ORDERED: NALT50TA PO (15:36)
[2022-10-19] MEDS ORDERED: OMEG-135 PO (15:36)
[2022-10-19] MEDS: HALOPERIDOL 5 MG TABLET PO PRN (16:53)
[2022-10-19 17:21] LABS: GLUCOMETER DEV NAME(LOC) BV3S.; GLUCOSE,POINT OF CARE 153 MG/DL (70-110)
[2022-10-19 20:00] VITALS: BP 159/88
[2022-10-19] MEDS: ATORVASTATIN CALCIUM 20 MG TABLET PO SCH (20:36)
[2022-10-19] MEDS: DIVALPROEX SODIUM 500 MG ER TABLET PO SCH (20:37)
[2022-10-19] MEDS: MELATONIN 5 MG TABLET PO SCH (20:37)
[2022-10-19] MEDS ORDERED: INSULIN GLARGINE,HUM.REC.ANLOG 100 UNITS/ML SQ SCH (21:00)
[2022-10-19 21:16] LABS: GLUCOMETER DEV NAME(LOC) BV3S.; GLUCOSE,POINT OF CARE 120 MG/DL (70-110)
[2022-10-20 06:26] LABS: GLUCOMETER DEV NAME(LOC) BV3S.; GLUCOSE,POINT OF CARE 88 MG/DL (70-110)
[2022-10-20] MEDS: MetFORMIN HCL 500 MG TABLET PO SCH (06:48)
[2022-10-20 08:10] VITALS: BP 133/62
[2022-10-20] MEDS: SOLIFENACIN SUCCINATE 5 MG TABLET PO SCH (08:51)
[2022-10-20] MEDS: NALTREXONE HCL 50 MG TABLET PO SCH (08:52)
[2022-10-20] MEDS: LISINOPRIL 20 MG TABLET PO SCH (08:52)
[2022-10-20] MEDS: THIAMINE 100 MG TABLET PO SCH (08:52)
[2022-10-20] MEDS: FOLIC ACID 1 MG TABLET PO SCH (08:52)
[2022-10-20] MEDS: OMEGA-3/DHA/EPA/FISH OIL 1,000 MG CAPSULE PO SCH (08:52)
[2022-10-20] MEDS: NICOTINE 21 MG/24 HOUR PATCH TD SCH (08:53)
[2022-10-20] MEDS: MULTIVITAMINS WITH MINERALS, THERAPEUTIC TABLET PO SCH (09:00)
[2022-10-20] MEDS ORDERED: METF-1211 PO (11:11)
[2022-10-20] MEDS ORDERED: LISI-662 PO (11:11)
[2022-10-20] MEDS ORDERED: ATOR80TA PO (11:13)
[2022-10-20] MEDS ORDERED: SOLI10TA PO (11:14)
[2022-10-20] MEDS ORDERED: INSLAN SQ (11:15)
== END 2022-10-20 13:10 | disposition home or self-care (01) | DRG 885 ==
LOC: EMS 21:46 → B3A 10-11 05:00
PROVIDERS: ADMIT Psychiatry & Neurology Psychiatry; ATTEND Psychiatry & Neurology Psychiatry
DX: F25.0 Schizoaffective disorder, bipolar type (principal); E11.65 Type 2 diabetes mellitus with hyperglycemia; N39.0 Urinary tract infection, site not specified; E11.22 Type 2 diabetes mellitus with diabetic chronic kidney disease; Z20.822 Contact with and (suspected) exposure to COVID-19; E78.5 Hyperlipidemia, unspecified; F15.10 Other stimulant abuse, uncomplicated; F17.210 Nicotine dependence, cigarettes, uncomplicated; F41.9 Anxiety disorder, unspecified; G47.00 Insomnia, unspecified; I12.9 Hypertensive chronic kidney disease with stage 1 through stage 4 chronic kidney disease, or unspecified chronic kidney disease; J44.9 Chronic obstructive pulmonary disease, unspecified; N18.1 Chronic kidney disease, stage 1; R32 Unspecified urinary incontinence; Z55.9 Problems related to education and literacy, unspecified; Z59.9 Problem related to housing and economic circumstances, unspecified; Z63.9 Problem related to primary support group, unspecified; Z65.3 Problems related to other legal circumstances; Z82.49 Family history of ischemic heart disease and other diseases of the circulatory system; Z83.3 Family history of diabetes mellitus; Z91.14 Patient's other noncompliance with medication regimen
CPT/HCPCS: 80053; 80061; 80164; 81001; 82962; 83036; 84439; 84443; 84703; 85025; 86592; 87086; 87186; 90686; 99285; G0480; J1815; Q9967

== ENCOUNTER 2023-01-26 13:18 | Emergency (ER) | payer MEDICARE ==
[~2023-01-26] VITALS: Ht 160 cm; Wt 52.3 kg
[~2023-01-26 13:18] MED LIST changes: -ARIP10TA38 PO; -ARIP15TA27 PO; -ARIP400S3 IM; -ATOR20TA65 PO; +ATOR80TA PO; -DIVA-80 PO; +DIVA500T53 PO; +LISI-662 PO; +PALI117D IM; +SOLI10TA PO
[2023-01-26 14:33] LABS: BASOPHILS % (AUTO) 0.4 % (0.0-2.0); EOSINOPHILS % (AUTO) 0.3 % (1.0-6.0); HEMATOCRIT 41.4 % (36-46); HEMOGLOBIN 14.2 g/dL (12.0-16.0); LYMPHOCYTES # (AUTO) 1.3 K/uL (1.0-4.8); LYMPHOCYTES % (AUTO) 17.9 % (22.0-44.0); MEAN CORPUSCULAR HGB CONC 34.2 G/dL (31.0-37.0); MEAN CORPUSCULAR VOLUME 94 fL (80-100); MONOCYTES # (AUTO) 0.6 K/uL (0.1-1.0); MONOCYTES % (AUTO) 8.1 % (2.0-9.0); NEUTROPHILS # (AUTO) 5.3 K/uL (1.8-7.7); NEUTROPHILS % (AUTO) 73.3 % (40.0-70.0); PLATELET COUNT (AUTO) 318 K/uL (150-450); RED BLOOD CELL COUNT(AUTO) 4.42 MIL/uL (4.00-5.20); RED CELL DISTRIBUTION WIDTH 14.7 % (11.5-14.5)
[2023-01-26 14:46] LABS: ANION GAP 10 mmol/L (8-16); CALCIUM, TOTAL 9.5 mg/dL (8.8-10.5); CARBON DIOXIDE 28 mmol/L (22-29); CHLORIDE 99 mmol/L (98-107); CREATININE 1.02 mg/dL (0.60-1.30); GLOMERULAR FILTR. RATE CALC 56 mL/min (>60); GLUCOSE,RANDOM 222 mg/dL (70-110); POTASSIUM 3.6 mmol/L (3.5-5.1); SODIUM SERUM 137 mmol/L (136-145); UREA NITROGEN, BLOOD 16 mg/dL (7-18)
[2023-01-26 14:57] LABS: ALANINE AMINOTRANSFERASE 15 U/L (12-78); ALBUMIN 3.7 g/dL (3.4-5.0); ALKALINE PHOSPHATASE 117 U/L (46-116); ASPARTATE AMINOTRANSFERASE 15 U/L (15-37); BILIRUBIN,TOTAL 0.4 mg/dL (0.1-1.0); HCG,QUANTITATIVE 2 mIU/mL (0-6); TOTAL PROTEIN, SERUM 8.8 g/dL (6.4-8.2)
[2023-01-26 18:32] VITALS: BP 130/76
== END 2023-01-26 21:13 | disposition home or self-care (01) ==
LOC: EMS 13:18
DX: F20.9 Schizophrenia, unspecified (principal); F32.A Depression, unspecified; E11.9 Type 2 diabetes mellitus without complications; I10 Essential (primary) hypertension; F17.210 Nicotine dependence, cigarettes, uncomplicated; F12.90 Cannabis use, unspecified, uncomplicated; F15.90 Other stimulant use, unspecified, uncomplicated; Z98.890 Other specified postprocedural states; Z88.8 Allergy status to other drugs, medicaments and biological substances
CPT/HCPCS: 99285; 80053; 84702; 85025; 36415; G0480

== ENCOUNTER 2024-02-22 22:31 | Emergency (ER) | payer MEDICARE ==
[~2024-02-22] VITALS: Ht 160 cm; Wt 71.4 kg
[2024-02-22 22:45] VITALS: BP 184/82; PULSE 96; RESP 18; TEMP 98.2
[2024-02-22] MEDS ORDERED: ARIP15TA2 PO (22:59)
[2024-02-22] MEDS ORDERED: SOLI10TA PO (22:59)
[2024-02-22] MEDS ORDERED: DIVA500T53 PO ×2 (22:59)
[2024-02-22] MEDS ORDERED: METF-1211 PO (22:59)
== END 2024-02-22 23:09 | disposition home or self-care (01) ==
LOC: EMS 22:33
DX: F25.9 Schizoaffective disorder, unspecified (principal); F32.A Depression, unspecified; E11.9 Type 2 diabetes mellitus without complications; I10 Essential (primary) hypertension; F17.210 Nicotine dependence, cigarettes, uncomplicated; F12.90 Cannabis use, unspecified, uncomplicated; F15.90 Other stimulant use, unspecified, uncomplicated; Z98.890 Other specified postprocedural states; Z88.8 Allergy status to other drugs, medicaments and biological substances
CPT/HCPCS: 99281; Z7502

== ENCOUNTER 2024-03-25 18:45 | Emergency (ER) | payer MEDICARE, OTHER ==
[~2024-03-25] VITALS: Ht 160 cm; Wt 71.4 kg
[~2024-03-25 18:45] MED LIST changes: +ARIP15TA2 PO; -NALT50TA PO; +NALT50TA6 PO
[2024-03-25 19:56] VITALS: BP 177/81; PULSE 87; RESP 17; TEMP 98.4
[2024-03-25] MEDS ORDERED: IBUP-1554 PO (20:21)
[2024-03-25] MEDS ORDERED: ATOR20TA PO (20:24)
[2024-03-25] MEDS: IBUPROFEN 600 MG TABLET PO ONE (20:54)
== END 2024-03-25 21:03 | disposition home or self-care (01) ==
LOC: EMS 18:48
DX: F20.0 Paranoid schizophrenia (principal); E11.9 Type 2 diabetes mellitus without complications; I10 Essential (primary) hypertension; F20.9 Schizophrenia, unspecified; F32.A Depression, unspecified; F17.210 Nicotine dependence, cigarettes, uncomplicated; F12.90 Cannabis use, unspecified, uncomplicated; F15.90 Other stimulant use, unspecified, uncomplicated; Z87.81 Personal history of (healed) traumatic fracture; Z48.00 Encounter for change or removal of nonsurgical wound dressing
CPT/HCPCS: 99282; Z7502; Z7610

== ENCOUNTER 2024-03-26 19:12 | Emergency (ER) | payer MEDICARE, OTHER ==
[~2024-03-26] VITALS: Ht 160 cm; Wt 71.0 kg
[~2024-03-26 19:12] MED LIST changes: +ATOR20TA PO; -ATOR80TA PO; +IBUP-1554 PO; -SOLI10TA PO
[2024-03-26 19:49] VITALS: BP 156/86; PULSE 80; RESP 16; TEMP 98.5
[2024-03-26 22:13] LABS: BASOPHILS % (AUTO) 0.5 % (0.0-2.0); EOSINOPHILS % (AUTO) 0.5 % (1.0-6.0); HEMATOCRIT 36.8 % (36-46); HEMOGLOBIN 12.3 g/dL (12.0-16.0); LYMPHOCYTES # (AUTO) 2.6 K/uL (1.0-4.8); LYMPHOCYTES % (AUTO) 33.2 % (22.0-44.0); MEAN CORPUSCULAR HEMOGLOBIN 32.1 pg (26.0-34.0); MEAN CORPUSCULAR HGB CONC 33.5 G/dL (31.0-37.0); MEAN CORPUSCULAR VOLUME 96 fL (80-100); MONOCYTES # (AUTO) 0.6 K/uL (0.1-1.0); NEUTROPHILS # (AUTO) 4.5 K/uL (1.8-7.7); NEUTROPHILS % (AUTO) 57.8 % (40.0-70.0); PLATELET COUNT (AUTO) 439 K/uL (150-450); RED BLOOD CELL COUNT(AUTO) 3.83 MIL/uL (4.00-5.20); RED CELL DISTRIBUTION WIDTH 14.4 % (11.5-14.5); WHITE BLOOD COUNT (AUTO) 7.7 K/uL (4.5-11.0)
[2024-03-26 22:19] LABS: ANION GAP 6 mmol/L (8-16); CARBON DIOXIDE 29 mmol/L (22-29); CHLORIDE 102 mmol/L (98-107); CREATININE 0.85 mg/dL (0.60-1.30); GLOMERULAR FILTR. RATE CALC > 60 mL/min (>60); GLUCOSE,RANDOM 315 mg/dL (70-110); POTASSIUM 3.8 mmol/L (3.5-5.1); SODIUM SERUM 137 mmol/L (136-145); UREA NITROGEN, BLOOD 16 mg/dL (7-18)
[2024-03-26 22:25] LABS: ALANINE AMINOTRANSFERASE 7 U/L (12-78); ALBUMIN 2.6 g/dL (3.4-5.0); ALKALINE PHOSPHATASE 102 U/L (46-116); ASPARTATE AMINOTRANSFERASE 10 U/L (15-37); BILIRUBIN,TOTAL 0.3 mg/dL (0.1-1.0); TOTAL PROTEIN, SERUM 8.3 g/dL (6.4-8.2)
[2024-03-26 22:38] LABS: ALCOHOL, BLOOD (SERUM) < 3 mg/dL (0-10)
[2024-03-26] MEDS: INSULIN REGULAR, HUMAN 100 UNITS/ML SQ ONE (22:41)
[2024-03-26] MEDS: IBUPROFEN 600 MG TABLET PO ONE (22:41)
[2024-03-27 12:56] LABS: GLUCOMETER DEV NAME(LOC) ER.7; GLUCOSE,POINT OF CARE 268 MG/DL (70-110)
== END 2024-03-26 22:57 | disposition home or self-care (01) ==
LOC: EMS 19:12
DX: R07.89 Other chest pain (principal); E11.65 Type 2 diabetes mellitus with hyperglycemia; I10 Essential (primary) hypertension; F20.9 Schizophrenia, unspecified; F32.A Depression, unspecified; F17.210 Nicotine dependence, cigarettes, uncomplicated; F12.90 Cannabis use, unspecified, uncomplicated; F15.90 Other stimulant use, unspecified, uncomplicated
CPT/HCPCS: 99283; 80053; 82962; 85025; 36415; 96372; G0480; J1815

== ENCOUNTER → 2025-01-03 | Emergency (ER) | payer OTHER ==
[~2025-01-03] VITALS: Ht 152.4 cm; Wt 71.4 kg
[~2025-01-03] MED LIST changes: +ACET-3385 PO; +DIVA-153 PO; -DIVA500T53 PO
[2025-01-03 02:55] VITALS: BP 148/89; PULSE 98; RESP 16; TEMP 97.8; O2SAT 100
== END | disposition left against medical advice (07) ==
LOC: EMS 02:46
DX: Z76.0 Encounter for issue of repeat prescription (principal); Z53.21 Procedure and treatment not carried out due to patient leaving prior to being seen by health care provider